=== PATIENT | male | born 1930 | race Caucasian/White ===

== ENCOUNTER 2016-08-28 02:16 | Inpatient (IN) ==
[2016-08-28 02:49] LABS: MANUAL DIFF NEEDED? NO; URINE SOURCE CLEAN CATCH
[2016-08-28 02:54] LABS: BASO% 0.2 % (0.0-0.8); EOS# 0.01 X1000 (0.0-0.7); EOS% 0.1 % (0.0-10.0); HEMATOCRIT 40.1 % (42.0-52.0); HEMOGLOBIN 13.4 g/dL (14.0-18.0); IMM GRAN# 0.08 X1000 (0.0-0.04); IMM GRAN% 0.6 % (0.0-0.5); LYMPH% 7.1 % (20.5-51.1); MCH 32.6 PG (27-31); MCHC 33.4 g/dL (33-37); MCV 97.6 FL (81-99); MONO# 1.64 X1000 (0.11-0.59); MONO% 12.9 % (1.7-9.3); MPV 10.3 FL (7.4-10.4); NEUT% 79.1 % (42.2-75.2); PLT 163 X1000 (130-400); RBC 4.11 XMIL (4.7-6.1)
[2016-08-28 03:05] LABS: UR AMPHETAMINES QUAL NONE DETECTED (NONE DETECT); UR BARBITUATES QUAL NONE DETECTED (NONE DETECT); UR BENZODIAZEPIN QUAL NONE DETECTED (NONE DETECT); UR CANNABINOIDS QUAL NONE DETECTED (NONE DETECT); UR COCAINE QUAL NONE DETECTED (NONE DETECT); UR METHADONE QUAL NONE DETECTED (NONE DETECT); UR OPIATES QUAL NONE DETECTED (NONE DETECT); UR OXYCODONE QUAL NONE DETECTED (NONE DETECT); UR PCP QUAL NONE DETECTED (NONE DETECT)
[2016-08-28 03:17] LABS: ALBUMIN 3.3 g/dL (3.5-5.0); CALCIUM 9.1 mg/dL (8.8-10.2); POTASSIUM 3.5 mmol/L (3.5-5.1); TOTAL BILIRUBIN 0.69 mg/dL (0.20-1.00); TOTAL PROTEIN 6.1 g/dL (6.3-8.3)
[2016-08-28 03:21] LABS: INR 1.07; PROTIME 11.3 Seconds (9.2-11.7); PTT 30.6 Seconds (22.0-36.0)
[2016-08-28] MEDS ORDERED: HEPARIN IV ONE (03:30)
[2016-08-28] MEDS ORDERED: LASIX IV ONE (03:31)
--- NOTE | 2016-08-28 03:33 | PROVIDER DOCUMENTATION ---
This chart was entered by Demetria Russell Scribe, acting as scribe for Arnulfo Michel MD. HPI-General Adult - General Stated Complaint: WEAKNESS Time Seen by Provider: 08/28/16 02:22 Source: patient Allergies/Adverse Reactions: Patient Allergies Allergy/AdvReac Type Severity Reaction Status Date / Time morphine Allergy SHORTNESS Verified 08/11/16 21:33 OF BREATH Home Medications: Home Medication List Medication Instructions Recorded Confirmed Last Taken Type Alfuzosin HCl [Alfuzosin HCl ER] 1 tab PO DAILY 08/11/16 08/28/16 08/27/16 08: 00 History Aspirin 1 tab PO DAILY 08/11/16 08/28/16 08/27/16 08:00 History Budesonide/Formoterol Inhaler 1 - 2 puff INH PRN PRN 08/11/16 08/28/16 08/27/16 18:00 History [Symbicort 160/4.5 Microgm Inhaler] Furosemide 1.5 tab PO DAILY 08/11/16 08/28/16 08/27/16 08:00 History Lovastatin 2 tab PO DAILY 08/11/16 08/28/16 08/27/16 08:00 History Oxybutynin [Ditropan] 1 tab PO BID 08/11/16 08/28/16 08/27/16 21:00 History Prednisone 1 tab PO DAILY 08/11/16 08/28/16 08/27/16 08:00 History Tramadol HCl 1 tab PO Q4H PRN 08/11/16 08/28/16 08/27/16 19:00 History - History of Present Illness -Gen Adult Nature of Presenting Problems: 86 Y/O M presents to ED with weakness. Pt states over the last weak he has gotten worse, c/o of fatigued, states at home 1wk of weakness, stating that tonight he couldn't get off of couch, denies all other symptoms except being fatigued. States he hasn't eat in a day and a half, with occasional N. States that he did drink 1 beer. Location of Pain/Injury: reports: generalized Pain Radiation: reports: no radiation Severity: reports: moderate Onset/Duration: reports: 1 week ago Timing: reports: still present Associated Symptoms: reports: fatigue, nausea. denies: fever/chills, vomiting Review of Systems - Adult - REVIEW OF SYSTEMS - ADULT Constitutional: reports: salo. denies: chills, fever Eyes: reports: no symptoms reported Ears, Nose, Mouth & Throat: reports: no symptoms reported Cardiovascular: reports: no symptoms reported Respiratory: reports: no symptoms reported Gastrointestinal: reports: nausea. denies: abdominal pain, diarrhea, vomiting Genitourinary: reports: no symptoms reported Musculoskeletal: reports: no symptoms reported Integumentary: reports: no symptoms reported Neurological: reports: no symptoms reported Psychiatric: reports: no symptoms reported Endocrine: reports: no symptoms reported Hematologic/Lymphatic: reports: no symptoms reported Allergic/Immunologic: reports: no symptoms reported All Other Systems: Reviewed and Negative Past History - Adult - PAST MEDICAL HISTORY-ADULT Review of Records: reports: Old Records Reviewed, Nursing Assessment Review, Medications Reviewed, Social history reviewed & non-contributory. Major Childhood Illnesses: reports: denies history Cardiovascular: reports: cardiac disease, HTN Respiratory: reports: denies history Gastrointestinal: reports: cancer (bladder) Obstetrical/Gynecological: reports: denies history Genitourinary: reports: denies history Musculoskeletal: reports: denies history Neurological: reports: denies history Endocrine/Immune: reports: denies history Other Conditions: reports: denies history - PRIOR SURGERIES/PROCEDURES Surgical/Procedure History: reports: appendectomy, cholecystectomy - IMMUNIZATION STATUS Childhood Immunizations: See Nurse Assessment Flu Vaccine: See Nurse Assessment - FAMILY HISTORY Family History: reviewed, not pertinent Physical Exam-General - CONSTITUTIONAL General Appearance: alert, no apparent distress - EYES Eyes: PERRL/EOMI, pink conjunctivae, anisocoria - HEAD, EARS, NOSE, MOUTH & THROAT HENMT: normocephalic/atraumatic, moist mucous membranes, normal ENT inspection, TMs normal, pharynx normal - NECK Neck: non-tender, full range of motion, supple, normal inspection - RESPIRATORY Respiratory: lungs clear, normal breath sounds - CARDIOVASCULAR Cardiovascular: irregularly irregular. negative: regular rate, rhythm, no murmur - GASTROINTESTINAL (ABDOMEN) Abdominal Exam: normal bowel sounds, non tender, soft - LYMPHATIC Lymphatic: no adenopathy - MUSCULOSKELETAL Back Exam: normal inspection Extremity: normal range of motion, erythema (pinkish-redness), pedal edema (2+) . negative: inflammation - SKIN Integumentary: normal color, normal turgor, warm/dry - NEUROLOGIC Neurologic: grossly normal - PSYCHIATRIC Psych/Mental Status: normal mood/affect, normal thought content, normal thought process, oriented x 3 Progress - PLAN OF CARE/RESULTS Progress/Plan/Lab Results: Orders Category Date Time Status Cardiac Monitoring DIRECTED Care 08/28/16 02:23 Active Finger Stick Blood Sugar (ED) DIRECTED Care 08/28/16 02:23 Active Graham Cath Insertion ORDERED Care 08/28/16 02:26 Active Oxygen Therapy- ED Nursing DIRECTED Care 08/28/16 02:23 Active Saline Loc NOW Care 08/28/16 02:23 Active CHEST-PORTABLE [RAD] Stat Exams 08/28/16 02:23 Ordered HEAD W/O CONTRAST [CT] Stat Exams 08/28/16 02:23 Ordered ABG [RESP] Routine Lab 08/28/16 02:23 Ordered ALCOHOL BLOOD Stat Lab 08/28/16 02:23 Uncollected CBC WITH ELECTRONIC DIFF [HEME] Stat Lab 08/28/16 02:23 Uncollected CK PROFILE [SP CHEM] Stat Lab 08/28/16 02:23 Uncollected COMPREHENSIVE METABOLIC PANEL [CHEM] Stat Lab 08/28/16 02:23 Uncollected LACTATE, PLASMA [CHEM] Stat Lab 08/28/16 02:23 Uncollected PROTIME WITH INR [COAG] Stat Lab 08/28/16 02:23 Uncollected PTT [COAG] Stat Lab 08/28/16 02:23 Uncollected TROPONIN T Stat Lab 08/28/16 02:23 Uncollected URINALYSIS W/POSS RFLX CULT-1 [URINALYSIS] Stat Lab 08/28/16 02:23 Uncollected URINE DRUG SCREEN Stat Lab 08/28/16 02:23 Uncollected Pulse Oximetry Stat Oth 08/28/16 02:23 Active EKG [EKG] Stat Ther 08/28/16 02:18 Ordered Result Diagrams: 08/28/16 02:30 08/28/16 02:30 - EKG 1 Time of EKG reading by physician:: 02:15 EKG Read and Signed by:: Arnulfo Michel EKG Interpretation (*Must complete 3 of following elements*): Abnormal Rate: 103 Rhythm: Afib with RVR [place]: left (DEVIATION) QRS: RBB, LVH (VOLTAGE CRITERIA) Comments: Abnormal ECG, Inferior&Anterior Infract T wave abnormality - XRAY 1 XRAY Study: Chest Impression: Normal (cardiomegaly) - CONSULTS/PCP/HOSPITALIST Notification #1 *Consult/PCP/Hospitalist*: Dr Call Time Discussed: 03:32 Consult Disposition: Admit Departure - Departure Time of Disposition Decision: 03:32 DIAGNOSIS: Elevated troponin Disposition: ADMITTED INPATIENT 09 Certified Medical Emergency: Emergent Condition: Fair Referrals and Follow-Ups: Benja Beckham [Primary Care Provider] - - Critical Care Note This patient required my direct & personal management of CC.: Yes Total Time (mins): 60 Critical Care Statement: This patient required my direct personal management to treat or rule out processes, the absence of which, could potentiallly result in sudden, clinically significant life or limb threatening deterioration. This chart was documented by the indicated scribe, (Demetria Russell Scribe) and accurately reflects the services I performed and decisions made by me, Arnulfo Michel MD, as attested by the provider's signature.
[2016-08-28 03:34] LABS: UR EPITHELIAL CELLS <10 /HPF (<10); URINE BACTERIA 4+ /HPF; URINE RBC <10 /HPF (<10); URINE WBC TNTC /HPF (<10)
[2016-08-28] MEDS: HEPARIN 25,000 UNITS/D5W 25,000 UNIT/250 ML IV.SOLN IV SCH (03:35)
[2016-08-28] MEDS ORDERED: ROCEPHIN 1 GM/NS 1 GM/50 ML IVPB IV ONE (03:56)
[2016-08-28 04:18] LABS: COLOR YELLOW; URINE CULTURE NEEDED? YES
[2016-08-28 04:19] LABS: BILIRUBIN URINE NEGATIVE (NEGATIVE); BLOOD URINE SMALL (NEGATIVE); GLUCOSE URINE NEGATIVE (NEGATIVE); PROTEIN URINE 30 mg/dL (NEGATIVE); TURBIDITY URINE HAZY (CLEAR); UROBILINOGEN URINE 2 mg/dL (NORMAL)
[2016-08-28 04:20] LABS: LEUKOCYTES URINE MODERATE (NEGATIVE); NITRITE URINE NEGATIVE (NEGATIVE); URINE CASTS NONE SEEN; URINE CRYSTALS NONE SEEN; URINE MICRO REVIEW NEEDED? YES; URINE SMALL ROUND CELLS NONE SEEN
[2016-08-28 04:34] LABS: ALLEN TEST YES; BE 5.2 mmoll (-3.0-3.0); BLOOD TYPE ARTERIAL; DRAW SITE R RADIAL; METHB 0.3 % (0.0-1.5); O2(CT) 20.8 mL/dL (15.0-23.0); PCO2(98.6) 39 mmHg (35-45); PO2(98.6) 70 mmHg (60-100); SAMPLE BLOOD; SAO2 98.1 % (95.0-100.0); THB 15.7 g/dL (11.5-17.4); pH(98.6) 7.48 (7.35-7.45)
[2016-08-28 04:37] LABS: MODALITY ROOM AIR
[2016-08-28] MEDS ORDERED: ZOFRAN IV PRN (05:11)
--- NOTE | 2016-08-28 05:25 | HISTORY AND PHYSICAL ---
CHIEF COMPLAINT: Weakness. PRIMARY CARE PHYSICIAN: Dr. Mannie Beckham. HISTORY OF PRESENTING ILLNESS: An 86-year-old male with a history of hypertension, hyperlipidemia, coronary artery disease, and bladder cancer, who had presented to the emergency department with a nyck-lpk-[id number]-half history of having decline. The patient states that he was getting weak and unable to ambulate, and symptoms were worsening throughout the week. Subsequently, he had come to the emergency department. In the ER, he was evaluated. He had routine laboratories done, which did show he had elevated troponins. Due to his presenting symptoms, it was suspected that he had an OK. Patient will need hospitalization for further management. At the time of my examination, he had denied any headache, vision changes, fevers, chills, chest pain, shortness of breath, but complained of having weakness and not feeling well. PAST MEDICAL HISTORY: Includes hypertension, hyperlipidemia, coronary artery disease, bladder cancer. PAST SURGICAL HISTORY: Coronary artery bypass, cholecystectomy, appendectomy. ALLERGIES: Morphine. CURRENT MEDICATIONS: Listed in the MAR. SOCIAL HISTORY: Former smoker. History of social alcohol use. Denies any illicit drug use. FAMILY HISTORY: Positive for coronary artery disease in father. REVIEW OF SYSTEMS: Twelve point review of systems is listed as in HPI. Other systems negative. PHYSICAL EXAMINATION: GENERAL: Cooperative, friendly male. He is resting comfortably now. VITAL SIGNS: Temperature 99.2 degrees, pulse 94, respiration 18, blood pressure 154/69, saturating 93% on room air. HEENT: Atraumatic, normocephalic. Extraocular movements intact. PERRLA. NECK: No masses. CHEST: Clear to auscultation. CARDIOVASCULAR: Regular rate and rhythm. ABDOMEN: Soft. Positive bowel sounds. EXTREMITIES: +1 edema. NEUROLOGIC: He is awake, alert, oriented x3. GENITOURINARY: No bladder distention. SKIN: Warm. LABORATORIES AND STUDIES: WBC 12.76, hemoglobin 13.4, hematocrit 40.1, platelets 163,000. Troponin is 0.138. Sodium 140, potassium 3.5, chloride 96, CO2 29, BUN is 39, creatinine 1.4, glucose is 91. UA showed +4 bacteria and leukocytes. ASSESSMENT: This is an 86-year-old male with a history of coronary artery disease, hypertension, hyperlipidemia, who had presented to the emergency department with a week-and-a- half history of declining and worsening weakness. He was evaluated in the ER. He was found to have elevated troponins, with suspicion for possible myocardial infarction. Subsequently, he will need hospitalization for further management. 1. Acute myocardial infarction, with elevated troponin. 2. History of coronary artery disease. 3. Hypertension. 4. Hyperlipidemia. 5. Urinary tract infection. 6. Generalized weakness. PLAN: 1. We will admit patient to [facility]. 2. Continue with cardiac workup. Check EKG, serial cardiac enzymes. Have patient continue management on heparin. 3. We will consult Cardiology. 4. We will monitor blood pressure closely. Resume antihypertensive agent. 5. Restart his statin. 6. We will put patient on IV antibiotics. 7. We will consult Physical Therapy. 8. The patient is already on deep venous thrombosis prophylaxis with heparin. 9. We will continue to follow and reassess. cc: Miko Jewell MD MTDD
--- NOTE | 2016-08-28 07:31 | Diag Imaging Result Doc PS360 ---
EXAM: CHEST-PORTABLE HISTORY: AMS TECHNIQUE: Direct AP portable chest dated 08/28/2016 at 0245 hours COMMENT: The inspiration is slightly better than on 08/11/2016. The heart size remains at the upper limits of normal. No definite acute pulmonary disease is present. IMPRESSION: Borderline cardiomegaly. Electronically signed by Roberto Miranda 08/28/2016 7:28 AM
[2016-08-28 09:37] LABS: INR 1.13
--- NOTE | 2016-08-28 09:55 | CONSULTATION ---
DATE OF CONSULTATION: 08/28/2016 INDICATION FOR THE CONSULTATION: Elevated troponin. HISTORY OF PRESENT ILLNESS: Mr. Jang is an 86-year-old, white male who is an extremely poor historian. He has a history of hyperlipidemia and coronary artery disease with previous bypass grafting performed several years ago in [place]. He now currently follows with Dr. Mcclure, last seen by Dr. Mcclure in December of 2015. The patient presented for about 1-2 weeks' worth of progressive weakness. This does not have any lateralizing symptom and seems to be very diffuse. He subsequently this morning reported that he could not get off the couch and subsequently called an ambulance. He reports a history of chest pain occurring on a relatively chronic basis with no recent changes but he is unable to clarify exactly what causes these or how often they are occurring or what it feels like. Again, it does not seem like it has changed significantly recently. He reports his lower extremities have been swelling more recently and he sounds like he has increased his dose of Lasix at home. He denies any overt orthopnea. He reports good oral intake in the preceding 1-2 weeks. Prior to the last 1-2 weeks, it does not sound like he was very active and was mostly couch-bound secondary to weakness as well as right hip pain. He has a history of bladder cancer previously and has reported some dysuria as well but no recent fevers. PAST MEDICAL HISTORY: Per chart review is significant for: 1. Coronary artery disease with history of bypass grafting. This was done in [place] several years ago and I do not have records of this operative report. 2. History of previous myocardial infarction clarified by myocardial perfusion scanning in the fall of 2015 that showed an inferior scar. 3. Hypertension. 4. Hyperlipidemia. 5. Peripheral vascular disease in the form of carotid artery disease. 6. Peptic ulcer disease. 7. COPD. 8. Hyperlipidemia. FAMILY HISTORY: Significant for coronary disease in his father. SOCIAL HISTORY: Previous smoker, quit I believe 16 years ago. No current alcohol. REVIEW OF SYSTEMS: A 10 system review of systems is negative except for those things mentioned in the HPI. PHYSICAL EXAMINATION: Vital Signs: During this hospitalization, he has been afebrile but notably on August 11, he was febrile to 102.8 and was sent home from the ER. His heart rate is 85. His blood pressure is 134/69. His current weight is listed as 149 pounds. However , he was listed at 190 when he came in, which was a verbal. Generally: He is in no acute distress. He is somewhat ill appearing. HEENT: Oropharynx is moist. Poor dentition. Eye examination shows pink conjunctivae. White sclerae. Neck: Examination shows no obvious thyromegaly or thyroid tenderness. Cardiovascular: He sounds to be in a regular rate and rhythm. He has no obvious murmurs. He has no S3. He has no lower extremity edema. Chest: Examination sounds clear to auscultation bilaterally. He has poor inspiratory effort. Abdomen: Soft, nontender, nondistended. He has no obvious organomegaly. Skin Examination: Warm and dry throughout without any rashes. Neurological: He is moving all extremities well. Cranial nerves 2 -12 are intact without any sensation deficits. Psychiatric: He attempts to answer all questions but is not a very good historian. He has normal mood and affect. PERTINENT DATA: His EKG shows sinus rhythm, rate of 103 beats per minute. He has a nonspecific intraventricular conduction delay. His laboratory data shows a white count of 12.7, his hematocrit is 40, his platelet count is 163,000. His ABG shows a pH of 7.48, pCO2 of 39, PO2 of 70. That is on room air. His lactate was 2. His sodium was 140, potassium was 3.5, his BUN was 39, creatinine was 1.4. Two weeks ago, it was 44 and 1.5 respectively. His troponin is 0.138 on the 1st check with a proBNP of 2601. Urinalysis has too numerous to count WBCs and 4+ bacteria. He had a chest x-ray performed that showed evidence for borderline cardiomegaly. ASSESSMENT: 1. Elevated troponin in a patient with a history of coronary artery disease. 2. Urinary tract infection. 3. Diffuse weakness. PLAN: Presently, I would tend to treat the patient medically, considering his poor ability to provide any history as well as difficulty in determining exactly what his symptomatology is. He is not on any medications at home other than oral Lasix. Regarding his history of heart failure, he had an EF in the 40% range by echocardiogram. His nuclear scan showed a preserved EF. I would continue him on aspirin, his oral Lasix. We will keep the heparin going for now and continue to trend his troponins. Echocardiogram is currently pending. We may consider doing myocardial perfusion imaging in the near future. The patient is quite debilitated at baseline and this has only progressed. We will continue to follow for now. cc: Oleg Toro MD MTDHetal
[2016-08-28] MEDS ORDERED: POTASSIUM CHLORIDE 20 MEQ/SWI 20 MEQ/100 ML IVPB IV ONE (10:00)
[2016-08-28 10:04] LABS: PTT HEPARIN PROTOCOL 83.7 Seconds
[2016-08-28] MEDS: PREDNISONE PO SCH (10:20)
[2016-08-28] MEDS: UROXATRAL PO SCH (10:20)
[2016-08-28] MEDS: DITROPAN PO SCH ×2 (10:20→22:20)
[2016-08-28] MEDS: TOPROL XL PO SCH (10:20)
[2016-08-28] MEDS: LASIX PO SCH (10:20)
[2016-08-28] MEDS: ASPIRIN PO SCH (10:21)
[2016-08-28] MEDS ORDERED: VANCOMYCIN IV PER PHARMACY MISC SCH (12:00)
--- NOTE | 2016-08-28 12:27 | PROGRESS NOTE ---
DATE: 08/28/2016 SUBJECTIVE: The patient is awake, alert, and oriented. Answers questions appropriately. He denies having any chest pain. Denies having any nausea, vomiting, or diarrhea. The patient complained of having pain in his both lower extremities and buttocks. OBJECTIVE: Vital Signs: Blood pressure is 134/69, pulse of 85, respirations 18, temperature of 98 degrees, saturation is 100% on 2 L nasal cannula. General Appearance: Elderly white male, in moderate distress due to pain. HEENT: Anicteric sclerae. Clear conjunctivae. Neck: Supple. No JVD. No bruit. Cardiovascular: S1 and S2. Normal rate and rhythm. No murmur, rubs, or gallops. Pulmonary: Clear to auscultation bilaterally. GI: Soft, nontender, nondistended. Normoactive bowel sounds. Musculoskeletal: He has bilateral lower extremity cellulitis and venous stasis. Very warm to touch. His buttocks, he does have a stage II-III sacral decubitus ulcer. Significant Laboratory Data: Sodium 140, potassium 3.5, chloride 96, bicarb 29, BUN 39, creatinine 1.4. Troponin elevated at 0.138. ProBNP is at 2601. ASSESSMENT AND PLAN: This is an 86-year-old admitted to the hospital for weakness and deconditioning. 1. Bilateral lower extremity cellulitis and sacral decubitus ulcer. We will consult wound care. We will send blood culture. Escalate his antibiotic coverage to Zosyn and vancomycin until cultures return. 2. Urinary tract infection. Antibiotic as above. 3. Troponin elevation, probably in the setting of acute renal failure. The patient did not complain of any chest pain. Cardiology consulted. Echocardiogram is pending but the patient is on a heparin drip. We will get cardiology input before stopping the heparin drip. The patient is getting serial troponins currently. 4. Hyperlipidemia. The patient is on Mevacor. 5. Benign prostatic hypertrophy. Continue Uroxatral. 6. Code status. The patient does not want to be intubated or have any chest compression.
[2016-08-28] MEDS ORDERED: VANCOMYCIN 2,000 MG in NS 500 ML IV ONE (14:00)
[2016-08-28] MEDS: ZOSYN 3.375 GM/NS 3.375 GM/50 ML IVPB IV SCH ×3 (14:13→23:53)
--- NOTE | 2016-08-28 15:36 | ECHO REPORT ---
ORDER DATE: 08/28/2016 ECHOCARDIOGRAPHIC MEASUREMENTS: 1. Interventricular septum 1.0, left ventricular posterior wall 1.1, diastolic diameter 5.4, left atrium 3.7, aorta 3.5. 2. Aortic valve leaflets were sclerosed, trileaflet. Pulmonic valve was normal. There is trace pulmonary regurgitation. Tricuspid valve was normal. Mitral valve was normal. 3. Normal left ventricular cavity size. Reduced systolic function. Estimated ejection fraction of 30%-35%. 4. Peak velocity across the aortic valve was 2.2 m/sec. There is no aortic stenosis. There is mild aortic regurgitation. There is mild mitral regurgitation. 5. Mild tricuspid regurgitation. Peak velocity across the tricuspid valve was 3 m/sec. Pulmonary artery systolic pressure of 46 mmHg. 6. There is no pericardial effusion or obvious intracardiac mass or thrombus seen. 7. Technically suboptimal study. Poor acoustic window. cc: MD Miko Dahl MD
[2016-08-28] MEDS: MEVACOR PO SCH (22:20)
[2016-08-29] MEDS: HEPARIN 25,000 UNITS/D5W 25,000 UNIT/250 ML IV.SOLN IV SCH (03:43)
[2016-08-29] MEDS ORDERED: ROCEPHIN 1 GM/NS 1 GM/50 ML IVPB IV SCH (04:00)
[2016-08-29 05:05] LABS: MANUAL DIFF NEEDED? NO
[2016-08-29 05:20] LABS: BASO% 0.1 % (0.0-0.8); EOS# 0.02 X1000 (0.0-0.7); EOS% 0.2 % (0.0-10.0); HEMATOCRIT 36.6 % (42.0-52.0); HEMOGLOBIN 12.2 g/dL (14.0-18.0); IMM GRAN# 0.04 X1000 (0.0-0.04); IMM GRAN% 0.4 % (0.0-0.5); LYMPH# 0.71 X1000 (1.2-3.4); LYMPH% 6.8 % (20.5-51.1); MCH 32.4 PG (27-31); MCHC 33.3 g/dL (33-37); MCV 97.3 FL (81-99); MONO# 1.07 X1000 (0.11-0.59); MONO% 10.3 % (1.7-9.3); MPV 10.5 FL (7.4-10.4); NEUT% 82.2 % (42.2-75.2); PLT 146 X1000 (130-400); RBC 3.76 XMIL (4.7-6.1)
[2016-08-29] MEDS: ZOSYN 3.375 GM/NS 3.375 GM/50 ML IVPB IV SCH ×3 (05:36→18:18)
[2016-08-29 05:58] LABS: CALCIUM 8.2 mg/dL (8.8-10.2); POTASSIUM 2.9 mmol/L (3.5-5.1)
[2016-08-29] MEDS: ASPIRIN PO SCH (08:11)
[2016-08-29] MEDS: LASIX PO SCH (08:11)
[2016-08-29] MEDS: DITROPAN PO SCH ×2 (08:11→21:21)
[2016-08-29] MEDS: TOPROL XL PO SCH (08:11)
[2016-08-29] MEDS: PREDNISONE PO SCH (08:12)
[2016-08-29] MEDS: UROXATRAL PO SCH (08:12)
[2016-08-29] MEDS ORDERED: POTASSIUM CHLORIDE 20 MEQ/SWI 20 MEQ/100 ML IVPB IV ONE (11:01)
[2016-08-29] MEDS ORDERED: KLOR-CON PO ONE (11:02)
[2016-08-29] MEDS ORDERED: NS 500 ML IV ONE (12:01)
--- NOTE | 2016-08-29 12:14 | EKG Report ---
Test Performed on : 08/29/2016 11:54:22 AM Test Reason : cp Blood Pressure : / mmHG Vent. Rate : 070 BPM Atrial Rate : 064 BPM P-R Int : 000 ms QRS Dur : 146 ms QT Int : 452 ms P-R-T Axes : 000 -69 072 degrees QTc Int : 488 ms Atrial fibrillation. with premature ventricular or aberrantly conducted complexes. Left axis deviation Right bundle branch block Voltage criteria for left ventricular hypertrophy Cannot rule out Anteroseptal infarct (cited on or before 28-AUG-2016) Abnormal ECG When compared with ECG of 28-AUG-2016 02:15, Serial changes of Anteroseptal infarct present Confirmed by Timmy aGldamez MD ([id number]) on 08/29/2016 4:18:34 PM
--- NOTE | 2016-08-29 14:40 | PROGRESS NOTE ---
DATE: 08/29/2016 SUBJECTIVE: Today Mr. Jang referred to be doing a little better. According to him, he was in his bedroom on his couch and was there for a very long time. He could not even get out of the bed because of extreme weakness. OBJECTIVE: Vital signs: Blood pressure is 103/53, pulse of 67, respirations 20 , temperature 97.9 degrees. General: Mr. Jang is an 86-year-old male. He was in bed , not seemingly distressed. HEENT: Mucosa is slightly dry. Anicteric. Acyanotic. Neck: Supple. Chest: Air entry is bilaterally reduced. There are a few bibasilar crepitations. Cardiovascular: Regular rate and rhythm. Abdomen: Soft. Mildly tender in the epigastrium. Extremities: Bilateral stasis dermatitis with some erythematous changes consistent with possible superimposed cellulitis. SERVICE SUPERINTENDENT: Patient is alert and oriented. LABORATORY DATA: WBC is 10.39, hemoglobin is 12.2, platelet count of 146. Sodium is 142, potassium is 2.9, chloride is 98, bicarbonate is 27. BUN is 13, creatinine is 1.2. Troponins down to 0.112 to 0.138 yesterday. IMAGING: EKG shows a significant left axis deviation, possible right bundle branch block, occasional PVCs. ASSESSMENT: 1. Generalized weakness possibly due to underlying urine tract infection, as well as possible cardiac event. 2. Gram-negative donis urinary tract infection. 3. Elevated troponins likely due to underlying non-ST segment elevation myocardial infarction. 4. Bilateral lower extremity stasis dermatitis with suspected superimposed bacterial infection. 5. Congestive heart failure. Ejection fraction of 30% to 35%. 6. History of coronary artery disease status post coronary artery bypass graft in the past. GENERAL PLAN: We are going to continue with the current therapy with antibiotics, gentle diuresis, and repeat the patient's EKG for tomorrow morning. He denies any chest pain, however I think the troponin elevation is real and is probably related to a cardiac injury. Patient does have abnormal EKG. Cardiology is on board. cc: Raudel Mcrae MD MTDHetal
[2016-08-29] MEDS: MEVACOR PO SCH (21:19)
[2016-08-29] MEDS: ULTRAM PO PRN (21:20)
[2016-08-30] MEDS: ZOSYN 3.375 GM/NS 3.375 GM/50 ML IVPB IV SCH ×2 (00:58→05:13)
[2016-08-30] MEDS ORDERED: VANCOMYCIN 1,650 MG in NS 250 ML IV SCH (02:00)
[2016-08-30 04:51] LABS: MANUAL DIFF NEEDED? NO
[2016-08-30 05:02] LABS: BASO% 0.3 % (0.0-0.8); EOS# 0.06 X1000 (0.0-0.7); EOS% 0.9 % (0.0-10.0); IMM GRAN# 0.05 X1000 (0.0-0.04); IMM GRAN% 0.7 % (0.0-0.5); LYMPH# 0.98 X1000 (1.2-3.4); LYMPH% 14.1 % (20.5-51.1); MCH 32.2 PG (27-31); MCHC 32.4 g/dL (33-37); MCV 99.4 FL (81-99); MONO# 0.81 X1000 (0.11-0.59); MONO% 11.6 % (1.7-9.3); MPV 10.4 FL (7.4-10.4); NEUT% 72.4 % (42.2-75.2); PLT 143 X1000 (130-400); RBC 3.42 XMIL (4.7-6.1)
[2016-08-30 05:21] LABS: CALCIUM 7.8 mg/dL (8.8-10.2); MAGNESIUM 1.8 mg/dL (1.5-2.7); POTASSIUM 3.3 mmol/L (3.5-5.1)
[2016-08-30] MEDS: TOPROL XL PO SCH (08:49)
[2016-08-30] MEDS: LASIX PO SCH (08:49)
[2016-08-30] MEDS: PREDNISONE PO SCH (08:50)
[2016-08-30] MEDS: ASPIRIN PO SCH (08:50)
[2016-08-30] MEDS: ULTRAM PO PRN (08:51)
[2016-08-30] MEDS: DITROPAN PO SCH ×2 (08:51→21:19)
[2016-08-30] MEDS: UROXATRAL PO SCH (08:52)
[2016-08-30] MEDS ORDERED: LASIX PO SCH ×2 (08:55→09:36)
--- NOTE | 2016-08-30 10:15 | PROGRESS NOTE ---
DATE: 08/30/2016 SUBJECTIVE: Today Mr. Jang referred to be doing a whole lot better. He denies any complaint. He says he is feeling a whole lot stronger. OBJECTIVE: Vital signs: Blood pressure is 132/59, pulse of 61, respirations 16, temperature 98.2 degrees. Patient is saturating 100%. General Appearance: Objectively, Mr. Jang is an 86-year- old male. He was in bed. No distress. HEENT: Mucosa is pink, slightly dry. Anicteric. Acyanotic. Neck: Supple. Chest: Good air entry bilaterally. Few bibasilar crepitations. Cardiovascular: Regular rate and rhythm. Abdomen: Soft, nontender. Extremities: No pedal edema. There is bilateral stasis dermatitis. RADAR SIGNAL PROCESSING ENGINEER: Patient is alert and oriented x4. There is no focal neurological deficit. LABORATORY DATA: WBC is 6.97, hemoglobin is 11.0, platelet count of 143,000. Chemistry is reviewed. Sodium is 145, potassium is 3.3, chloride is 104. BUN is 31, creatinine is 1.7. ASSESSMENT: 1. Generalized weakness at home, likely due to urinary tract infection. 2. Klebsiella pneumoniae urinary tract infection, which is sensitive to cefazolin. We therefore change the antibiotics to oral. 3. Elevated troponin's, likely due to underlying non-ST elevation myocardial infarction. Cardiology is on board. 4. Bilateral lower extremity stasis dermatitis with possible superimposed bacteria infection. This looks a whole lot better. 5. Congestive heart failure. Ejection fraction of 30-35%. Will continue with current medications and recommendations from Cardiology. 6. History of coronary artery disease, status post coronary artery bypass graft in the past. So, in general I think Mr. Jang is doing a whole lot better. We will going to do vitamin D levels to check on his levels and supplement it if necessary. We would order to remove the Graham catheter. Encourage the patient to sit more in the chair. Replace the potassium. I have cut back on his Lasix to only 20 mg daily because he looks extremely dry. I would encourage adequate oral hydration. Anticipate that I may be able to discharge the patient home tomorrow, if cardiology does not plan to do anything else. cc: Raudel Mcrae MD
[2016-08-30] MEDS: KEFLEX PO SCH ×2 (11:18→21:19)
--- NOTE | 2016-08-30 13:30 | PROGRESS NOTE ---
DATE: 08/30/2016 SUBJECTIVE: Mr. Jang reports he feels much better. He has no chest pain. He is tolerating oral intake. PHYSICAL EXAMINATION: He is afebrile. His heart rates in the 60s to 70s. Blood pressure 107/67. General: He is in no acute distress. Cardiovascular: He is in a regular rate and rhythm. He has no obvious murmurs. He has no S3. He has no lower extremity edema. Chest: Clear bilaterally. He has no increased work of breathing. Abdomen: Soft, nontender, nondistended. He has no obvious organomegaly. Skin Exam: Warm and dry throughout without any rashes. PERTINENT DATA: White count is 6.9, hematocrit is 34. His platelet count is 143,000. His sodium is 145, potassium 3.3. BUN 31, creatinine 1.3. ASSESSMENT: Elevated troponin in the setting of a urinary tract infection. PLAN: We will continue him on current medications. We will continue to treat him medically with aspirin. The patient is somewhat frail. He had an echo done in January that demonstrated an EF of 38-40%. His current ejection fraction is in the range of 35%. This is stable for this patient. I would continue him on a beta-eduardo aspirin therapy presently. He is not having any anginal type symptoms. cc: Oleg Toro MD
[2016-08-30] MEDS: MEVACOR PO SCH (21:19)
[2016-08-31 06:19] LABS: CALCIUM 7.8 mg/dL (8.8-10.2); POTASSIUM 3.7 mmol/L (3.5-5.1)
[2016-08-31] MEDS: ULTRAM PO PRN (07:32)
[2016-08-31] MEDS: KEFLEX PO SCH (08:19)
[2016-08-31] MEDS: ASPIRIN PO SCH (08:19)
[2016-08-31] MEDS: DITROPAN PO SCH (08:19)
[2016-08-31] MEDS: PREDNISONE PO SCH (08:20)
[2016-08-31] MEDS: UROXATRAL PO SCH (08:20)
[2016-08-31] MEDS: TOPROL XL PO SCH (08:20)
[2016-08-31] MEDS ORDERED: VITAMIN D PO SCH (09:00)
[2016-08-31 12:26] VITALS: BP 117/60
[2016-08-31] MEDS ORDERED: HEPARIN IV ONE (15:30)
--- NOTE | 2016-09-06 11:10 | DISCHARGE SUMMARY ---
ADMISSION DATE: 08/28/2016 DISCHARGE DATE: 08/31/2016 DISPOSITION: Home with home health. FOLLOWUP: 1. Benja Beckham MD. 2. Oleg Toro MD. CONSULTATIONS: During this admission: Cardiology was consulted. Patient was seen by Dr. Toro. INVASIVE PROCEDURES: Done during this admission, none. IMAGING STUDIES OF SIGNIFICANCE: Echocardiogram was done which showed ejection fraction of 30- 35%. ADMISSION DIAGNOSES: 1. Myocardial infarction. 2. Coronary artery disease. 3. Hypertension. 4. Urinary tract infection. 5. Generalized weakness. DISCHARGE DIAGNOSES: 1. Generalized weakness at home, likely due to urinary tract infection. 2. Klebsiella pneumoniae urinary tract infection. 3. Non ST-elevation myocardial infarction. 4. Bilateral lower extremity stasis dermatitis. 5. Congestive heart failure. Ejection fraction of 30-35%. 6. History of coronary artery disease, status post coronary artery bypass graft. 7. Vitamin D deficiency. DISCHARGE MEDICATIONS: 1. Symbicort inhaler. 2. Aspirin 81 mg daily. 3. Oxybutynin 1 tablet b.i.d. 4. Furosemide 20 mg daily. 5. Cephalexin 500 b.i.d. 6. Metoprolol 25 mg daily. 7. Cholecalciferol 1000 units p.o. daily. 8. Lovastatin. PRESENTING COMPLAINT: Generalized weakness. HISTORY OF PRESENTING COMPLAINT: Mr. Jang is an 86-year-old, male with a history of hypertension, dyslipidemia, coronary artery disease, who presented to the emergency department due to a week and a half history of generalized weakness and decline. The patient upon presentation was evaluated. Found to have dirty urine, was admitted for UTI. HOSPITAL COURSE: The patient did pretty well during the hospital course. He was started on IV antibiotics and urine culture came back to be positive for Klebsiella pneumoniae. Antibiotics were narrowed to cephalexin oral for a total of 1 week therapy. The patient was also found to be severely vitamin D deficient, which we think has been also contributing to the generalized weakness. Workup in the hospital also found that the patient had non-STEMI. He was evaluated by Cardiology and recommended only to treat with medical therapy. The patient was started on beta eduardo, was continued on aspirin and RIVERA inhibitors. The patient also participated multiple times with physical therapy. At the day of discharge, he was completely stable. His vitals were blood pressure 117/60, pulse of 61, respirations 16, temperature is 97.7. Patient was in stable medical condition for discharge. DISPOSITION: 1. Home. 2. Activity as tolerated. 3. Diet: Healthy heart diet. FOLLOWUP: With PCP, Dr. Benja Beckham, and cardiology Dr. Toro. At the time of discharge, there was not any pending labs or imaging studies. TIME SPENT: On discharge was 37 minutes. cc: Raudel Mcrae MD
== END 2016-08-31 16:23 | disposition home health service (06) ==
LOC: ED 02:16 → 3S 04:48 → SUATTDRO 04:48
PROVIDERS: ATTEND Internal Medicine

== ENCOUNTER 2016-10-08 05:36 | Inpatient (IN) ==
--- NOTE | 2016-10-08 06:04 | PROVIDER DOCUMENTATION ---
HPI-Musculoskeletal Pain/Inj - GENERAL Chief Complaint: Edema Stated Complaint: edema Time Seen by Provider: 10/08/16 05:49 - HX OF PRESENT ILLNESS-MUSKULOSKELTAL Nature of Presenting Problem: Pt had bilateral venous doppler about 11 days ago and had only venous insufficiency. he was treated with diuretics and his other leg improved but the left is now still swollen and now painful Review of Systems - Adult - REVIEW OF SYSTEMS - ADULT Constitutional: denies: chills, fever Eyes: denies: discharge, blurred vision Ears, Nose, Mouth & Throat: denies: hearing loss, nose pain Cardiovascular: denies: chest pain, heart murmur Respiratory: denies: chronic cough, hemoptysis Gastrointestinal: denies: hematemesis, difficulty swallowing, vomiting Musculoskeletal: reports: other (swollen , painful, and venous congested left lower extremity) Past History - Adult - PAST MEDICAL HISTORY-ADULT Review of Records: reports: Nursing Assessment Review, Medications Reviewed Major Childhood Illnesses: reports: denies history Cardiovascular: reports: cardiac disease, HTN Respiratory: reports: denies history Gastrointestinal: reports: cancer (bladder) Obstetrical/Gynecological: reports: denies history Genitourinary: reports: denies history Musculoskeletal: reports: denies history Neurological: reports: denies history Endocrine/Immune: reports: denies history Other Conditions: reports: denies history - PRIOR SURGERIES/PROCEDURES Surgical/Procedure History: reports: appendectomy, cholecystectomy - IMMUNIZATION STATUS Childhood Immunizations: See Nurse Assessment Flu Vaccine: See Nurse Assessment - FAMILY HISTORY Family History: reviewed, not pertinent Physical Exam-Injury Related - Physical Exam-Injury Related Initial Vital Signs Reviewed: Yes General Appearance: appears well, alert, moderate distress Eyes: PERRL/EOMI, pink conjunctivae Head, Ears, Nose, Mouth & Throat: normocephalic/atraumatic, moist mucous membranes, normal ENT inspection, TMs normal Neck: non-tender, full range of motion, supple, normal inspection Respiratory: chest non-tender, lungs clear, normal breath sounds, no pleuratic chest pain, no respiratory distress, no accessory muscle use Cardiovascular: normal peripheral pulses, regular rate, rhythm, no edema, no gallop, no JVD, no murmur Chest/Breast: no tenderness Back Exam: normal inspection, no CVA tenderness Extremity: erythema, inflammation, pedal edema (left lower leg has venous stadis and swelling), slow capillary refill, swelling, tenderness Progress - PLAN OF CARE/RESULTS Progress/Plan/Lab Results: Vital Signs - 8 hr 10/08/16 05:41 10/08/16 05:42 10/08/16 07:00 Temperature 99.0 F Pulse Rate 91 H 83 80 Respiratory Rate 24 27 H 20 Blood Pressure 105/80 105/80 104/88 O2 Sat by Pulse Oximetry 95 99 10/08/16 08:20 Temperature Pulse Rate 105 H Respiratory Rate 16 Blood Pressure 142/99 O2 Sat by Pulse Oximetry 92 L Laboratory Results - last 24 hr 10/08/16 10/08/16 10/08/16 05:40 05:40 05:40 WBC 14.60 H RBC 3.87 L Hgb 12.4 L Hct 37.3 L MCV 96.4 MCH 32.0 H MCHC 33.2 RDW Std Deviation 14.1 Plt Count 168 MPV 10.7 H Immature Gran % (Auto) 0.3 Neut % (Auto) 87.6 H Lymph % (Auto) 5.1 L [place] % (Auto) 6.8 Eos % (Auto) 0.1 Baso % (Auto) 0.1 Immature Gran # (Auto) 0.05 H Neut # (Auto) 12.77 H Lymph # (Auto) 0.74 L [place] # (Auto) 1.00 H Eos # (Auto) 0.02 Baso # (Auto) 0.02 D-Dimer Sodium 143 Potassium 3.5 Chloride 99 Carbon Dioxide 26 Anion Gap 18 BUN 36 H Creatinine 1.6 H Estimated GFR/1.73 m2 41 BUN/Creatinine Ratio 23 Glucose 91 Calculated Osmolality 293 Calcium 9.2 Total Bilirubin 0.80 AST 55 H ALT 51 H Alkaline Phosphatase 89 Mxb-A-Sbpgjszbqby Pept 4043 H Total Protein 6.1 L Albumin 3.6 Globulin 2.5 Albumin/Globulin Ratio 1.4 Plasma Lactate 10/08/16 10/08/16 05:40 05:40 WBC RBC Hgb Hct MCV MCH MCHC RDW Std Deviation Plt Count MPV Immature Gran % (Auto) Neut % (Auto) Lymph % (Auto) [place] % (Auto) Eos % (Auto) Baso % (Auto) Immature Gran # (Auto) Neut # (Auto) Lymph # (Auto) [place] # (Auto) Eos # (Auto) Baso # (Auto) D-Dimer 1.29 H Sodium Potassium Chloride Carbon Dioxide Anion Gap BUN Creatinine Estimated GFR/1.73 m2 BUN/Creatinine Ratio Glucose Calculated Osmolality Calcium Total Bilirubin AST ALT Alkaline Phosphatase Wle-D-Vjgwqqyhafb Pept Total Protein Albumin Globulin Albumin/Globulin Ratio Plasma Lactate 2.3 H Orders Category Date Time Status Admit Patient To Inpatient Status Routine AdmDCTranf 10/08/16 08:27 Ordered cxr [CHEST-PORTABLE] [RAD] Stat Exams 10/08/16 07:12 Completed BLOOD CULTURE [BLDCUL] Stat Lab 10/08/16 07:42 Received CBC WITH ELECTRONIC DIFF [HEME] Stat Lab 10/08/16 05:40 Completed CMP [COMPREHENSIVE METABOLIC PANEL] [CHEM] Stat Lab 10/08/16 05:40 Completed Ddimer [D-DIMER] [CHEM] Stat Lab 10/08/16 05:40 Completed LACTATE, PLASMA [CHEM] Stat Lab 10/08/16 05:40 Completed LACTATE, PLASMA [CHEM] Stat Lab 10/08/16 08:48 Received pro-bnp [PRO B-NATRIURETIC PEPTIDE] Stat Lab 10/08/16 05:40 Completed Furosemide [Lasix] Med 10/08/16 07:02 Discontinued 60 mg IV NOW ONE Hydrocodone/APAP 7.5 mg/325 mg [[place]-7.5] Med 10/08/16 08:35 Discontinued 1 each PO NOW ONE Venous U/S Left Leg Stat Ther 10/08/16 06:07 Ordered Transfer/Admit Order [TRANSFER] Routine Transfer 10/08/16 08:28 Ordered Result Diagrams: 10/08/16 05:40 10/08/16 05:40 - REASSESSMENT Reassessment #1 Time Reassessed: 07:43 Status: improving (maybe some relief from elevating leg) Reassessment #2 Time Reassessed: 08:56 Status: worsening (needs some medication for pain) Departure - Departure Date of Disposition Decision: 10/08/16 Time of Disposition Decision: 08:56 DIAGNOSIS: Venous stasis dermatitis of left lower extremity, Cellulitis and abscess of left leg Disposition: ADMITTED INPATIENT 09 Certified Medical Emergency: Emergent Condition: Stable - Critical Care Note This patient required my direct & personal management of CC.: No
[2016-10-08 06:30] LABS: BASO% 0.1 % (0.0-0.8); EOS# 0.02 X1000 (0.0-0.7); EOS% 0.1 % (0.0-10.0); HEMATOCRIT 37.3 % (42.0-52.0); HEMOGLOBIN 12.4 g/dL (14.0-18.0); IMM GRAN# 0.05 X1000 (0.0-0.04); IMM GRAN% 0.3 % (0.0-0.5); LYMPH# 0.74 X1000 (1.2-3.4); LYMPH% 5.1 % (20.5-51.1); MANUAL DIFF NEEDED? NO; MCHC 33.2 g/dL (33-37); MCV 96.4 FL (81-99); MONO% 6.8 % (1.7-9.3); MPV 10.7 FL (7.4-10.4); NEUT% 87.6 % (42.2-75.2); PLT 168 X1000 (130-400); RBC 3.87 XMIL (4.7-6.1)
[2016-10-08 06:43] LABS: ALBUMIN 3.6 g/dL (3.5-5.0); CALCIUM 9.2 mg/dL (8.8-10.2); POTASSIUM 3.5 mmol/L (3.5-5.1); TOTAL BILIRUBIN 0.8 mg/dL (0.20-1.00); TOTAL PROTEIN 6.1 g/dL (6.3-8.3)
[2016-10-08] MEDS ORDERED: LASIX IV ONE (07:02)
--- NOTE | 2016-10-08 07:33 | Diag Imaging Result Doc PS360 ---
EXAM: CHEST-PORTABLE HISTORY: Leukocytosis TECHNIQUE: AP portable in Trendelenburg at 0730 COMMENT: There are sternotomy wires. The heart size is at the upper limits of normal. There is mild interstitial pulmonary edema which is particularly notable over the right lower lobe. IMPRESSION: Mild pulmonary edema. Electronically signed by Roberto Miranda 10/08/2016 7:30 AM
[2016-10-08] MEDS ORDERED: NORCO-7.5 PO ONE (08:35)
[2016-10-08] MEDS ORDERED: ROCEPHIN 1 GM/NS 1 GM/50 ML IVPB IV SCH (09:24)
--- NOTE | 2016-10-08 09:55 | Diag Imaging Result Doc PS360 ---
ANGIOGRAM/PULMONARY ARTERIES - 10/08/2016 INDICATION: elevated d dimer TECHNIQUE: A CT dose reduction protocol was used. COMPARISON: None FINDINGS: There is a right chest port in good position. The left lobe of the thyroid is enlarged and heterogeneous. This measures about 5 x 3 cm. No adenopathy in the chest. There is cardiomegaly. There is heavy calcified triple-vessel coronary artery disease. There are CABG changes. No definite pulmonary embolism. There is moderately advanced COPD and significant chronic bronchitis. No significant infiltrates. There are moderate degenerative changes of the spine. No acute or suspicious bony lesion. IMPRESSION: 1. No definite pulmonary embolism. 2. COPD with significant chronic bronchitis. 3. Cardiomegaly. 4. Thyroid goiter involving the left lobe of the thyroid. Electronically signed by Jesus Segundo 10/08/2016 9:53 AM
[2016-10-08] MEDS ORDERED: NS 1,000 ML IV SCH (11:50)
[2016-10-08] MEDS ORDERED: ROCEPHIN 1 GM/NS 1 GM/50 ML IVPB IV ONE (12:00)
[2016-10-08] MEDS ORDERED: MAXIPIME 1 GM/NS 1 GM/50 ML IVPB IV SCH (12:00)
[2016-10-08] MEDS: NS 1,000 ML IV SCH (12:23)
[2016-10-08] MEDS ORDERED: DUONEB (A & A) INH PRN (12:54)
[2016-10-08 14:11] LABS: CK INDEX 1.4 (0.0-2.5); CK-MB 4.15 ng/mL (0.0-5.0)
--- NOTE | 2016-10-08 14:24 | HISTORY AND PHYSICAL ---
CHIEF COMPLAINT: Left leg pain. HISTORY OF PRESENT ILLNESS: Mr. Jang is an 86-year-old male with a history of coronary disease, status post ID, systolic heart failure with a known EF of 35% , hypertension and others, who presents to the ER with 2 weeks of left lower extremity edema, pain and redness. His initial symptoms started around 2 weeks ago when he reported generalized edema, likely secondary to CHF. He took his Lasix as directed and did diurese which subsequently decreased his swelling except for his left leg. Since that time, he has had increasing redness, warmth to touch and pain in the left lower extremity. He denies any fever or chills, but he does report chest pain with exertion and chronic shortness of breath and orthopnea. He came to the ER today for evaluation. In the ER, he had venous Doppler done which did not show anything acute. He was noted to have leukocytosis, so blood cultures were obtained, and broad spectrum antibiotics were initiated. In the ER, he also had an elevated D-dimer which prompted a CTA of the chest which was subsequently negative for PE but did show COPD changes. He was also found to have some mild interstitial edema, cardiomegaly and thyroid goiter involving the left lobe of the thyroid. He was also given 60 mg of Lasix IV by the ER. He is now going to be admitted for further treatment and evaluation. PAST MEDICAL HISTORY: 1. CAD, status post non-STEMI last month. 2. Systolic heart failure, EF of 35%. 3. History of bladder cancer. 4. Hypertension. 5. Hyperlipidemia. 6. PVD. 7. PUD. 8. COPD. 9. Hyperlipidemia. PAST SURGICAL HISTORY: He has had a CABG, cholecystectomy, appendectomy. SOCIAL HISTORY: The patient quit smoking some time ago. He denies illicit drug or nicotine use. He does drink an occasional beer. FAMILY HISTORY: Noncontributory. REVIEW OF SYSTEMS: A 14-point review of systems is obtained and found to be negative with the exception of the HPI. ALLERGIES: Morphine. MEDICATIONS: Ramipril 2.5 mg daily, Klor-Con 20 mEq p.o. daily, tramadol as needed for pain, prednisone unknown dose daily, Ditropan unknown dose b.i.d., Toprol-XL 25 mg daily, lovastatin 2 tabs daily, Lasix 20 mg p.o. daily, vitamin D3 1000 units p.o. daily, Symbicort 160/45 mcg inhaled as needed, aspirin 1 daily with dose unknown, alfuzosin 1 tab daily with dose unknown. PHYSICAL EXAMINATION: VITAL SIGNS: Blood pressure is 116/71, heart rate 89, respiratory rate 18, O2 saturation is 100% on 2 L, temperature 97.5. GENERAL: This is a frail and elderly 86-year-old male lying in a hospital bed in no acute distress. NEUROLOGICAL: The patient is awake and alert. He is slightly confused. He does not know the name of the hospital or the city but does know his name and date of . He also knows what year it is. He follows commands without focal deficit. HEENT: Head is normocephalic and atraumatic. Pupils are equal, round and reactive to light. Oral mucosa is moist. NECK: Trachea is midline. There is no JVD. CHEST: Diminished at the bases but clear to auscultation. CARDIOVASCULAR: Regular. S1 and S2 noted. No murmurs. GASTROINTESTINAL: Soft, nondistended and nontender. EXTREMITIES: Left lower extremity with deep redness circumferentially extending up just below the knee. Pulses are diminished but palpable but foot is warm. Right lower extremity with same type of redness that extends up to just above the ankle. NEUROLOGICAL: Intact bilaterally. DIAGNOSTIC DATA: Chest x-ray shows mild pulmonary edema. Pulmonary arteriogram shows no PE, COPD with significant chronic bronchitis, cardiomegaly and thyroid goiter involving the left lobe of the thyroid. WBC is 14.6, hemoglobin 12.4, hematocrit 37.3, platelet count 168. D-dimer is 1.29. Sodium is 143, potassium 2.5, chloride 99, CO2 is 26, anion gap is 18, BUN is 36 , creatinine 1.6, glucose 91, bilirubin is 0.8, AST is 55, ALT is 51, alkaline phosphatase 89. ProBNP is 4043. Protein 6.1, lactate 1.2. ASSESSMENT AND PLAN: 1. Bilateral lower extremity cellulitis. We have drawn blood cultures and started cefepime. We will consult Dr. Whitmore and check arterial Doppler ultrasounds. 2. Acute on chronic systolic heart failure. The patient was given 60 mg of Lasix in the ER. We will continue to follow strict I's and O's and daily weights. We will monitor telemetry. The patient does report chest pain with exertion, so we will make sure and trend his enzymes. There is no PE. 3. Acute on chronic renal failure. Looking at the patient's baseline creatinine , it would seem that his baseline is around 1.4, so he is a little bit higher than normal. I would not be surprised to see at least a small bump in his creatinine given the fact that he had a CTA and 60 mg of Lasix. We are going to order comprehensive urine studies and lightly hydrate, monitoring his respiratory status and overall vascular status carefully. Will order urine studies as well. 4. Hypertension and hyperlipidemia. Chronic and stable. Continue home medications with the exception of his ramipril. 5. Chronic obstructive pulmonary disease. We will continue breathing treatments and aggressive pulmonary toilet. He does not seem to be in exacerbation at this time. 6. DVT prophylaxis with Lovenox. Further recommendations to follow. Dictated by PRIMITIVO Lopez for Melva Bennett MD cc: PRIMITIVO Lopez MD The patient was seen and examined by me. I agree with the assessment and plan as dictated. [facility]
[2016-10-08] MEDS ORDERED: VITAMIN D PO SCH (15:30)
[2016-10-08] MEDS ORDERED: DUONEB (A & A) INH SCH (15:30)
[2016-10-08] MEDS: DUONEB (A & A) INH SCH ×2 (16:15→21:30)
[2016-10-08 16:41] LABS: URINE MICRO REVIEW NEEDED? NO; URINE SOURCE VOIDED
[2016-10-08 16:51] LABS: BILIRUBIN URINE NEGATIVE (NEGATIVE); BLOOD URINE TRACE (NEGATIVE); COLOR YELLOW; GLUCOSE URINE NEGATIVE (NEGATIVE); LEUKOCYTES URINE NEGATIVE (NEGATIVE); NITRITE URINE NEGATIVE (NEGATIVE); PH URINE 5.5; PROTEIN URINE NEGATIVE (NEGATIVE); SP GRAVITY URINE 1.029; TURBIDITY URINE CLEAR (CLEAR); UROBILINOGEN URINE NORMAL (NORMAL)
[2016-10-08 16:52] LABS: UR EPITHELIAL CELLS <10 /HPF (<10); URINE BACTERIA NEGATIVE /HPF; URINE RBC <10 /HPF (<10); URINE WBC <10 /HPF (<10)
[2016-10-08 17:00] LABS: UR CREAT RANDOM 39.7 mg/dL (14-26); UR PROT RANDOM 8.1 mg/dL
[2016-10-08] MEDS: KEFZOL 2 GM/D5W 2 GM/50 ML IVPB IV SCH (18:16)
--- NOTE | 2016-10-08 18:53 | Extremity Venous Study ---
PROCEDURE NAME: Venous U/S Left Leg - 10/08/2016 LEFT LOWER EXTREMITY VENOUS IMAGES: REFERRING PHYSICIAN: Dr. Barrera GRAHAM. INTERPRETING PHYSICIAN: Dr. Beckham. TECHNIQUE: [place]. INDICATION: The patient has left leg pain and edema. FINDINGS: The left lower extremity is imaged. The common femoral, superficial femoral, deep femoral, popliteal, posterior tibial, peroneal, and greater saphenous are imaged. The right common femoral vein is imaged for comparison purposes. Doppler is used to evaluate the veins for spontaneity, phasicity, respiratory excursion, and distal augmentation. All veins are compressible. No intraluminal clot is seen. Some reflux on the left common femoral vein. INTERPRETATION: No evidence of deep or superficial venous thrombosis the left lower extremity veins identified. Some reflux on the left common femoral vein. This study has not changed compared the study of 09/28/2016. cc: Junior Beckham MD
[2016-10-08] MEDS: NORCO-7.5 PO PRN (20:21)
[2016-10-08] MEDS: DOXYCYCLINE PO SCH (20:21)
[2016-10-08] MEDS: HEPARIN SUBQ SCH (20:22)
--- NOTE | 2016-10-08 21:01 | CONSULTATION ---
DATE OF CONSULTATION: 10/08/2016 CONCLUSION: Patient has left leg cellulitis. There may be an element of cellulitis on the right leg as well. RECOMMENDATIONS: I have switched the patient to a combination of cefazolin and doxycycline. Also, I have ordered the patient to keep his legs elevated as much as possible and finally, I have ordered that the patient should have the foot of his bed elevated with the manual Gatch at all times. DISCUSSION: The patient was somewhat a vague historian. He told me at 1 time that he was having swelling and redness in his left leg for 2 years and then at other times he told me it was only in the past few days. In any event, he has been admitted to the hospital with left leg cellulitis. He has been on Cefepime, and he does try to elevate his leg on a pillow in the bed. His laboratory studies thus far show a CBC with a white count of 14,600, hemoglobin 12.4, and platelet count 168,000. Creatinine is 1.6. GFR is 41. Blood cultures are pending. CT angiogram showed no pulmonary emboli. It did show COPD with bronchitis and a left thyroid goiter. Chest x-ray showed pulmonary edema. PAST MEDICAL HISTORY/REVIEW OF SYSTEMS: Eyes and ears: Patient has decreased hearing and vision. Neck: No meningismus. Respiratory: The patient does occasionally cough and does get out of breath with very limited exertion. GI: No nausea, vomiting, or diarrhea. Genitourinary: No dysuria or flank pain. Endocrine: Patient does not have diabetes or thyroid disease. Bones, joints, muscles: No joint pain or muscle aches. Patient has bladder cancer, hypertension and coronary artery disease. PREVIOUS HOSPITALIZATIONS AND OPERATIONS: He has had surgery on his bladder for cancer. He has cancer of the bladder surgery. He has also had coronary artery bypass grafting, cholecystectomy and appendectomy. MEDICAL DISEASES: Positive for cancer, hypertension, angina pectoris and coronary artery disease. Patient has hyperlipidemia. INFECTIOUS DISEASE HISTORY: Positive for pneumonia, UTI and leg cellulitis. FAMILY HISTORY: Positive for hypertension and cancer. SOCIAL HISTORY: The patient moved from [facility] to [place]. He is , but he has not been able to keep track of his . The patient lives alone, does not have any pets. ALLERGIES: He is allergic to morphine. HOME MEDICATIONS: He is on ramipril, potassium, tramadol, prednisone, Ditropan, metoprolol, lovastatin, furosemide, cholecalciferol, Symbicort, aspirin, and alfuzosin. PHYSICAL EXAMINATION: Temperature 97.5 degrees, pulse 89, respirations 17, blood pressure 116/71. Patient's weight is listed as 151 pounds.General: This is an ill-appearing, elderly male. He is in no acute distress. Head, eyes, ears, nose, and throat: He had marked decrease in his hearing. He can see near objects. No drainage is noted from the nose or ears. Neck: No meningismus. Thorax: No increased AP diameter of the chest. Lungs: Clear to auscultation. Cardiovascular: Heart rate was irregular. His left leg is larger than the right due to swelling and erythema of the right leg. Abdomen: Soft and nontender. Neurologic: Patient is awake. He can move his extremities. There is no tremor. His sensation is intact to touch. His memory as regarding his medical history was decreased. Thank you for the consult. cc: Gurpreet Whitmore MD
[2016-10-08 22:19] LABS: CK INDEX 0.7 (0.0-2.5); CK-MB 3.14 ng/mL (0.0-5.0)
[2016-10-09] MEDS: DUONEB (A & A) INH SCH ×4 (03:19→22:05)
[2016-10-09] MEDS: NORCO-7.5 PO PRN ×3 (03:47→23:30)
[2016-10-09] MEDS: NS 1,000 ML IV SCH ×2 (03:48→16:17)
[2016-10-09] MEDS: KEFZOL 2 GM/D5W 2 GM/50 ML IVPB IV SCH ×2 (06:00→16:06)
[2016-10-09] MEDS: PRILOSEC PO SCH (06:05)
[2016-10-09 06:13] LABS: MCH 31.7 PG (27-31); MCHC 32.3 g/dL (33-37); MCV 98.4 FL (81-99); MPV 10.4 FL (7.4-10.4); RBC 3.15 XMIL (4.7-6.1)
--- NOTE | 2016-10-09 07:11 | VASCULAR LAB ---
DATE: 10/08/2016 STUDY: Lower extremity arterial study at rest. REFERRING PHYSICIAN: Dr. Bennett. INTERPRETING PHYSICIAN: Dr. Beckham. TECH: [place]. INDICATION: The patient is hypertensive, has had coronary bypass, has quit smoking. He has pain, edema, and redness with chronic venous insufficiency bilaterally. Brachial pressure 142 on the right, 149 on the left. Right high thigh pressure 76. Right low thigh pressure 68. Right calf pressure 194. Right dorsalis pedis 68. Right posterior tibial 142. On the left, high thigh pressure is 80. Left low thigh pressure 65. Left calf pressure 61. Left dorsalis pedis 85. Left posterior tibial pressure 34. Right AB index 0.95, left AB index 0.57. The PVRs are not interpretable due to the patient's movement. INTERPRETATION: In view of the high thigh pressures, I would say that this patient has compromised flow from the groins down. It may be in the iliacs or the superficial femorals bilaterally. If one is concerned about the arterial flow, then consideration should be given to CT angiography. cc: MD Bridger Alcaraz CRNP
[2016-10-09 07:27] LABS: ALBUMIN 2.8 g/dL (3.5-5.0); CALCIUM 8.3 mg/dL (8.8-10.2); DIRECT BILIRUBIN 0.5 mg/dL (0.00-0.20); POTASSIUM 3.2 mmol/L (3.5-5.1); TOTAL BILIRUBIN 0.91 mg/dL (0.20-1.00); TOTAL PROTEIN 4.3 g/dL (6.3-8.3)
[2016-10-09] MEDS ORDERED: KLOR-CON PO ONE (07:47)
--- NOTE | 2016-10-09 08:08 | Diag Imaging Result Doc PS360 ---
EXAM: CHEST-PORTABLE INDICATION: dyspnea TECHNIQUE: One view COMPARISON: 10/08/2016 FINDINGS: Right chest port is stable. The already mild interstitial edema appears to have improved slightly. No new consolidations are appreciated. Cardiac silhouette is stable. IMPRESSION: Slight improvement in the already mild interstitial edema. Electronically signed by Conner Jimenez 10/09/2016 8:06 AM
[2016-10-09] MEDS: UROXATRAL PO SCH (08:58)
[2016-10-09] MEDS: DOXYCYCLINE PO SCH ×2 (08:58→23:32)
[2016-10-09] MEDS: HEPARIN SUBQ SCH ×2 (08:58→23:32)
--- NOTE | 2016-10-09 13:49 | PROGRESS NOTE ---
DATE: 10/09/2016 SUBJECTIVE: This patient states that he is feeling better. He is still complaining of left lower extremity pain, mostly at the level of the cast. He is not complaining of shortness of breath or chest pain. No nausea, no vomiting, no diarrhea, no constipation. OBJECTIVE: Vital Signs: Temperature 97.7 degrees, pulse 69, respiratory rate 16, blood pressure 127/78, O2 saturation 96% on 2L nasal cannula. HEENT: Head normocephalic. No trauma. PERRLA. Neck: Supple. No JVD. No masses. Central trachea. Chest: Decreased breath sounds bilaterally. Prolonged expiratory phase. Cardiovascular: RRR. No murmurs. Abdomen: Soft, nontender, nondistended. No hepatosplenomegaly. Extremities: Left lower extremity with deep redness circumferentially up to the knee. Right lower extremity with the same type of redness, but compared with the left leg, it does not look that bad. Pulses are diminished and the feet are warm. Neurologic: The patient is alert and oriented x3. He moves all 4 extremities. LABORATORY: WBC 8.9, hemoglobin 10, hematocrit 31, platelets 121,000. Sodium 144, potassium 3.2, chloride 102, bicarbonate 26, BUN 31, creatinine 1.4, glucose 87, calcium 8.3, albumin 2.8, folate 8.3. ASSESSMENT AND PLAN: 1. Bilateral lower extremity cellulitis. Blood cultures and urine culture have been negative so far. We will continue with antibiotics. Infectious Disease Department is following this patient. 2. Acute on chronic systolic heart failure. He is not complaining of chest pain or shortness of breath at this moment. He is on furosemide at home, low dose, around 20 mg p.o. daily. I will put this patient back on that medication. 3. Acute on chronic renal failure, resolved. His creatinine is around his baseline. 4. Hypertension and hyperlipidemia, chronic and stable. Continue with home medication except RIVERA inhibitor. 5. Chronic obstructive pulmonary disease. Continue with breathing treatment and aggressive pulmonary toilet. He does not have chronic obstructive pulmonary disease exacerbation. 6. Deep vein thrombosis prophylaxis with Lovenox. cc: Denny Dodge MD
--- NOTE | 2016-10-09 18:37 | PROGRESS NOTE ---
DATE: 10/09/2016 PRESENT ILLNESS: The patient has cellulitis of the legs. MEDICATIONS: The patient currently is receiving Ancef and doxycycline. Also we have elevated the foot of the patient's bed with a manual Gatch. PHYSICAL EXAMINATION: Vital Signs: Temperature 98 degrees, pulse 89, respirations 17, blood pressure 114/62. General: This is a chronically ill-appearing, elderly male. He is in no acute distress. Lungs: Clear to auscultation. Cardiovascular: Regular heart rate. Abdomen: Soft and nontender. Extremities: Both legs are less swollen than they were yesterday, however, they still remain erythematous. LAB AND X-RAY: CBC today showed a white count of 8930, hemoglobin 10 and platelet count 121,000. Urine cultures negative. Blood cultures are pending. AST is 99. Creatinine is 1.4. GFR is 48. Chest x-ray shows improved pulmonary edema. ASSESSMENT AND PLAN: Patient has leg cellulitis. The plan is to continue leg elevation and the 2 antibiotics namely Ancef and doxycycline. COMORBIDITIES: He is elderly. He has extra fluid in his legs, i.e. edema. cc: Gurpreet Whitmore MD
[2016-10-10] MEDS ORDERED: PREDNISONE PO SCH (01:31)
[2016-10-10] MEDS: DUONEB (A & A) INH SCH ×4 (04:04→22:57)
[2016-10-10] MEDS: KEFZOL 2 GM/D5W 2 GM/50 ML IVPB IV SCH ×2 (06:20→16:38)
[2016-10-10] MEDS: NS 1,000 ML IV SCH (06:20)
[2016-10-10] MEDS: PRILOSEC PO SCH (06:21)
[2016-10-10 07:32] LABS: HEMATOCRIT 28.4 % (42.0-52.0); HEMOGLOBIN 9.1 g/dL (14.0-18.0); MCH 32.7 PG (27-31); MCV 102.2 FL (81-99); MPV 10.7 FL (7.4-10.4); RBC 2.78 XMIL (4.7-6.1)
[2016-10-10 07:47] LABS: AGAP 14; ALBUMIN 2.5 g/dL (3.5-5.0); ALKALINE PHOSPHATASE 98 U/L (32-122); BUN 19 mg/dL (8-22); CALCIUM 7.9 mg/dL (8.8-10.2); CHLORIDE 101 mmol/L (98-107); COSMO 284; DIRECT BILIRUBIN < 0.20 mg/dL (0.00-0.20); GOT 34 U/L (10-34); GPT 24 U/L (10-44); MAGNESIUM 1.7 mg/dL (1.5-2.7); POTASSIUM 3.3 mmol/L (3.5-5.1); SODIUM 139 mmol/L (136-145); TCO2 24 mmol/L (25-35); TOTAL BILIRUBIN 0.49 mg/dL (0.20-1.00); TOTAL PROTEIN 4.9 g/dL (6.3-8.3)
[2016-10-10] MEDS: PREDNISONE PO SCH (09:00)
[2016-10-10] MEDS: UROXATRAL PO SCH (09:00)
[2016-10-10] MEDS: LASIX PO SCH (09:00)
[2016-10-10] MEDS: HEPARIN SUBQ SCH ×2 (09:01→22:00)
[2016-10-10] MEDS: DOXYCYCLINE PO SCH ×2 (09:01→22:00)
[2016-10-10] MEDS: FOLIC ACID PO SCH (09:02)
--- NOTE | 2016-10-10 15:21 | PROGRESS NOTE ---
DATE: 10/10/2016 SUBJECTIVE: This patient states that he is feeling better. He is still complaining of lower extremity pain, mostly at the level of the left leg. He is not complaining of shortness of breath or chest pain. I restarted some of his home medications right now. I will stop the fluids. He is tolerating p.o. OBJECTIVE: Vital Signs: Temperature 98.5 degrees, pulse 58, respiratory rate 21, blood pressure 117/71, and oxygen saturation 95% on room air. HEENT: Head normocephalic. No trauma. PERRLA. Neck: Supple. No JVD. No masses. Central trachea. Chest: Decreased breath sounds bilaterally. Prolonged expiratory phase. Cardiovascular: RRR. No murmurs. Abdomen: Soft, nontender, nondistended. No hepatosplenomegaly. Extremities: Left lower extremity with deep redness circumferentially up to the knee. Right lower extremity with the same type of redness, but compared with the left leg, it does not look that bad. Pulses are diminished and the feet are warm. Neurologic: The patient is alert and oriented x3. No focal neurological deficits. He has increased sensation/pain at the level of the left lower extremity. LABORATORY: WBC. 5.6, hemoglobin 9.1, hematocrit 28.4, and platelets 106,000. Sodium 139, potassium 3.3, chloride 101, bicarbonate 24, BUN 19, creatinine 1.7, glucose 169, calcium 7.9, phosphorus 2.6, magnesium 1.7, albumin 2.5. ASSESSMENT AND PLAN: 1. Bilateral lower extremity cellulitis. Blood culture and urine culture have been negative so far. We will continue with antibiotics. The Infectious Disease Department is following this patient. 2. Acute on chronic systolic heart failure. He is not complaining of chest pain or shortness of breath at this moment. He is on furosemide at home, low dose, around 20 mg p.o. daily. I will continue with the same medication and I will restart his home medications now. 3. Acute on chronic renal failure, resolved. The creatinine is around his baseline. 4. Hypertension and hyperlipidemia, chronic and stable. Continue with home medication except RIVERA inhibitor for now. 5. Chronic obstructive pulmonary disease. Continue with breathing treatments and aggressive pulmonary toilet. He is not having an exacerbation at this moment. 6. Deep vein thrombosis prophylaxis with Lovenox. 7. Left leg pain. Probably, this is related to neuropathic pain. I will start this patient on a low dose of gabapentin and I will monitor. cc: Denny Dodge MD
[2016-10-10] MEDS: NORCO-7.5 PO PRN (16:35)
--- NOTE | 2016-10-10 20:29 | PROGRESS NOTE ---
DATE: 10/10/2016 PRESENT ILLNESS: The patient has cellulitis of the legs. MEDICATIONS: He is receiving IV cefazolin and p.o. doxycycline. PHYSICAL EXAMINATION: Vital Signs: Temperature is 98.4 degrees, pulse 74, respirations 14, blood pressure 121/66. General: This is a somewhat ill-appearing, elderly male. He is in no acute distress. Lungs: Clear to auscultation. Cardiovascular: Irregular heart rate. Abdomen: Soft and nontender. Extremities: Both legs are less swollen and erythematous. In fact, the legs now do not have any edema in them. LABORATORY STUDIES AND X-RAYS: Creatinine is 1.7. GFR is 38. Liver function studies are normal. Blood cultures are sterile. Urine is contaminated because it is growing multiple organisms. The patient's CBC shows a white count of 5640, hemoglobin 9.1, and platelet count 106,000. ASSESSMENT AND PLAN: Patient has leg cellulitis. He wants to go to a rehab facility. If he goes there or home, I think he can be switched to oral antibiotics, namely doxycycline 100 mg p.o. every 12 hours, and Keflex 500 mg p.o. every 8 hours for another 2 weeks. It will also be very important for the patient to elevate his legs as much as possible. I am available to see the patient in followup if he does not have his own private physician, and I could see him back in the office in 2 weeks if he is discharged from the hospital to home, but if he goes to rehabilitation, then it would probably be more like I would see him in the office in 3 weeks. COMORBIDITIES: He is elderly. He does have leg edema. cc: Gurpreet Whitmore MD
[2016-10-10] MEDS ORDERED: NEURONTIN PO SCH (21:00)
[2016-10-11] MEDS: DUONEB (A & A) INH SCH ×4 (03:57→20:59)
[2016-10-11] MEDS: KEFZOL 2 GM/D5W 2 GM/50 ML IVPB IV SCH ×2 (05:51→17:47)
[2016-10-11] MEDS: NORCO-7.5 PO PRN ×3 (06:21→21:43)
[2016-10-11] MEDS: PRILOSEC PO SCH (06:21)
[2016-10-11 07:05] LABS: HEMATOCRIT 26.4 % (42.0-52.0); HEMOGLOBIN 8.3 g/dL (14.0-18.0); MCHC 31.4 g/dL (33-37); MCV 101.9 FL (81-99); MPV 10.5 FL (7.4-10.4); RBC 2.59 XMIL (4.7-6.1)
[2016-10-11] MEDS: KLOR-CON PO SCH (08:28)
[2016-10-11] MEDS: FOLIC ACID PO SCH (08:28)
[2016-10-11] MEDS: DOXYCYCLINE PO SCH ×2 (08:28→21:43)
[2016-10-11] MEDS: PREDNISONE PO SCH (08:28)
[2016-10-11] MEDS: TOPROL XL PO SCH (08:28)
[2016-10-11] MEDS: LASIX PO SCH (08:28)
[2016-10-11] MEDS: ASPIRIN PO SCH (08:28)
[2016-10-11] MEDS: HEPARIN SUBQ SCH ×2 (08:28→21:42)
[2016-10-11 09:30] LABS: AGAP 15; ALBUMIN 2.8 g/dL (3.5-5.0); ALKALINE PHOSPHATASE 100 U/L (32-122); BUN 20 mg/dL (8-22); CALCIUM 8.6 mg/dL (8.8-10.2); CHLORIDE 106 mmol/L (98-107); COSMO 289; DIRECT BILIRUBIN < 0.20 mg/dL (0.00-0.20); GOT 30 U/L (10-34); GPT 12 U/L (10-44); POTASSIUM 3.9 mmol/L (3.5-5.1); SODIUM 144 mmol/L (136-145); TCO2 23 mmol/L (25-35); TOTAL BILIRUBIN 0.39 mg/dL (0.20-1.00)
[2016-10-11] MEDS: UROXATRAL PO SCH (11:32)
--- NOTE | 2016-10-11 13:23 | PROGRESS NOTE ---
DATE: 10/11/2016 SUBJECTIVE: This patient states that he is feeling much better today. He is still complaining of left lower extremity pain but compared with yesterday it is much better. Yesterday I started this patient on Neurontin and I will increase the dose today. Also I already talked to the renal social worker to see if we can get placement for this patient in a rehab center. OBJECTIVE: Vital Signs: Temperature 97.5 degrees, pulse 87, respiratory rate 16, blood pressure 141/60, O2 saturation 98 on 2 L of nasal cannula. HEENT: Head normocephalic. No trauma. PERRLA. Neck: Supple. No JVD. No masses. Central trachea. Chest: Decreased breath sounds bilaterally. Prolonged expiratory phase. Cardiovascular: RRR. No murmurs. Abdomen: Soft, nontender, nondistended. No hepatosplenomegaly. Extremities: Left lower extremity with deep redness circumferentially up to the knee. Right lower extremity is about the same but the redness is up to below the knee and not has bad as the left side. Pulses are diminished and the feet are warm. Neurological: The patient is alert and oriented x3. No focal motor deficits. He has increased sensation/pain at the level of the left lower extremity. LABORATORY: WBC 4.4, hemoglobin 8.3, hematocrit 26.4, platelet 110,000. Sodium 144, potassium 3.9, chloride 106, bicarbonate 23, BUN 20, creatinine 1.1, glucose 91, calcium 8.6, magnesium 2. ASSESSMENT AND PLAN: 1. Bilateral lower extremity cellulitis. Blood cultures and urine culture has been negative so far. Continue with antibiotics. Infectious Disease Department is following this patient. 2. Acute on chronic systolic heart failure. He has no complaint of shortness of breath or chest pain at this moment. Continue with the same treatment. 3. Peripheral neuropathy. I will increase the dose of Neurontin. 4. Acute on chronic renal failure. This is getting better. The creatinine is around his baseline. 5. Hypertension and hyperlipidemia, chronic and stable. Continue with medications. 6. COPD. Continue with breathing treatment and aggressive pulmonary toilet. Not in exacerbation at this moment. 7. Deep vein thrombosis prophylaxis with Lovenox. 8. Left leg pain likely secondary to neuropathic pain. I will increase the dose of gabapentin. I will monitor, it is much better. 9. Anemia. His hemoglobin has been dropping slowly. I have ordered an occult blood in the stool. Pending results. This patient has macrocytic anemia and he has been placed on folic acid already. 10. Physical deconditioning. I have ordered physical therapy evaluation for this patient. cc: Denny Dodge MD
[2016-10-11] MEDS: MEVACOR PO SCH (17:48)
[2016-10-11] MEDS: NEURONTIN PO SCH (21:43)
[2016-10-12] MEDS: DUONEB (A & A) INH SCH ×4 (03:52→22:16)
[2016-10-12] MEDS: KEFZOL 2 GM/D5W 2 GM/50 ML IVPB IV SCH ×2 (06:18→17:24)
[2016-10-12] MEDS: PRILOSEC PO SCH (06:18)
[2016-10-12] MEDS: NORCO-7.5 PO PRN ×2 (06:25→20:51)
[2016-10-12 07:11] LABS: MANUAL DIFF NEEDED? NO
[2016-10-12 07:27] LABS: BASO% 0.2 % (0.0-0.8); EOS# 0.08 X1000 (0.0-0.7); EOS% 1.5 % (0.0-10.0); HEMATOCRIT 30.2 % (42.0-52.0); HEMOGLOBIN 9.6 g/dL (14.0-18.0); IMM GRAN# 0.04 X1000 (0.0-0.04); IMM GRAN% 0.8 % (0.0-0.5); LYMPH# 0.63 X1000 (1.2-3.4); LYMPH% 11.9 % (20.5-51.1); MCH 31.4 PG (27-31); MCHC 31.8 g/dL (33-37); MCV 98.7 FL (81-99); MONO# 0.52 X1000 (0.11-0.59); MONO% 9.8 % (1.7-9.3); MPV 10.4 FL (7.4-10.4); NEUT% 75.8 % (42.2-75.2); PLT 164 X1000 (130-400); RBC 3.06 XMIL (4.7-6.1)
[2016-10-12 07:38] LABS: AGAP 13; BUN 22 mg/dL (8-22); CALCIUM 8.2 mg/dL (8.8-10.2); CHLORIDE 104 mmol/L (98-107); COSMO 283; POTASSIUM 3.5 mmol/L (3.5-5.1); SODIUM 140 mmol/L (136-145); TCO2 23 mmol/L (25-35)
[2016-10-12 07:46] LABS: ALBUMIN 2.7 g/dL (3.5-5.0); ALKALINE PHOSPHATASE 114 U/L (32-122); DIRECT BILIRUBIN < 0.20 mg/dL (0.00-0.20); GOT 27 U/L (10-34); GPT 8 U/L (10-44); TOTAL BILIRUBIN 0.35 mg/dL (0.20-1.00); TOTAL PROTEIN 5.3 g/dL (6.3-8.3)
[2016-10-12] MEDS: FOLIC ACID PO SCH (08:26)
[2016-10-12] MEDS: LASIX PO SCH (08:26)
[2016-10-12] MEDS: HEPARIN SUBQ SCH (08:26)
[2016-10-12] MEDS: NEURONTIN PO SCH ×2 (08:26→20:52)
[2016-10-12] MEDS: TOPROL XL PO SCH (08:26)
[2016-10-12] MEDS: PREDNISONE PO SCH (08:26)
[2016-10-12] MEDS: DOXYCYCLINE PO SCH ×2 (08:26→20:52)
[2016-10-12] MEDS: KLOR-CON PO SCH (08:27)
[2016-10-12] MEDS: ASPIRIN PO SCH (08:27)
[2016-10-12] MEDS: UROXATRAL PO SCH (08:27)
--- NOTE | 2016-10-12 16:18 | PROGRESS NOTE ---
DATE: 10/12/2016 PRESENT ILLNESS: The patient has leg cellulitis. It has been improving quite a bit. MEDICATIONS: The patient is on IV Ancef and p.o. doxycycline. PHYSICAL EXAMINATION: Vital Signs: Temperature is 98.2 degrees, pulse 100, respirations 17, blood pressure 105/50. Generally: This is a chronically ill-appearing, elderly male. He is in no acute distress. Lungs: Clear to auscultation. Cardiovascular: Regular heart rate. Abdomen: Soft and nontender. Extremities: The legs are less swollen and erythematous. LAB AND X-RAY: There is no new x-ray. The patient's CBC shows a white count of 5290, hemoglobin 9.6, and platelet count 164,000. Creatinine is 1, GFR is greater than 60. ASSESSMENT AND PLAN: My plan is to continue with his antibiotics and his leg elevation. I agree that it will patient will need to go to a rehab facility. When he does go to a rehab facility, I think his antibiotics can be changed to p.o. antibiotics, such as doxycycline 100 mg p.o. every 12 hours and Keflex 500 mg p.o. every 8 hours for another 2 weeks. COMORBIDITIES: Includes he is elderly and he does have leg edema. cc: Gurpreet Whitmore MD
--- NOTE | 2016-10-12 17:18 | PROGRESS NOTE ---
DATE: 10/12/2016 SUBJECTIVE: This patient states that he is feeling about the same compared with yesterday. He is still complaining of left lower extremity pain, but compared with admission is much better. I increased the dose of Neurontin yesterday and also I talked to the social secretary to see if we can get placement for this patient in our rehab center. I asked for occult blood in the stool that is positive. I have consulted Gastroenterology department for evaluation. OBJECTIVE: Vital Signs: Temperature 98.2, pulse 100, respiratory rate 17, blood pressure 105/50. Oxygen saturation 95% on room air. HEENT: Head normocephalic. No trauma. PERRLA. Neck: Supple. No JVD. No masses. Central trachea. Chest: Decreased breath sounds bilaterally,. Prolonged expiratory phase. Cardiovascular: RRR. No murmurs. Abdomen: Soft, nontender, nondistended. No hepatosplenomegaly. Extremities: Left lower extremity with deep redness circumferentially up to the knee. Right lower extremity is about the same compared with the left lower extremity, but the size of the redness is not that big. There is no pain. Pulses are diminished and the feet are warm. Neurological: The patient is alert and oriented x3. No focal neurological deficits. He has increased sensation/pain at the level of the left lower extremity, probably related with neuropathy. LABORATORY: WBC 5.2, hemoglobin 9.6, hematocrit 30.2, platelet 164. Sodium 140, potassium 3.5, chloride 104, bicarbonate 23, BUN 22, creatinine 1, glucose 95, calcium 8.2, albumin 2.7. ASSESSMENT AND PLAN: 1. Bilateral lower extremity cellulitis. Blood culture and urine culture has been negative so far. Continue with antibiotics. Infectious Disease department is following this patient. 2. Acute on chronic systolic heart failure. This is better, resolved. He is not complaining of shortness of breath or chest pain at this moment. Continue with the same management. 3. Peripheral neuropathy. I will increase again the dose of Neurontin. 4. Positive Hemoccult/gastrointestinal bleed. Gastroenterology department has been consulted. 5. Acute on chronic renal failure resolved. Creatinine is around this baseline. 6. Hypertension and hyperlipidemia this is chronic and stable. Continue with medications. 7. Chronic obstructive pulmonary disease. Continue with breathing treatment and aggressive pulmonary toilet. Not in exacerbation at this time. 8. Deep vein thrombosis prophylaxis. He used to be with Lovenox, but I will stop it because this patient has a positive blood in the stool. 9. Left leg pain likely secondary to neuropathic pain. I will increase the dose of gabapentin. I will monitor. He feels better. 10. Anemia. Hemoglobin and hematocrit has been dropping slowly, but today went up a little bit. Will monitor. 11. Physical deconditioning. Physical therapy is on board. cc: Denny Dodge MD
[2016-10-12] MEDS: MEVACOR PO SCH (17:24)
--- NOTE | 2016-10-12 22:40 | CONSULTATION ---
DATE OF CONSULTATION: 10/12/2016 REFERRING PHYSICIAN: Denny Dodge MD. INDICATION FOR CONSULTATION: 1. Heme-positive stools. 2. Declining hemoglobin. 3. Iron deficiency anemia. HISTORY OF PRESENT ILLNESS: The patient is a very pleasant, 86-year-old white male who was admitted on 10/08/2016 with leg pain. He was subsequently found to have bilateral lower extremity cellulitis. He also has multiple medical concerns including acute on chronic systolic heart failure, acute on chronic renal failure, hypertension, hyperlipidemia, and COPD. Because of his declining hemoglobin throughout this hospitalization, his stool was checked for blood and was found to be heme positive. From a GI perspective, the patient states that he was previously followed by his primary care doctor and by GI . He has had multiple recurrent food impactions and esophageal dilations. He has also had regular colonoscopies until 6 years ago when he became sick from other medical concerns. He reports a history of hemorrhoids but states that he has never had colon polyps, colon cancer, or gastric ulcers. He does note some mild gastritis on previous upper endoscopy. He has had a lower GI bleed from hemorrhoidal bleeding but denies other findings. His last endoscopy was greater than 6 years ago. He states that if he has blood in his stool, he would like to be evaluated before he goes to rehabilitation as he has no transportation since he relocated to [place] to live with his children. PAST MEDICAL HISTORY: 1. Coronary artery disease with a history of a non-STEMI in August 2016. 2. Systolic heart failure with an ejection fraction of 35%. 3. Bladder cancer. 4. Hypertension. 5. Hyperlipidemia. 6. Peripheral vascular disease. 7. Peptic ulcer disease. 8. COPD. 9. Hyperlipidemia. PAST SURGICAL HISTORY: 1. CABG. 2. Cholecystectomy. 3. Appendectomy. SOCIAL HISTORY: The patient is a former smoker. He denies drug use. He consumes an occasional beer. FAMILY HISTORY: Negative for colon cancer. REVIEW OF SYSTEMS: Remarkable for occasional intermittent epigastric pain that is associated with food impactions. He reports his last food impaction was less than a month ago. MEDICATION ALLERGIES: Morphine. HOME MEDICATIONS: 1. Ramipril. 2. Klor-Con. 3. Tramadol. 4. Prednisone. 5. Ditropan. 6. Toprol-XL. 7. Lovastatin. 8. Lasix. 9. Vitamin D 1000. 10. Symbicort. 11. Aspirin. 12. Alfuzosin. PHYSICAL EXAMINATION: General: He is an elderly white male in no acute distress. Vital Signs: Blood pressure is 96/61, pulse of 80, respirations 17, temperature of 98.2 degrees. HEENT: Negative for jaundice. His oropharyngeal mucosal membranes are unremarkable. Pulmonary Examination: Lungs are clear to auscultation anteriorly. There are decreased breath sounds in the bases bilaterally. Cardiovascular Examination: He has regular rate and rhythm with no murmurs, gallops, rubs. Abdominal Examination: Reveals normoactive bowel sounds. The abdomen is soft with mild epigastric tenderness but no rebound or guarding. Extremities: Bilaterally are positive for cellulitis and stasis dermatitis. OBJECTIVE DATA: Reveals hemoglobin of 9.6, hematocrit of 30.2 and white count of 5.29. He has 164,000 platelets. Sodium is 140, potassium 3.5, chloride 104, CO2 of 23, BUN 22, creatinine 1.0 with a glucose of 95. Calcium is 8.2, magnesium 2.0, total bilirubin 0.35, direct bilirubin less than 0.20, AST 27, ALT 8, alkaline phosphatase 114, total protein 5.3 and albumin 2.7. IMPRESSION: 1. Heme-positive stools. 2. Progressive anemia. 3. History of food impaction. 4. History of hemorrhoidal disease. RECOMMENDATION: 1. I will plan to perform an EGD and colonoscopy on Saturday morning at 7:30 to assess for the cause of his symptoms. 2. Patient has no question about consent. 3. Please avoid all anticoagulation over the weekend. Consider alternative means for DVT prophylaxis. 4. Monitor serial hemoglobins and hematocrit over the next couple of days and transfuse as indicated. 5. Additional recommendations to follow based on his clinical course and his endoscopic findings. cc: MD Benja Spencer MD Omar J. Sosa-Chirinos, MD
[2016-10-13] MEDS: DUONEB (A & A) INH SCH ×4 (03:52→22:30)
[2016-10-13] MEDS: KEFZOL 2 GM/D5W 2 GM/50 ML IVPB IV SCH ×2 (05:11→16:39)
[2016-10-13] MEDS: NORCO-7.5 PO PRN ×2 (05:13→16:39)
[2016-10-13] MEDS: PRILOSEC PO SCH (06:02)
[2016-10-13] MEDS: KLOR-CON PO SCH (08:53)
[2016-10-13] MEDS: UROXATRAL PO SCH (08:53)
[2016-10-13] MEDS: DOXYCYCLINE PO SCH ×2 (08:53→19:59)
[2016-10-13] MEDS: NEURONTIN PO SCH ×2 (08:53→19:59)
[2016-10-13] MEDS: TOPROL XL PO SCH (08:54)
[2016-10-13] MEDS: ASPIRIN PO SCH (08:54)
[2016-10-13] MEDS: PREDNISONE PO SCH (08:54)
[2016-10-13] MEDS: FOLIC ACID PO SCH (08:54)
[2016-10-13] MEDS: LASIX PO SCH (08:54)
--- NOTE | 2016-10-13 13:25 | PROGRESS NOTE ---
DATE: 10/13/2016 SUBJECTIVE: This patient states that he is feeling better. He is still complaining of left lower extremity pain, but compared with admission, he feels better. I do believe that this is related with neuropathic pain. I have started this patient on Neurontin. He has a positive Hemoccult in his stools. Gastroenterology evaluated this patient, and he will he will go for an upper endoscopy and colonoscopy next Saturday. OBJECTIVE: Vital Signs: Temperature 97.9 degrees, pulse 86, respiratory rate 20, blood pressure 112/62, oxygen saturation 98 on room air. HEENT: Head normocephalic. No trauma. PERRLA. Neck: Supple. No JVD. No masses. Central trachea. Chest: Decreased breath sounds bilaterally. Prolonged expiatory phase. Scattered rales. Cardiovascular: RRR. No murmurs. Abdomen: Soft, nontender, nondistended. No hepatosplenomegaly. Extremities: Left lower extremity with deep redness circumferentially up to the knee, and even above the knee. Right lower extremity is about the same, but compared with the left lower extremity, the size of the redness is not that big. There is no pain on the right side. Pulses are diminished, but the feet are warm. Neurological: The patient is alert and oriented x3. No focal neurological deficits. He has increased sensation/pain at the level of the left lower extremity, probably with neuropathy. LABORATORY STUDIES: No lab work today. ASSESSMENT AND PLAN: 1. Bilateral lower extremity cellulitis. Blood culture and urine culture has been negative so far. Continue with antibiotics. Infectious Disease Department is following this patient. 2. Acute on chronic systolic heart failure. Resolved. Continue with the same management. 3. Peripheral neuropathy. Continue with Neurontin. 4. Gastrointestinal bleed. Gastroenterology Department evaluated this patient. They will do an upper endoscopy and colonoscopy next Saturday. 5. Hypertension. Stable. Continue to monitor. 6. Hyperlipidemia. Continue with the same management. 7. History of chronic obstructive pulmonary disease. Continue with breathing treatment and aggressive pulmonary toilet. Not in exacerbation at this moment. 8. Deep vein thrombosis prophylaxis. I stopped his Lovenox because this patient has a positive blood in the stool, and he will get an upper endoscopy and colonoscopy done next Saturday. 9. Left leg pain, likely secondary to neuropathic pain. Continue with gabapentin, since he is getting better. 10. Anemia. Will monitor. 11. Physical deconditioning. Physical Therapy is on board. Overall, this patient is doing better. Dr. Whitmore from Infectious Disease Department already recommended some medications if this patient is going to be discharged. We can call him as needed. He has a positive Hemoccult, and Gastroenterology Department evaluated this patient. He will have an upper endoscopy and colonoscopy done next Saturday. Also, this patient is weak, and he cannot walk by himself. survey worker is on board. We are trying to get also a rehab center for this patient. cc: Denny Dodge MD
[2016-10-13] MEDS: MEVACOR PO SCH (16:39)
--- NOTE | 2016-10-13 17:35 | PROGRESS NOTE ---
DATE: 10/13/2016 SUBJECTIVE: The patient states that he feels better. He continues to have mild abdominal pain. He is heme-positive with a progressive anemia. He awaits upper endoscopy and colonoscopy on Saturday morning at 7 a.m. otherwise, he denies complaints. His abdomen remained soft, nontender, nondistended. OBJECTIVE DATA: Remarkable for hemoglobin of 9.6 with hematocrit of 30.2 and white count of 5.29. Has 164,000 platelets. Sodium is 140, potassium 3.5, chloride 104, CO2 of 23, BUN 22, creatinine 1.0 with a glucose 95. Calcium is 8.2, magnesium 2.0, total bilirubin 0.35, AST 27, ALT 8, alkaline phosphatase 114, total protein 3.5 and albumin 2.7. RECOMMENDATION: 1. Regarding his anemia, will plan to perform EGD and colonoscopy on Saturday. 2. His hemoglobin has been stable and therefore I would continue to monitor. 3. Continue Prilosec 40 mg 1 p.o. daily. 4. Continue Prilosec 40 mg per day. 5. Additional recommendations to follow based on the results of his endoscopic findings. cc: Denny Dodge MD
[2016-10-13] MEDS ORDERED: DULCOLAX PO ONE (20:00)
[2016-10-14] MEDS: DUONEB (A & A) INH SCH ×4 (04:05→22:47)
[2016-10-14] MEDS: KEFZOL 2 GM/D5W 2 GM/50 ML IVPB IV SCH ×3 (04:14→18:55)
[2016-10-14] MEDS: PRILOSEC PO SCH (06:18)
[2016-10-14] MEDS: NORCO-7.5 PO PRN ×2 (07:25→16:00)
[2016-10-14 08:11] LABS: MANUAL DIFF NEEDED? NO
[2016-10-14 08:30] LABS: BASO% 0.4 % (0.0-0.8); EOS# 0.09 X1000 (0.0-0.7); EOS% 1.2 % (0.0-10.0); HEMATOCRIT 31.1 % (42.0-52.0); IMM GRAN# 0.08 X1000 (0.0-0.04); LYMPH# 0.89 X1000 (1.2-3.4); LYMPH% 11.5 % (20.5-51.1); MCH 32.1 PG (27-31); MCHC 32.2 g/dL (33-37); MCV 99.7 FL (81-99); MONO# 0.75 X1000 (0.11-0.59); MONO% 9.7 % (1.7-9.3); MPV 10.4 FL (7.4-10.4); NEUT% 76.2 % (42.2-75.2); PLT 203 X1000 (130-400); RBC 3.12 XMIL (4.7-6.1)
[2016-10-14 08:40] LABS: CALCIUM 8.9 mg/dL (8.8-10.2); POTASSIUM 4.4 mmol/L (3.5-5.1)
[2016-10-14] MEDS: TOPROL XL PO SCH (08:46)
[2016-10-14] MEDS: PREDNISONE PO SCH (08:46)
[2016-10-14] MEDS: FOLIC ACID PO SCH (08:46)
[2016-10-14] MEDS: LASIX PO SCH (08:47)
[2016-10-14] MEDS: DULCOLAX PO ONE ×2 (08:47→15:44)
[2016-10-14] MEDS: ASPIRIN PO SCH (08:47)
[2016-10-14] MEDS: DOXYCYCLINE PO SCH ×2 (08:47→20:32)
[2016-10-14] MEDS: NEURONTIN PO SCH ×2 (08:47→20:31)
[2016-10-14] MEDS: KLOR-CON PO SCH (08:47)
[2016-10-14] MEDS: UROXATRAL PO SCH (08:47)
[2016-10-14] MEDS: ULTRAM PO PRN (13:45)
--- NOTE | 2016-10-14 13:53 | PROGRESS NOTE ---
DATE: 10/14/2016 SUBJECTIVE: Mr. Jang was admitted on 10/08/2016, left leg pain is what he presented with. He is an 86-year-old with a history of coronary artery disease status post myocardial infarction, systolic heart failure with known ejection fraction of 35%, hypertension. He presented to the emergency room with a 2-week history of left lower extremity edema, pain, and redness. His initial symptoms started about 2 weeks ago when he reported generalized edema likely secondary to congestive heart failure. He took his Lasix as directed and had some diuresis. Subsequently decreased swelling except for his left leg. Since that time he has had increasing redness and warmth to touch, and pain to he left lower extremity and presented to the emergency room. PAST MEDICAL HISTORY: 1. Coronary artery disease status post non-STEMI last month. 2. Systolic heart failure. Ejection fraction 35%. 3. History of bladder cancer. 4. Hypertension. 5. Hyperlipidemia. 6. Peripheral vascular disease. 7. Peptic ulcer disease. 8. COPD. 9. Hyperlipidemia. PAST SURGICAL HISTORY: He has had CABG, cholecystectomy, and appendectomy. So, he was admitted with bilateral lower extremity cellulitis and left leg edema, acute on chronic systolic heart failure, acute on chronic renal failure. Today he feels much better. He says his leg is much better. His understanding is that he is going to undergo an EGD and colonoscopy. He thinks he is having this today. OBJECTIVE: Vital signs: Temp 98.8 degrees, pulse 100, respirations 18, blood pressure 133/73. HEENT: Pupils are equal, round. Lungs: Clear in all lung bolden. Cardiovascular: Regular rhythm and rate without murmur or S3. Abdomen: Soft. Skin: Warm and dry. LAB: Reviewed. White count 7,770, hematocrit 31, platelet count 203,000. Sodium 144, potassium 4.4, chloride 108, bicarb 25, BUN 23, creatinine 1.2. ASSESSMENT AND PLAN: 1. Plan is to do an EGD and colonoscopy on Saturday. 2. Hemoglobin and hematocrit are stable. Note, we are going to continue with his proton pump inhibitors. 3. Peripheral neuropathy, aware. 4. Suspect gastrointestinal bleed. 5. Hypertension. 6. Left leg with some neuropathic pain. Swelling has improved. Will look at orders. Continue present medication. cc: Laz Tomas MD
[2016-10-14] MEDS ORDERED: DULCOLAX PO ONE (14:00)
[2016-10-14] MEDS ORDERED: MIRALAX PO ONE (15:00)
[2016-10-14] MEDS: MEVACOR PO SCH ×2 (15:47→18:55)
[2016-10-15] MEDS: NORCO-7.5 PO PRN ×2 (00:29→16:05)
[2016-10-15] MEDS: DUONEB (A & A) INH SCH ×3 (03:27→23:35)
[2016-10-15] MEDS: KEFZOL 2 GM/D5W 2 GM/50 ML IVPB IV SCH (04:29)
[2016-10-15] MEDS: ULTRAM PO PRN (04:32)
[2016-10-15] MEDS: PRILOSEC PO SCH (06:04)
[2016-10-15] MEDS ORDERED: DIPRIVAN 1% ONE ×2 (07:01→08:49)
[2016-10-15] MEDS ORDERED: MYLICON DROPS ONE (07:12)
[2016-10-15] MEDS ORDERED: XYLOCAINE-MPF 2% ONE (07:55)
[2016-10-15] MEDS ORDERED: ULTRAM PO PRN (11:07)
[2016-10-15] MEDS ORDERED: DUONEB (A & A) INH PRN (11:07)
[2016-10-15] MEDS ORDERED: DOXYCYCLINE PO SCH (11:15)
[2016-10-15] MEDS ORDERED: VITAMIN D PO SCH (12:30)
[2016-10-15] MEDS: KLOR-CON PO SCH (12:33)
[2016-10-15] MEDS: UROXATRAL PO SCH (12:33)
[2016-10-15] MEDS: FOLIC ACID PO SCH (12:33)
[2016-10-15] MEDS: ASPIRIN PO SCH (12:34)
[2016-10-15] MEDS: PREDNISONE PO SCH (12:34)
[2016-10-15] MEDS: TOPROL XL PO SCH (12:34)
[2016-10-15] MEDS: LASIX PO SCH (12:34)
[2016-10-15] MEDS: NEURONTIN PO SCH ×2 (12:34→21:40)
[2016-10-15] MEDS: KEFLEX PO SCH (16:06)
[2016-10-15] MEDS ORDERED: KEFZOL 2 GM/D5W 2 GM/50 ML IVPB IV SCH (16:29)
[2016-10-15] MEDS ORDERED: MEVACOR PO SCH (17:00)
--- NOTE | 2016-10-15 19:31 | PROGRESS NOTE ---
DATE: 10/15/2016 PRESENT ILLNESS: The patient has leg cellulitis which has improved quite a bit. MEDICATIONS: Patient currently is on IV Ancef and p.o. doxycycline. PHYSICAL EXAMINATION: Vital Signs: Temperature is 98 degrees, pulse 90, respirations 16, blood pressure 140/70. Generally: This is a chronically ill-appearing, elderly male. He is in no acute distress. Cardiovascular: His heart rate today seemed to be irregular. Lungs: Clear to auscultation. Abdomen: Soft and nontender. Extremities: Both legs continue to be less swollen and erythematous. LAB AND X-RAY: There is no new x-ray. The CBC for today shows a white count of 7770, hemoglobin 10 and platelet count 203,000. Creatinine is 1.2. The GFR is 58. ASSESSMENT AND PLAN: The patient has cellulitis. It is much improved. I am going to discontinue doxycycline and IV Ancef and put the patient just on p.o. Keflex. I would suggest continuing Keflex for another week. Initially I put for another 2 weeks but his legs have improved quite a bit and I think another week would be all he will need. Also I think given how much his legs have improved we can stop the doxycycline as well. COMORBIDITIES: He is elderly and he has leg edema. From my point of view, he could be discharged from the hospital most likely to a rehab facility so that he can get strength enough so he can walk and take care of himself. cc: Gurpreet Whitmore MD
[2016-10-16] MEDS: KEFLEX PO SCH ×2 (00:11→08:34)
[2016-10-16] MEDS: NORCO-7.5 PO PRN (00:19)
--- NOTE | 2016-10-16 03:00 | PROGRESS NOTE ---
DATE: 10/15/2016 SUBJECTIVE: He is sitting up eating supper, very hungry. States he feels a lot better. He is asking about when he can go home. He remains afebrile. PHYSICAL EXAMINATION: Vital Signs: Temperature 97.4 degrees, pulse 90, respirations 18, blood pressure 131/59. CVP less than 6 cm. Lungs: Clear in all lung bolden. Cardiovascular Examination: Regular rhythm and rate without murmur or S3. Abdomen: Soft. Positive bowel sounds. Extremities: No edema. Is and Os: Urine output 700 mL. LAB: Reviewed from yesterday. Electrolytes look good. Creatinine is 1.29. Hematocrit is stable at 31. EGD done and colonoscopy done per Dr. Hough and unremarkable so hopefully we can get him set to go to rehab on Saturday. ASSESSMENT AND PLAN: 1. EGD and colonoscopy done, unremarkable. 2. Hemoglobin and hematocrit, stable. 3. Peripheral neuropathy, aware. 4. Suspect gastrointestinal bleed but gastrointestinal workup unremarkable. 5. History of hypertension. 6. Left leg with neuropathic pain and his cellulitis seems to have resolved. 7. We will set our sights on getting him to rehab for general weakness and deconditioning. His volume and fluid status look good right now. cc: Laz Tomas MD
[2016-10-16] MEDS: DUONEB (A & A) INH SCH ×2 (03:31→09:48)
[2016-10-16] MEDS ORDERED: PRILOSEC PO SCH (07:00)
[2016-10-16 08:28] VITALS: BP 111/66
[2016-10-16] MEDS: NEURONTIN PO SCH (08:34)
[2016-10-16] MEDS: ASPIRIN PO SCH (08:35)
[2016-10-16] MEDS: LASIX PO SCH (08:35)
[2016-10-16] MEDS: TOPROL XL PO SCH (08:35)
[2016-10-16] MEDS: FOLIC ACID PO SCH (08:35)
[2016-10-16] MEDS: KLOR-CON PO SCH (08:35)
[2016-10-16] MEDS: PREDNISONE PO SCH (08:35)
[2016-10-16] MEDS: UROXATRAL PO SCH (08:35)
--- NOTE | 2016-10-16 10:03 | DISCHARGE SUMMARY ---
ADMISSION DATE: 10/08/2016 DISCHARGE DATE: 10/16/2016 HISTORY OF PRESENT ILLNESS: He presented with left leg pain. Mr. Jang is an 86-year-old with a history of coronary artery disease, status post myocardial infarction, systolic heart failure, known ejection fraction of 35%, hypertension. He presented to the ER with a 2 week history of left lower extremity edema, pain, and redness. His initial symptoms started, as I stated, 2 weeks ago. Generalized edema, likely secondary to his congestive heart failure. He took some Lasix and had some diuresis, some decreased swelling. Since that time, he had increased redness, warmth to touch, pain of the left lower extremity. He denied fever or chills. He did report some chest pain on exertion, chronic shortness of breath, and orthopnea. He came to the emergency room with evaluation with venous Doppler and it did not show any deep venous thrombosis. He did have a leukocytosis. Blood cultures were obtained. Broad-spectrum antibiotics initiated for cellulitis. He had an elevated D-dimer so he has had a CTA of the chest which was negative for PE. It did show COPD changes. REVIEW OF PAST MEDICAL HISTORY: 1. Coronary artery disease, status post non-STEMI last month. 2. Systolic heart failure. Ejection fraction of 35%. 3. History of bladder cancer. 4. Hypertension. 5. Hyperlipidemia. 6. Peripheral vascular disease. 7. Peptic ulcer disease. 8. COPD. 9. Hyperlipidemia. SURGICAL HISTORY: He has had a CABG, cholecystectomy, and appendectomy. HOSPITAL COURSE: The patient was admitted with cellulitis. He had an extremity arterial study done on 10/08/2016. In view of thigh pressures, the patient was suspected to have compromised flow from the groin down. It may be in the iliacs or the superficial femorals bilaterally. He showed steady improvement with decreased swelling, decreased redness. Dr. Whitmore was following. Dr. Hough was consulted. She was consulted because of heme positive stool, declining hemoglobin, and iron deficiency anemia. He has a history of food impaction. He had a history of hemorrhoidal disease in the past. EGD and colonoscopy were done on Saturday and unremarkable. The patient felt much better. [place] like he could go to rehab on 10/16/2016. Legs had healed dramatically, decreased swelling. DISCHARGE MEDICATIONS: He will be on DuoNeb, Uroxatral 10 mg a day, aspirin 81 mg a day. I think Dr. Whitmore is going to keep him on Keflex p.o. He has Neurontin 200 mg b.i.d., Lasix 20 mg a day, folic acid 1 mg a day, vitamin D 50,000 units daily, Ultram 50 mg q.6 hours p.r.n., prednisone 5 mg a day, Klor-Con 20 mEq daily, Toprol-XL 25 mg a day, Prilosec 40 mg daily. cc: Laz Tomas MD
--- NOTE | 2016-10-16 12:35 | OPERATIVE NOTE ---
PROCEDURE DATE: 10/15/2016 REFERRING PHYSICIAN: Denny Dodge MD. PRIMARY CARE PROVIDER: Benja Beckham MD. INDICATIONS FOR PROCEDURE: 1. Progressive anemia. 2. Heme-positive stools. 3. History of hemorrhoids. PROCEDURE PERFORMED: Esophagogastroduodenoscopy with polypectomy. CONSENT: Informed consent was obtained from the patient prior to the procedure. The risks, benefits, and alternatives were discussed. MEDICATIONS: The patient received monitored anesthesia care. PERFORMING PHYSICIAN: Rosalva Hough MD. ASSISTANTS: 1. [facility] 2. Angie Milian RN. 3. Lin Barillas CRNA. 4. Ole Allred MD (Anesthesia). COMPLICATIONS: There were no complications. ESTIMATED BLOOD LOSS: 1-2 mL. SPECIMENS REMOVED: 1. In jar #2, there were ascending colon polyps x3. 2. In jar #3, there was a large flat polyp from the transverse colon. 3. In jar #4, there were sessile colon polyps from 55 cm. CECAL INTUBATION TIME: Seven minutes. WITHDRAWAL TIME: Thirty-three minutes. PREPARATION QUALITY: Poor. FINDINGS: After the EGD was performed, the patient was repositioned. The pediatric colonoscope was inserted to the terminal ileum. The terminal ileum, ileocecal valve, and appendiceal orifice appeared normal. In the cecum, there were 3 ascending colon polyps that ranged in size from 5-12 mm. They were removed by snare cautery. Upon withdrawal, the ascending colon appeared normal except for diverticulosis. In the transverse colon, there was a 10-12 mm flat polyp that was removed by snare cautery. Upon further withdrawal, there was a 6-8 mm polyp at 55 cm that was removed by snare cautery. Throughout the colon, there was extensive diverticulosis. There were multiple nonbleeding AVMs, particularly in the sigmoid colon. In the upper rectum, there were grade 1-2 internal hemorrhoids. On retroflexed view, there were medium external hemorrhoids. After the exam was complete, the lumen was decompressed and the scope was removed without incident. IMPRESSIONS: 1. Multiple sessile colon polyps and 1 flat polyp. 2. Diverticulosis. 3. Nonbleeding arteriovenous malformations. 4. Internal hemorrhoids, grade 1-2. 5. Medium external hemorrhoids. RECOMMENDATIONS: 1. Await biopsy results. 2. Because of the poor bowel prep, will repeat his colonoscopy in 9-12 months with a 2-day bowel prep. 3. I will schedule an outpatient capsule endoscopy, as no source of bleeding has been found. 4. We will have the patient return to clinic in 4 weeks to assess interval progress. cc: MD Benja Spencer MD Omar J. Sosa-Chirinos, MD
[2016-10-16] MEDS ORDERED: HEPARIN ONE (12:50)
--- NOTE | 2016-10-16 12:52 | OPERATIVE NOTE ---
PROCEDURE DATE: 10/15/2016 REFERRING PHYSICIAN: Denny Blanco MD. PRIMARY CARE PROVIDER: Benja Beckham MD. INDICATION FOR PROCEDURE: 1. Progressive anemia. 2. Heme-positive stools. 3. History of food impaction in the past although he denies this dysphagia at the present time. PROCEDURE PERFORMED: Esophagogastroduodenoscopy with biopsy. CONSENT: Informed consent was obtained from the patient prior to the procedure. The risks, benefits, and alternatives were discussed. MEDICATION: The patient received monitored anesthesia care. PERFORMING PHYSICIAN: Rosalva Hough MD. ASSISTANTS: 1. [facility] 2. Angie , RN. 3. Milly Barillas CRNA. 4. Ole Allred MD (anesthesia). COMPLICATIONS: There were no complications. ESTIMATED BLOOD LOSS: Less than 1 mL. SPECIMENS REMOVED: Distal esophageal biopsy. FINDINGS: After sedation was achieved, the upper endoscope was inserted to the 2nd portion of the duodenum. The hypopharynx appeared normal. The tubular esophagus was normal to 39 cm. From 39- 42 cm, there were 2 tongues of salmon-colored mucosa in the distal esophagus that were biopsied. There was a Schatzki's ring that was nonobstructive at the GE junction which was measured at 42 cm. There was a hiatal hernia that spanned from 42-46 cm. In the gastric lumen, there was mild gastritis in the antrum, fundus, and body. The retroflexed view was otherwise unremarkable. The pylorus was patent with no evidence of obstruction. There was mild duodenitis in the bulb. There was a small duodenal diverticulum in the 2nd portion of the duodenum. The third portion of the duodenum appeared normal. After the exam was complete, lumen was decompressed. The scope was then retracted into the distal esophagus where biopsies were taken. After hemostasis was achieved, the scope was withdrawn without complication. IMPRESSION: 1. 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 2. Nonobstructive Schatzki's ring. 3. Hiatal hernia. 4. Mild gastritis. 5. Mild duodenitis. 6. Duodenal diverticulum. RECOMMENDATION: 1. Await biopsy results. 2. Continue omeprazole 40 mg daily. 3. We will proceed with a colonoscopy as previously scheduled. 4. Additional recommendations to follow. cc: MD Denny Spencer MD Alan Walker, MD
== END 2016-10-16 13:51 ==
LOC: ED 05:36 → 3N 08:54 → SUATTDRO 08:54
PROVIDERS: ATTEND Emergency Medicine

== ENCOUNTER 2016-11-05 19:00 | Inpatient (IN) ==
--- NOTE | 2016-11-05 19:46 | Diag Imaging Result Doc PS360 ---
EXAM: CHEST-PORTABLE HISTORY: SOB TECHNIQUE: AP portable erect chest at 1930 COMMENT: There is pulmonary edema which was not present on 10/09/2016. IMPRESSION: Pulmonary edema and/or pneumonia. Electronically signed by Roberto Miranda 11/05/2016 7:44 PM
[2016-11-05] MEDS ORDERED: QUELICIN ONE (19:55)
[2016-11-05 20:01] LABS: INR 1.22; PTT 29.2 Seconds (22.0-36.0)
[2016-11-05 20:03] LABS: BASO% 0.1 % (0.0-0.8); EOS# 0.07 X1000 (0.0-0.7); EOS% 0.5 % (0.0-10.0); HEMATOCRIT 30.6 % (42.0-52.0); HEMOGLOBIN 9.6 g/dL (14.0-18.0); IMM GRAN# 0.08 X1000 (0.0-0.04); IMM GRAN% 0.6 % (0.0-0.5); LYMPH# 0.87 X1000 (1.2-3.4); LYMPH% 6.2 % (20.5-51.1); MANUAL DIFF NEEDED? NO; MCH 29.6 PG (27-31); MCHC 31.4 g/dL (33-37); MCV 94.4 FL (81-99); MONO% 7.1 % (1.7-9.3); NEUT% 85.5 % (42.2-75.2); PLT 370 X1000 (130-400); RBC 3.24 XMIL (4.7-6.1)
[2016-11-05 20:10] LABS: ALBUMIN 3.2 g/dL (3.5-5.0); CALCIUM 8.5 mg/dL (8.8-10.2); MAGNESIUM 1.9 mg/dL (1.5-2.7); POTASSIUM 4.4 mmol/L (3.5-5.1); TOTAL BILIRUBIN 0.45 mg/dL (0.20-1.00); TOTAL PROTEIN 5.7 g/dL (6.3-8.3)
[2016-11-05] MEDS ORDERED: LASIX IV ONE (20:36)
--- NOTE | 2016-11-05 21:02 | PROVIDER DOCUMENTATION ---
This chart was entered by Demetria Russell Scribe, acting as scribe for Raj August MD. HPI-Respiratory General - General Stated Complaint: sob Time Seen by Provider: 11/05/16 19:01 Source: patient Allergies/Adverse Reactions: Patient Allergies Allergy/AdvReac Type Severity Reaction Status Date / Time morphine Allergy SHORTNESS Verified 09/28/16 17:29 OF BREATH Home Medications: Home Medication List Medication Instructions Recorded Confirmed Last Taken Type Aspirin 1 tab PO DAILY 08/11/16 10/08/16 09/28/16 History Budesonide/Formoterol Inhaler 1 - 2 puff INH PRN PRN 08/11/16 10/08/16 09/28/16 History [Symbicort 160/4.5 Microgm Inhaler] Lovastatin 2 tab PO DAILY 08/11/16 10/08/16 09/28/16 History Oxybutynin [Ditropan] 1 tab PO BID 08/11/16 10/08/16 09/28/16 History Cholecalciferol (Vit D3) [Vitamin 1,000 unit PO DAILY #60 tablet 08/31/1609/28/16 Rx D3] Furosemide [Lasix] 20 mg PO DAILY #60 tablet 08/31/16 10/08/16 09/28/16 Rx Potassium Chloride [Klor-Con M20] 20 meq PO DAILY 10/08/16 10/08/16 Unknown History Albuterol 2.5MG/Ipratrop 0.5MG 3 ml INH Q2H PRN PRN #0 neb 10/16/16 Unknown Rx [Duoneb (A & A)] Albuterol 2.5MG/Ipratrop 0.5MG 3 ml INH RTQ6H neb 10/16/16 Unknown Rx [Duoneb (A & A)] Alfuzosin E.r. [Uroxatral] 10 mg PO DAILY tablet 10/16/16 Unknown Rx CephALEXIN [Keflex] 500 mg PO Q8H #21 capsule 10/16/16 Unknown Rx Ergocalciferol (Vitamin D2) 50,000 unit PO Q7D capsule 10/16/16 Unknown Rx [Vitamin D] Folic Acid 1 mg PO DAILY tablet 10/16/16 Unknown Rx Gabapentin [Neurontin] 200 mg PO BID capsule 10/16/16 Unknown Rx Metoprolol Succinate E.r. [Toprol 25 mg PO DAILY tablet 10/16/16 Unknown Rx Xl] Omeprazole [Prilosec] 40 mg PO DAILY@0700 capsule 10/16/16 Unknown Rx Prednisone 5 mg PO DAILY tablet 10/16/16 Unknown Rx Tramadol [Ultram] 50 mg PO Q6H PRN PRN #0 tablet 10/16/16 Unknown Rx - History of Present Illness-Resp Nature of Presenting Problem: 86 Y/O M presents to ED with SOB. Pt states that he had SOB that began today. Denies fever and headache. Pt states that he sees Dr. Mcclure. Pt states he has a hx of chest pain and this time states pain lasted for less than 5 minutes. Pt states he had a racing heart during that occurrence. Pt was a poor historian to recent details Quality of Pain: reports: none Severity in ED: reports: moderate Onset/Duration: reports: this evening Timing: reports: still present, improving Cough Quality/Degree: reports: mild Episode Frequency: frequent episodes Modifying Factors: improves with: nothing Associated Symptoms: reports: chest pain/soreness, heart racing, shortness of breath. denies: dizziness, earache, facial pain, short of breath, sore throat, sweaty, wheezing Similar Symptoms Previously?: Yes Recently seen or treated by another doctor?: Yes Review of Systems - Adult - REVIEW OF SYSTEMS - ADULT Constitutional: denies: chills, fever Eyes: reports: no symptoms reported Ears, Nose, Mouth & Throat: reports: no symptoms reported Cardiovascular: reports: chest pain Respiratory: reports: shortness of breath. denies: cough Gastrointestinal: denies: abdominal pain, diarrhea, nausea, vomiting Genitourinary: reports: no symptoms reported Musculoskeletal: denies: bone pain, back pain Integumentary: reports: no symptoms reported Neurological: reports: no symptoms reported Psychiatric: reports: no symptoms reported Endocrine: reports: no symptoms reported Hematologic/Lymphatic: reports: no symptoms reported Allergic/Immunologic: reports: no symptoms reported All Other Systems: Reviewed and Negative Past History - Adult - PAST MEDICAL HISTORY-ADULT Review of Records: reports: Old Records Reviewed, Nursing Assessment Review, Medications Reviewed, Social history reviewed & non-contributory. Major Childhood Illnesses: reports: denies history Cardiovascular: reports: cardiac disease, HTN Respiratory: reports: denies history Gastrointestinal: reports: cancer (bladder) Obstetrical/Gynecological: reports: denies history Genitourinary: reports: denies history Musculoskeletal: reports: denies history Neurological: reports: denies history Endocrine/Immune: reports: denies history Other Conditions: reports: denies history - PRIOR SURGERIES/PROCEDURES Surgical/Procedure History: reports: appendectomy, cholecystectomy - IMMUNIZATION STATUS Childhood Immunizations: See Nurse Assessment Flu Vaccine: See Nurse Assessment - FAMILY HISTORY Family History: reviewed, not pertinent Physical Exam-General - CONSTITUTIONAL General Appearance: alert, no apparent distress - EYES Eyes: pink conjunctivae - HEAD, EARS, NOSE, MOUTH & THROAT HENMT: moist mucous membranes, normal ENT inspection, TMs normal, pharynx normal - NECK Neck: full range of motion, supple, normal inspection - RESPIRATORY Respiratory: lungs clear, normal breath sounds - CARDIOVASCULAR Cardiovascular: regular rate, rhythm - GASTROINTESTINAL (ABDOMEN) Abdominal Exam: non tender, soft - LYMPHATIC Lymphatic: no adenopathy - MUSCULOSKELETAL Back Exam: no CVA tenderness, no vertebral tenderness Extremity: non-tender, other (venous stasis dermatitis Bilateral) - SKIN Integumentary: normal turgor, warm/dry - PSYCHIATRIC Psych/Mental Status: normal mood/affect, normal thought content, normal thought process, oriented x 3 Progress - PLAN OF CARE/RESULTS Progress/Plan/Lab Results: Vital Signs - 8 hr 11/05/16 19:00 11/05/16 19:21 11/05/16 20:29 Temperature 97.9 F Pulse Rate 91 H 84 Respiratory Rate 22 16 Blood Pressure 104/64 90/60 O2 Sat by Pulse Oximetry 95 92 L Laboratory Results - last 24 hr 11/05/16 11/05/16 11/05/16 19:35 19:35 19:35 WBC 14.12 H RBC 3.24 L Hgb 9.6 L Hct 30.6 L MCV 94.4 MCH 29.6 MCHC 31.4 L RDW Std Deviation 14.9 H Plt Count 370 MPV 10.0 Immature Gran % (Auto) 0.6 H Neut % (Auto) 85.5 H Lymph % (Auto) 6.2 L [place] % (Auto) 7.1 Eos % (Auto) 0.5 Baso % (Auto) 0.1 Immature Gran # (Auto) 0.08 H Neut # (Auto) 12.08 H Lymph # (Auto) 0.87 L [place] # (Auto) 1.00 H Eos # (Auto) 0.07 Baso # (Auto) 0.02 PT INR PTT (Actin FS) D-Dimer 1.73 H Sodium 142 Potassium 4.4 Chloride 102 Carbon Dioxide 22 L Anion Gap 18 BUN 43 H Creatinine 1.8 H Estimated GFR/1.73 m2 36 BUN/Creatinine Ratio 24 Glucose 92 Calculated Osmolality 294 Calcium 8.5 L Magnesium 1.9 Total Bilirubin 0.45 AST 24 ALT 36 Alkaline Phosphatase 105 Creatine Kinase 122 Troponin T Guz-D-Kmyrsrqbyzx Pept Total Protein 5.7 L Albumin 3.2 L Globulin 2.5 Albumin/Globulin Ratio 1.3 11/05/16 11/05/16 11/05/16 19:35 19:35 19:35 WBC RBC Hgb Hct MCV MCH MCHC RDW Std Deviation Plt Count MPV Immature Gran % (Auto) Neut % (Auto) Lymph % (Auto) [place] % (Auto) Eos % (Auto) Baso % (Auto) Immature Gran # (Auto) Neut # (Auto) Lymph # (Auto) [place] # (Auto) Eos # (Auto) Baso # (Auto) PT 13.0 H INR 1.22 PTT (Actin FS) 29.2 D-Dimer Sodium Potassium Chloride Carbon Dioxide Anion Gap BUN Creatinine Estimated GFR/1.73 m2 BUN/Creatinine Ratio Glucose Calculated Osmolality Calcium Magnesium Total Bilirubin AST ALT Alkaline Phosphatase Creatine Kinase Troponin T 0.161 H Jso-D-Dodrjwkilsn Pept 28674 H Total Protein Albumin Globulin Albumin/Globulin Ratio Orders Category Date Time Status Cardiac Monitoring DIRECTED Care 11/05/16 19:15 Active Saline Loc NOW Care 11/05/16 19:15 Active CHEST-PORTABLE [RAD] Stat Exams 11/05/16 19:15 Completed CBC WITH ELECTRONIC DIFF [HEME] Stat Lab 11/05/16 19:35 Completed CK PROFILE [SP CHEM] Stat Lab 11/05/16 19:35 Completed COMPREHENSIVE METABOLIC PANEL [CHEM] Stat Lab 11/05/16 19:35 Completed D-DIMER [CHEM] Stat Lab 11/05/16 19:35 Completed MAGNESIUM [CHEM] Stat Lab 11/05/16 19:35 Completed PRO B-NATRIURETIC PEPTIDE Stat Lab 11/05/16 19:35 Completed PROTIME WITH INR [COAG] Stat Lab 11/05/16 19:35 Completed PTT [COAG] Stat Lab 11/05/16 19:35 Completed TROPONIN T Stat Lab 11/05/16 19:35 Completed Furosemide [Lasix] Med 11/05/16 20:36 Discontinued 40 mg IV NOW ONE Succinylcholine [Quelicin] Med 11/05/16 19:55 Discontinued 200 mg .ROUTE .STK-MED ONE EKG [EKG] Stat Ther 11/05/16 19:15 Ordered Result Diagrams: 11/05/16 19:35 11/05/16 19:35 - EKG 1 Time of EKG reading by physician:: 19:07 EKG Read and Signed by:: Raj August EKG Interpretation (*Must complete 3 of following elements*): Abnormal Rate: 95 Rhythm: AFib [place]: left (deviation) QRS: LVH (with QRS widening) Comments: Abnormal ECG, Twave abnormality - CONSULTS/PCP/HOSPITALIST Notification #1 *Consult/PCP/Hospitalist*: Time Discussed: 20:55 Reason/Comments: Admit Consult Disposition: Admit (Admit Accepted) Departure - Departure Date of Disposition Decision: 11/05/16 Time of Disposition Decision: 20:50 DIAGNOSIS: Congestive heart failure (CHF) Qualifiers: Congestive heart failure type: unspecified congestive heart failure type Congestive heart failure chronicity: unspecified congestive heart failure chronicity Qualified Code(s): I50.9 - Heart failure, unspecified Disposition: ADMITTED INPATIENT 09 Certified Medical Emergency: Emergent Condition: Fair Referrals and Follow-Ups: Benja Beckham [Primary Care Provider] - - Critical Care Note This patient required my direct & personal management of CC.: No This chart was documented by the indicated scribe, (Demetria Russell Scribe) and accurately reflects the services I performed and decisions made by me, Raj August MD, as attested by the provider's signature.
[2016-11-05] MEDS ORDERED: ZITHROMAX PO ONE (22:07)
[2016-11-05] MEDS ORDERED: TYLENOL PO PRN (22:07)
--- NOTE | 2016-11-05 23:17 | HISTORY AND PHYSICAL ---
PATIENT OF: Dr. Benja Beckham in [place]. REASON FOR ADMISSION: Slowly progressively worsening shortness of breath. HISTORY OF PRESENT ILLNESS: Mr. Junior Jang is an 86-year-old man with chronic systolic heart failure, ejection fraction of 35%, hypertensive heart disease, coronary artery disease, peripheral vascular disease, hyperlipidemia, BPH and prior history of bladder cancer, COPD , peptic ulcer disease. He comes in today at the behest of his daughter who has noted that he has been getting progressively short of breath. The patient is not a very good historian. He only states that his shortness of breath began yesterday, but denies any fever or chills. He has a cough which is nonproductive. He admits to having chest congestion. He admits to having progressively worsening dyspnea on exertion and decreased exercise tolerance over the last 1-2 weeks. No PND, orthopnea. No chest pain. No leg swelling. No easy satiety, abdominal distention or swelling. No GI complaints or genitourinary complaints. No upper respiratory complaints. REVIEW OF SYSTEMS: All 12 system review was done. Positive findings noted above in HPI. Patient also complains of left heel pain which has been chronic, and not getting any worse. ALLERGIES: Morphine. HOME MEDICATIONS: This was not reconciled. However, the list I have on hand shows that he was on albuterol q.6, Uroxatral 10 mg daily, aspirin 81 mg daily, Symbicort 1-2 puffs b.i.d., vitamin D2, 50,000 units q.weekly, folic acid 1 mg daily, Lasix 20 mg daily, Neurontin 200 mg b.i.d., lovastatin 40 mg daily, Toprol 25 mg daily, Prilosec 40 mg daily, Ditropan 5 mg b.i.d., potassium chloride 20 mEq daily, prednisone 5 mg daily, Ultram 50 mg q.6 p.r.n. PAST SURGICAL HISTORY: He has had a partial resection of a cancerous tumor from bladder, CABG, cholecystectomy, appendectomy. SOCIAL HISTORY: Drinks about 1-2 beers more than twice a week. No smoking or illicit drug use. Lives alone, but he is checked on by his daughter. FAMILY HISTORY: Notable for heart disease. No diabetes. IMAGING: Chest film reviewed by me showed increased vascular markings bilaterally cannot rule out underlying pneumonia in the right lung. LABORATORY WORK: White count 14,000, hemoglobin and hematocrit 9 and 30, platelets 360,000, 85% neutrophils. BUN 14, creatinine 1.8. Troponin 0.161. CK 122. ProBNP 14,000, albumin 3.2, D- dimer 1.73, PT PTT normal. EKG pending from review at this time. Creatinine increased from a baseline of 1.2-1.8. PHYSICAL EXAMINATION: GENERAL: Chronically ill, elderly man who is not in acute distress. He is alert and oriented x3 with normal mood and affect. VITAL SIGNS: Blood pressure is 90/60, heart rate 84, respirations 16, temperature is 97.9. He is on for 4 L, 95-98%. HEENT: Head is normocephalic, atraumatic. Eyes, LICO, EOMI. He is anicteric, not pale. ENT and oropharyngeal exam grossly normal. No central cyanosis is noted. NECK: Supple. No JVD. No hepatojugular reflux. No bruit. No thyromegaly noted. CHEST: A few bibasilar crepitations in both lung bolden, right greater than left. No wheezes appreciated. CARDIOVASCULAR: First and second heart sounds are heard, but distant. Intermittent skipped beats. No murmurs appreciated. No gallops appreciated. There is a port in the right pectoral area. ABDOMEN: Full, soft at times, megaly, bowel sounds are hypoactive. RECTAL: Deferred at this time. EXTREMITIES: Patient has significantly diminished pulses in both upper and lower extremity, worse of the lower extremity, because the pulses are barely palpable. The feet are slightly cool to touch. Trace edema in the lower extremities. He has skin changes which are high hyperpigmentary changes. They are consistent with chronic venous insufficiency. There is a 1 cm soft tissue swelling on the medial aspect of the proximal medial aspect of his left tibial area. It is not tender. It is not erythematous. The patient also complains of exquisite tenderness on his left heel to the point he did not want me to touch it. He says this is chronic. NEUROLOGICAL: No focal deficits. SKIN: Patient has numerous chronic bruises on the dorsal surface of his upper extremities. MUSCULOSKELETAL: Patient has mild to moderate diffuse muscular atrophy of his extremities ASSESSMENT: Mild acute respiratory failure secondary to early onset congestive heart failure versus pneumonia. PLAN: 1. At this time, the patient has received a 1 time dose of Lasix and we will continue with a lower dose of IV Lasix due to the patient's borderline hypertension. Repeat labs in the morning, but more importantly, a PA and lateral to really determine if this is truly pneumonia versus congestive heart failure. It is possible he could have both coexisting at the same time. As such, we will treat patient for community-acquired pneumonia with Zithromax and Rocephin. Continue nebulizer treatments. 2. Chronic obstructive pulmonary disease exacerbation. Continue with long- acting and short- acting bronchodilators. We will maintain his maintenance dose of steroids at this point in time, but this may be increased to therapeutic doses if patient's respiratory condition has not improved, but one needs to be aware that depending on degree of water retention, this could worsen patient's congestive heart failure. 3. Acute on chronic congestive heart failure. Continue with diuresis. Avoid salt retaining medications i.e. nonsteroidal antiinflammatory drugs, steroids. 4. Coronary artery disease. Continue with statins, aspirin and beta blockers. Change the patient from lovastatin to Pravachol due to renal dysfunction. 5. Acute versus chronic kidney disease. We will try and avoid nephrotoxic drugs. His creatinine went up from 1.2 to 1.8 and since the patient is being diuresed, we need to monitor this and determine if he would need diuresis any further so as not to worsen his renal function. 6. Peripheral arterial disease. Continue aspirin, statin and beta blockers. 7. Hyperlipidemia. Switch from lovastatin to Pravachol. 8. Additional things, DVT prophylaxis started. Follow CBC also to see if patient's white count declines with antibiotic treatment. Evaluate patient for home O2 if he is not on home O2 at this point in time. We will also do serial cardiac enzymes and monitor his troponin levels. Uric acid was ordered due to the pain in the patient's heel to make sure he does not have a gouty flare-up and if this is elevated, recommend an x-ray of the left heel. cc: MD Benja Monae MD [facility]
[2016-11-06] MEDS: ULTRAM PO PRN ×3 (00:44→20:22)
[2016-11-06] MEDS: HEPARIN SUBQ SCH ×3 (00:44→20:22)
[2016-11-06] MEDS: ROCEPHIN 1 GM/NS 1 GM/50 ML IVPB IV SCH ×2 (00:44→20:22)
[2016-11-06 02:00] LABS: CK INDEX 11.8 (0.0-2.5); CK-MB 25.48 ng/mL (0.0-5.0)
[2016-11-06] MEDS: DUONEB (A & A) INH SCH ×4 (03:21→19:39)
[2016-11-06 05:25] LABS: MANUAL DIFF NEEDED? NO
[2016-11-06 05:39] LABS: BASO% 0.2 % (0.0-0.8); EOS# 0.15 X1000 (0.0-0.7); EOS% 1.2 % (0.0-10.0); HEMATOCRIT 28.6 % (42.0-52.0); IMM GRAN# 0.04 X1000 (0.0-0.04); IMM GRAN% 0.3 % (0.0-0.5); LYMPH# 0.99 X1000 (1.2-3.4); LYMPH% 7.9 % (20.5-51.1); MCH 29.7 PG (27-31); MCHC 31.5 g/dL (33-37); MCV 94.4 FL (81-99); MONO# 1.25 X1000 (0.11-0.59); MPV 10.3 FL (7.4-10.4); NEUT% 80.4 % (42.2-75.2); PLT 301 X1000 (130-400); RBC 3.03 XMIL (4.7-6.1)
[2016-11-06 06:09] LABS: CALCIUM 8.6 mg/dL (8.8-10.2); POTASSIUM 3.4 mmol/L (3.5-5.1)
[2016-11-06] MEDS: PRILOSEC PO SCH (06:25)
--- NOTE | 2016-11-06 07:28 | EKG Report ---
Test Performed on : 11/06/2016 06:40:31 AM Test Reason : chf Blood Pressure : / mmHG Vent. Rate : 105 BPM Atrial Rate : 111 BPM P-R Int : 000 ms QRS Dur : 146 ms QT Int : 428 ms P-R-T Axes : 000 -62 123 degrees QTc Int : 565 ms Atrial fibrillation. with rapid ventricular response. Left axis deviation Right bundle branch block Moderate voltage criteria for LVH, may be normal variant T wave abnormality, consider lateral ischemia Abnormal ECG When compared with ECG of 06-NOV-2016 03:09, (Unconfirmed) ST depression in V2-V3 Confirmed by Jarvis Toro DO ([id number]) on 11/10/2016 11:20:26 AM
--- NOTE | 2016-11-06 07:29 | EKG Report ---
Test Performed on : 11/06/2016 03:09:36 AM Test Reason : elevated CK and trops Blood Pressure : / mmHG Vent. Rate : 095 BPM Atrial Rate : 117 BPM P-R Int : 000 ms QRS Dur : 128 ms QT Int : 424 ms P-R-T Axes : 000 -67 170 degrees QTc Int : 532 ms Atrial fibrillation. Left axis deviation Right bundle branch block Moderate voltage criteria for LVH, may be normal variant Inferior infarct (cited on or before 28-AUG-2016) Anterior infarct (cited on or before 28-AUG-2016) Abnormal ECG When compared with ECG of 06-NOV-2016 03:08, (Unconfirmed) T wave inversion less evident in V2 Nonspecific ST depression is no longer present in far lateral leads V4-V5-V6 Confirmed by Jarvis Toro DO ([id number]) on 11/10/2016 11:19:15 AM
--- NOTE | 2016-11-06 07:50 | EKG Report ---
Test Performed on : 11/05/2016 7:07:10 PM Test Reason : NO EKG ORDER Blood Pressure : / mmHG Vent. Rate : 095 BPM Atrial Rate : 097 BPM P-R Int : 000 ms QRS Dur : 128 ms QT Int : 414 ms P-R-T Axes : 000 -61 159 degrees QTc Int : 520 ms Undetermined rhythm Left axis deviation Left ventricular hypertrophy with QRS widening Inferior infarct , age undetermined Cannot rule out Anterior infarct (cited on or before 28-AUG-2016) T wave abnormality, consider lateral ischemia Abnormal ECG When compared with ECG of 29-AUG-2016 11:54, Current undetermined rhythm precludes rhythm comparison, needs review Right bundle branch block is no longer present Questionable change in initial forces of Anterior leads Unconfirmed Result
[2016-11-06] MEDS: UROXATRAL PO SCH (08:42)
[2016-11-06] MEDS: KLOR-CON PO SCH (08:43)
[2016-11-06] MEDS: VITAMIN D PO SCH (08:43)
[2016-11-06] MEDS: ASPIRIN PO SCH (08:44)
[2016-11-06] MEDS: FOLIC ACID PO SCH (08:44)
[2016-11-06] MEDS: PREDNISONE PO SCH (08:44)
[2016-11-06] MEDS ORDERED: TOPROL XL PO SCH (09:00)
[2016-11-06] MEDS ORDERED: LASIX IV SCH (09:00)
[2016-11-06] MEDS: BROVANA NEB INH SCH ×2 (09:56→19:39)
[2016-11-06] MEDS: LANOXIN IV SCH ×3 (10:29→23:50)
[2016-11-06] MEDS ORDERED: LASIX IV ONE (10:53)
[2016-11-06 11:40] LABS: MAGNESIUM 1.8 mg/dL (1.5-2.7)
[2016-11-06] MEDS ORDERED: VENOFER IV SCH (12:00)
--- NOTE | 2016-11-06 12:46 | CONSULTATION ---
DATE OF CONSULTATION: 11/06/2016 CHIEF COMPLAINT: Shortness of breath. HISTORY OF PRESENT ILLNESS: Mr. Jang is an 86-year-old male who is known to me, who presented to the emergency room on 11/05/2016 complaining of increasing dyspnea to minimal effort associated with swelling of his legs. The patient had not been feeling well for the preceding few days. He had experienced some discomfort across the anterior chest intermittently, nonexertional. He also had been complaining of some cough. Because of his increasing symptoms, he presented to the emergency room. Upon presentation, they did a chest x-ray at about 7:15 p.m. that shows pulmonary edema versus pneumonia. A 12-lead electrocardiogram done at the time of presentation shows what appears to be atrial fibrillation with a left anterior fascicular block, possible septal infarct, posterior infarct, nonspecific ST-T and PVCs. They did serial cardiac enzymes including CKs and troponins. The CKs started out at 122 at 7:35 p.m. and then went up by 0005 hours up to 216 units, and then it came down at 10:50 a.m. to 181 units. His CKMB fraction was positive at midnight at 25.48 nanograms. His troponin level initially was 0.161, and then it became more positive at 0.315 and 0.334. The patient is not in distress. ProBNP was 14,844. His hemoglobin initially was 9.6 and subsequently 9.0 g%. Creatinine was 1.8 and subsequently 1.7. I am seeing the patient on the morning of 11/06/2016, and he appears to be in no distress. He is conversant. PAST MEDICAL HISTORY: Positive for severe coronary artery disease. He has had previous coronary bypass procedure. He has hypertension. He has ischemic cardiomyopathy, hyperlipidemia, chronic kidney disease, peripheral vascular occlusive disease and peptic ulcer. I have seen the patient at my office, the last time back in 01/2016. At that time, I had reviewed his records from [place]. He had a heart cath done in 01/2015 that showed patent LAD with an occluded mammary graft to that vessel. He had a distal 70% left circumflex stenosis. There was a patent vein graft to the marginal system. There was a 95% ostial right coronary artery with an occluded graft to the distal right coronary artery. They did not recommend any interventions. His opal polisher back then found that his ejection fraction was in the range of 40% to 45%. I saw the patient at my office in 12/2015, and we recommended a stress test which was done on 01/24/2016 and showed fixed apical inferior and basal inferior defect consistent with previous infarct. There was no inducible ischemia. A 2D echocardiogram was done on 01/31/2016 and showed ejection fraction in the order of 38% to 40% with impairment of the septum and the apex. There was moderate degree of aortic regurgitation. Moderate degree of mitral regurgitation. Carotid ultrasound shows no critical disease in the left carotid artery and evidence of a prior carotid endarterectomy on the left side. The patient since then has been admitted to [facility] in 07/2016 and then again on 10/08/2016. Of note, when he was admitted recently, his troponins were noted to be positive on 08/28/2016 of 0.138, and the on 10/08/2016 was 0.075, and the highest number was 0.074 or 0.060. At any rate, the patient has not had any documented acute coronary event. He has grown Klebsiella in the urine back on 08/28/2016. At this time, his C-reactive protein is elevated at 68.58. His sedimentation rate has been requested. It is pending at the time of this dictation. He has low iron saturation about 13%. HOME MEDICATIONS: He has been taking ramipril 1 capsule daily, Lasix 2 tablets twice a day, tramadol 50 mg every 6 hours, prednisone 5 mg daily, potassium chloride 20 mEq daily, oxybutynin 1 tablet twice a day, omeprazole 40 mg daily, metoprolol 25 mg daily, lovastatin 2 mg daily, gabapentin 200 twice a day, folic acid 1 mg daily, alfuzosin 10 mg daily, albuterol inhaler, budesonide inhaler, Symbicort, cholecalciferol and vitamin D3. ALLERGIES: He is allergic to morphine. PAST SURGICAL HISTORY: Positive for bladder tumor resection, cholecystectomy, appendectomy. SOCIAL HISTORY: He lives by himself. Daughter is nearby. He is retired. He is a . FAMILY HISTORY: Noncontributory. REVIEW OF SYSTEMS: Multiple systems were checked. There is no further comment other than the patient has limited capacity to ambulate. He has poor balance, and he has a tendency to fall. PHYSICAL EXAMINATION: Blood pressure is 98/60, pulse fluctuates from 96 to 114, respirations 18, temperature is 97.8. The patient is awake, follows commands. He is hard of hearing. He looks somewhat pale. HEENT is unremarkable. Chest: Diminished breath sounds in both lung bolden with occasional scattered crepitans. Heart sounds are irregularly irregular with a systolic murmur over the base of the heart. There is a well-healed sternotomy scar. No gallop is noted. Abdomen is scaphoid, nontender. No hepatomegaly. No bruits. He has some ecchymosis where they gave him the Lovenox shots. Extremities showed decreased pulses. No edema. He has some dystrophic changes in the nails of both feet. His skin is cool. He has also some dystrophic skin changes from vascular disease. Neurologic: He is awake, follows commands, moves all 4 extremities. He is pleasant. Mood is normal. IMPRESSION: 1. The patient is presenting with increasing dyspnea, swelling of the legs, elevated ProBNP and abnormal chest x-ray consistent with congestive heart failure, systolic, chronic, with acute exacerbation, probably acute diastolic dysfunction. Coincidental, acute coronary syndrome cannot be excluded. 2. Severe coronary heart disease, positive cardiac enzymes, previous bypass surgery. 3. History of hypertension. 4. History of hyperlipidemia. 5. Peripheral vascular disease. 6. Poor functional status. 7. Paroxysmal atrial fibrillation. 8. Possibly iron deficiency anemia. RECOMMENDATIONS: At this point in time, I would suggest to optimize his magnesium, potassium, cover him for the possibility of concomitant pneumonia or urinary tract infection. Cultures have been requested. Having positive inflammatory markers including elevated sedimentation rate at 47 and C-reactive protein at 68 suggests that he may have some ongoing infection or a smoldering infection. We will arrange for followup EKGs. We will put him on low dose metoprolol and digoxin to control his heart rate. Because of the anemia, we may want to avoid giving him full dose anticoagulation. Further advice will be forthcoming. Thank you for the opportunity to participate in his evaluation. cc: Vicente Mcclure MD
[2016-11-06] MEDS: LOPRESSOR PO SCH ×3 (12:57→23:50)
[2016-11-06] MEDS: VENOFER 200 MG in NS 150 ML IV SCH (13:46)
--- NOTE | 2016-11-06 16:04 | PROGRESS NOTE ---
DATE: 11/06/2016 SUBJECTIVE: This patient states that he is feeling better, he is still having mild shortness of breath. He denies chest pain, nausea, vomiting. OBJECTIVE: Vital Signs: Temperature 97.5 degrees, pulse 86, respiratory rate 18, blood pressure 88/53, oxygen saturation 93% on 4 L of nasal cannula. HEENT: Head normocephalic. No trauma. PERRLA. Neck: Supple. Mild JVD. No masses. Central trachea. Chest: Decreased breath sounds globally with some rales and rhonchi at the bases. Cardiovascular: Irregularly irregular rate and rhythm. I think he probably has a systolic murmur. Rate controlled. Abdomen: Soft, nontender, nondistended. No hepatosplenomegaly. Extremities: No edema. No clubbing. No cyanosis. He has chronic venous stasis changes at the level of the lower extremities. Neurological: The patient is alert and oriented x3. No focal deficits. LABORATORY: WBC 12.5, hemoglobin 9, hematocrit 28.6, platelets 301,000. Sodium 144, potassium 3.4, chloride 104, bicarbonate 21, BUN 45, creatinine 1.7, glucose 62, calcium 8.6. Troponins 0.31, 0.33, 0.31. ASSESSMENT AND PLAN: 1. Congestive heart failure exacerbation, systolic. He had a previous echocardiogram that showed an ejection fraction around 38%, I will continue with diuresis. Cardiology Department is following this patient. He feels a little bit better. 2. Possible acute coronary syndrome, this patient's troponins are elevated. He is not complaining of chest pain. We will monitor. He is on anticoagulation but not full dose because of his anemia. 3. Severe coronary artery disease status post bypass surgery, with positive cardiac enzymes as above. 4. History of hypertension. At this moment this patient is having hypotension. We will continue to monitor. 5. Hyperlipidemia. Continue with home medication. 6. Peripheral vascular disease. Aware. 7. Paroxysmal atrial fibrillation. Continue with the same management for now. 8. Right lower lobe pneumonia versus atelectasis. This patient has been placed on ceftriaxone and azithromycin. I will continue with the same treatment. 9. Hypokalemia. Potassium has been replaced. Probably tomorrow we will need to replace the potassium again because he is getting Lasix. 10. Physical deconditioning. Once he gets a little bit better we will consult Physical Therapy for evaluation. I am assuming this is going to be in 1 or 2 days. 11. Iron-deficiency anemia, will continue to monitor. This patient is getting Venofer x3. 12. Chronic obstructive pulmonary disease not in exacerbation. Continue to monitor. 13. History of peptic ulcer disease. I will put this patient on proton pump inhibitors. 14. History of bladder cancer. Aware. CRITICAL CARE TIME: 35 minutes. cc: Denny Dodge MD
[2016-11-06] MEDS: ZITHROMAX PO SCH (20:21)
[2016-11-06] MEDS: PRAVACHOL PO SCH (20:22)
[2016-11-06] MEDS: LASIX IV SCH (20:22)
[2016-11-07] MEDS: DUONEB (A & A) INH SCH ×5 (03:22→21:00)
[2016-11-07 05:16] LABS: HEMATOCRIT 29.8 % (42.0-52.0); HEMOGLOBIN 9.4 g/dL (14.0-18.0); MCH 30.3 PG (27-31); MCHC 31.5 g/dL (33-37); MCV 96.1 FL (81-99); MPV 10.2 FL (7.4-10.4); RBC 3.1 XMIL (4.7-6.1)
[2016-11-07 05:36] LABS: CALCIUM 8.7 mg/dL (8.8-10.2); POTASSIUM 3.4 mmol/L (3.5-5.1)
[2016-11-07] MEDS: LOPRESSOR PO SCH ×4 (05:54→23:29)
[2016-11-07] MEDS: PRILOSEC PO SCH ×2 (05:54→06:10)
--- NOTE | 2016-11-07 07:03 | EKG Report ---
Test Performed on : 11/07/2016 06:15:58 AM Test Reason : elevated troponins Blood Pressure : / mmHG Vent. Rate : 069 BPM Atrial Rate : 098 BPM P-R Int : 000 ms QRS Dur : 146 ms QT Int : 512 ms P-R-T Axes : 000 -63 132 degrees QTc Int : 548 ms Atrial fibrillation. Left axis deviation Right bundle branch block Moderate voltage criteria for LVH, may be normal variant Anteroseptal infarct , age undetermined Abnormal ECG When compared with ECG of 06-NOV-2016 06:40, (Unconfirmed) Vent. rate has decreased BY 36 BPM Nonspecific T wave abnormality now evident in Inferior leads T wave amplitude has decreased in far precordial leads V5-V6-V7 ST more depressed in V2-V3 Confirmed by Jarvis Toro DO ([id number]) on 11/10/2016 7:54:01 PM
--- NOTE | 2016-11-07 07:28 | Diag Imaging Result Doc PS360 ---
CHEST-PORTABLE - 11/07/2016 INDICATION: dyspnea TECHNIQUE: COMPARISON: 11/05/2016 FINDINGS: Stable right chest port. Stable sternotomy wires. Stable cardiomegaly and significant pulmonary vascular congestion. There is perhaps slight improvement in the extensive bilateral mixed infiltrates most compatible with pulmonary edema. There are probable trace pleural effusions. IMPRESSION: Minimal improvement in the pulmonary edema. Electronically signed by Jesus Segundo 11/07/2016 7:25 AM
[2016-11-07] MEDS: FOLIC ACID PO SCH (08:28)
[2016-11-07] MEDS: PREDNISONE PO SCH (08:28)
[2016-11-07] MEDS: KLOR-CON PO SCH (08:28)
[2016-11-07] MEDS: ASPIRIN PO SCH (08:28)
[2016-11-07] MEDS: HEPARIN SUBQ SCH ×2 (08:28→20:41)
[2016-11-07] MEDS: ULTRAM PO PRN ×3 (08:28→20:41)
[2016-11-07] MEDS: LANOXIN IV SCH (08:29)
[2016-11-07] MEDS: UROXATRAL PO SCH (08:29)
[2016-11-07] MEDS: LASIX IV SCH ×2 (08:29→20:41)
[2016-11-07] MEDS ORDERED: KLOR-CON PO ONE (08:50)
[2016-11-07] MEDS: BROVANA NEB INH SCH ×2 (09:59→21:00)
[2016-11-07] MEDS: VENOFER 200 MG in NS 150 ML IV SCH (12:22)
--- NOTE | 2016-11-07 12:51 | PROGRESS NOTE ---
DATE: 11/07/2016 CHIEF COMPLAINT: Shortness of breath. SUBJECTIVE: Mr. Jang is breathing slightly better. He is not having any chest pain. He denies having any extremity pain or palpitations. Telemetry shows atrial fibrillation with PVCs. EKG today shows the same, atrial fibrillation with controlled ventricular response with PVCs. Right bundle branch block noted. His cardiac enzymes have come down, CK to 126. His troponin level has also come down to 0.284. OBJECTIVE: VITAL SIGNS: His blood pressure right now is 113/67, temperature 97.5, pulse 77, respirations 22. GENERAL: He is awake, alert, and follows commands. HEENT: Unremarkable. CHEST: Some end expiratory wheezing and occasional scattered rhonchi. HEART: Sounds are irregularly irregular. Systolic murmur noted of 1 to 2 over 6 over the left sternal border. ABDOMEN: Soft, nontender. No hepatomegaly. EXTREMITIES: Showed no edema. Pulses diminished. NEUROLOGIC: Follows commands. Moves 4 extremities. LABORATORY: Sodium 143, potassium 3.4, BUN 37, creatinine 1.4. His hemoglobin is 9.4, white count 10,120. IMPRESSIONS: 1. Patient who presented with increasing dyspnea consistent with exacerbation of congestive heart failure, which is systolic with early acute diastolic component. 2. Possible small [id number] myocardial infarction on top of history of severe coronary heart disease. 3. History of hypertension. 4. History of hyperlipidemia. 5. Chronic atrial fibrillation. RECOMMENDATIONS: At this point in time, I would probably continue all present therapies, including Lasix and potassium replacement. I do not believe this patient is going to benefit by invasive cardiac evaluation at this time. I would probably continue present therapy and will follow him along. cc: Vicente Mcclure MD
[2016-11-07] MEDS: SANTYL OINT TOP SCH (14:31)
--- NOTE | 2016-11-07 16:06 | PROGRESS NOTE ---
DATE: 11/07/2016 SUBJECTIVE: This patient states that he is breathing fine. No chest pain, but he is confused. He is oriented in person and time, but not in place. OBJECTIVE: Vital Signs: Temperature 98.1 degrees, pulse 74, respiratory rate 17, blood pressure 110/57, oxygen saturation 92 on 4 L of nasal cannula. HEENT: Head normocephalic. No trauma. PERRLA. Neck: Supple. Mild JVD. No masses. Central trachea. Chest: Decreased breath sounds globally with some rales and rhonchi at the bases. Cardiovascular: Irregularly irregular rate and rhythm. Systolic murmur. Rate controlled. Abdomen: Soft, nontender, nondistended. No hepatosplenomegaly. Extremities: No edema. No clubbing. No cyanosis. Neurological examination: The patient is alert. He is oriented x2. He is not oriented in place. He looks confused. No focal motor deficits. LABORATORY: WBC 10.1, hemoglobin 9.4, hematocrit 29.8, platelet 291. Sodium 143, potassium 3.4, chloride 103, bicarbonate 24, BUN 37, creatinine 1.4, glucose 74, calcium 8.7. ASSESSMENT AND PLAN: 1. Congestive heart failure exacerbation, systolic and diastolic. Continue with diuresis. Cardiology Department following this patient. He is not complaining of shortness of breath at this moment. 2. Possible acute coronary syndrome. This patient's troponins are elevated. He is not complaining of chest pain at this moment. We will continue to monitor. He is on anticoagulation, but not full dose because of his anemia. 3. Severe coronary artery disease status post bypass surgery with positive cardiac enzymes as above. 4. History of hypertension. We will monitor. Stable. 5. Hyperlipidemia. Continue with home medication. 6. Peripheral vascular disease. Aware. 7. Paroxysmal atrial fibrillation. Continue with the same management for now. 8. Right lower lobe pneumonia versus atelectasis. This patient has been placed on ceftriaxone and azithromycin. I will continue with the same management. 9. Hypokalemia. I will replace the potassium today. 10. Physical deconditioning. I will ask for physical therapy evaluation. 11. Iron deficiency anemia. Continue to monitor. This patient is getting Venofer times three. 12. Chronic obstructive pulmonary disease not in exacerbation. Continue to monitor. 13. History of peptic ulcer disease. Continue with proton pump inhibitors. 14. History of bladder cancer. Aware. CRITICAL CARE TIME: 35 minutes. cc: Denny Dodge MD
[2016-11-07] MEDS: CALMOSEPTINE OINTMENT TOP PRN (16:25)
[2016-11-07] MEDS ORDERED: ATIVAN IV ONE (17:04)
[2016-11-07 20:14] LABS: ALLEN TEST YES; BE 2.6 mmoll (-3.0-3.0); BLOOD TYPE ARTERIAL; DRAW SITE R RADIAL; O2(CT) 11.7 mL/dL (15.0-23.0); PCO2(98.6) 30 mmHg (35-45); PO2(98.6) 53 mmHg (60-100); SAMPLE BLOOD; SAO2 94.7 % (95.0-100.0); THB 9.1 g/dL (11.5-17.4); pH(98.6) 7.53 (7.35-7.45)
[2016-11-07 20:15] LABS: MODALITY CANNULA
[2016-11-07] MEDS: PRAVACHOL PO SCH (20:41)
[2016-11-07] MEDS: ZITHROMAX PO SCH (20:41)
[2016-11-07] MEDS: ROCEPHIN 1 GM/NS 1 GM/50 ML IVPB IV SCH (20:42)
[2016-11-07] MEDS: HALDOL IM PRN (20:42)
[2016-11-07] MEDS ORDERED: ULTRAM PO ONE (23:40)
[2016-11-08] MEDS: NEURONTIN PO SCH ×3 (02:03→20:36)
[2016-11-08] MEDS: DUONEB (A & A) INH SCH ×5 (03:25→21:21)
[2016-11-08 05:04] LABS: MANUAL DIFF NEEDED? NO
[2016-11-08 05:08] LABS: BASO% 0.2 % (0.0-0.8); EOS# 0.17 X1000 (0.0-0.7); EOS% 1.7 % (0.0-10.0); HEMATOCRIT 32.1 % (42.0-52.0); HEMOGLOBIN 9.9 g/dL (14.0-18.0); IMM GRAN# 0.08 X1000 (0.0-0.04); IMM GRAN% 0.8 % (0.0-0.5); LYMPH# 0.83 X1000 (1.2-3.4); LYMPH% 8.1 % (20.5-51.1); MCH 29.2 PG (27-31); MCHC 30.8 g/dL (33-37); MCV 94.7 FL (81-99); MONO# 1.01 X1000 (0.11-0.59); MONO% 9.9 % (1.7-9.3); NEUT% 79.3 % (42.2-75.2); PLT 297 X1000 (130-400); RBC 3.39 XMIL (4.7-6.1)
[2016-11-08 05:25] LABS: CALCIUM 8.5 mg/dL (8.8-10.2); POTASSIUM 3.4 mmol/L (3.5-5.1)
[2016-11-08] MEDS: LOPRESSOR PO SCH ×4 (06:08→23:15)
[2016-11-08] MEDS: PRILOSEC PO SCH ×2 (06:08→07:09)
--- NOTE | 2016-11-08 06:09 | EKG Report ---
Test Performed on : 11/08/2016 05:36:15 AM Test Reason : elevated troponins Blood Pressure : / mmHG Vent. Rate : 073 BPM Atrial Rate : 089 BPM P-R Int : 000 ms QRS Dur : 140 ms QT Int : 464 ms P-R-T Axes : 000 -64 270 degrees QTc Int : 511 ms Sinus rhythm. with marked sinus arrhythmia. - multiple PACs noted (cannot r/o Aif with transition to NSR - see lateral leads) Left axis deviation Right bundle branch block Minimal voltage criteria for LVH, may be normal variant Inferior infarct , age undetermined Anterior infarct (cited on or before 07-NOV-2016) Abnormal ECG When compared with ECG of 07-NOV-2016 06:15, (Unconfirmed) Clinical Correlation advised Confirmed by Jarvis Toro DO ([id number]) on 11/11/2016 9:57:14 AM
[2016-11-08] MEDS: BROVANA NEB INH SCH ×2 (08:09→19:09)
[2016-11-08] MEDS: LASIX IV SCH ×2 (08:23→20:36)
[2016-11-08] MEDS: PREDNISONE PO SCH (08:23)
[2016-11-08] MEDS: ASPIRIN PO SCH (08:23)
[2016-11-08] MEDS: UROXATRAL PO SCH (08:23)
[2016-11-08] MEDS: KLOR-CON PO SCH (08:23)
[2016-11-08] MEDS: FOLIC ACID PO SCH (08:23)
[2016-11-08] MEDS: HEPARIN SUBQ SCH ×2 (08:23→20:36)
[2016-11-08] MEDS: SANTYL OINT TOP SCH (08:24)
[2016-11-08] MEDS: LANOXIN IV SCH (08:24)
[2016-11-08] MEDS ORDERED: KLOR-CON PO ONE (08:25)
[2016-11-08] MEDS: ULTRAM PO PRN (11:23)
[2016-11-08] MEDS: VENOFER 200 MG in NS 150 ML IV SCH (12:24)
--- NOTE | 2016-11-08 13:39 | PROGRESS NOTE ---
DATE: 11/08/2016 CHIEF COMPLAINT: he is not having chest pain. He is sleepy. A chest x-ray done yesterday showed persistent pulmonary edema. Do not have any x-ray for today. He is responsive and he seems to be in good spirits. He is getting the iron infusions. OBJECTIVE: VITAL SIGNS: Temperature 97.7, pulse 77, respirations 17, blood pressure 108/57. GENERAL: He is arousable. HEENT: Unremarkable. CHEST: Diminished breath sounds with occasional rhonchi. HEART: Sounds are irregularly irregular. No definite gallop or murmur noted. ABDOMEN: Soft, scaphoid. EXTREMITIES: Show no edema. NEUROLOGIC: Follows commands. Has no definite focal deficit. LABORATORY: Today, his sodium is 147, potassium 3.4, BUN 28, creatinine 1.3. His hemoglobin is 9.9, hematocrit 32.1, white count 10,210. IMPRESSIONS: 1. Patient who presented with increasing dyspnea, x-ray consistent with pulmonary edema; however, he has high level of inflammatory markers, sedimentation rate and C-reactive protein, suggesting that some of the infiltration of the lung could be pneumonic. He has risk factors for aspiration pneumonia. 2. Elevation of troponin, consistent with lgd-OH-aumnehmql myocardial infarction. He does have coronary heart disease. He is post-bypass. 3. History of hypertension. 4. Chronic atrial fibrillation. 5. Hyperlipidemia. 6. Persistent hypokalemia. RECOMMENDATIONS: At this point in time, we will continue to replace potassium. I would suggest to increase his oral intake. The fact that he is hyponatremic indicates that he is not getting enough free water. Otherwise, I will continue to observe. His EKG today shows atrial fibrillation with nonspecific ST abnormality that has not changed significantly when compared to the admission EKG. We will continue to observe. Of note, his echocardiogram from 08/28/2016 showed decreased ejection fraction in the range of 30% to 35%, consistent with systolic heart failure from coronary heart disease/ischemic cardiomyopathy. We will consider followup echo. cc: Vicente Mcclure MD
--- NOTE | 2016-11-08 16:44 | PROGRESS NOTE ---
DATE: 11/08/2016 SUBJECTIVE: This patient is not complaining of shortness of breath today. He is not complaining of chest pain, but he is confused. He is just oriented to person, but not to time or place. Probably this patient has a past medical history of dementia but I do not have any family members around to corroborate this information. OBJECTIVE: Vital Signs: Temperature 97.7 degrees, pulse 77, respiratory rate 17, blood pressure 108/57, oxygen saturation 98 on 4 L of nasal cannula. HEENT: Head normocephalic. No trauma. PERRLA. Neck: Supple. No JVD. No masses. Central trachea. Chest: Decreased breath sounds at the bases with some rales and rhonchi. Cardiovascular: Irregularly irregular rate and rhythm. Systolic murmur. Abdomen: Soft, nontender, nondistended. No hepatosplenomegaly. Extremities: No edema. No clubbing. No cyanosis. Neurological: The patient is alert. He is oriented x1, just to person. He is confused. No focal motor deficits. LABORATORY: WBC 10.2, hemoglobin 9.1, hematocrit 32.1, platelets 297,000. Sodium 147, potassium 3.4, chloride 105, bicarbonate 24, BUN 28, creatinine 1.3. Glucose is 94. Calcium 8.5, magnesium 1.7. Troponin 0.495. ASSESSMENT AND PLAN: 1. Congestive heart failure exacerbation, systolic and diastolic. Continue with diuresis. Cardiology Department is following this patient. He is not complaining of shortness of breath or chest pain at this moment. 2. Acute coronary syndrome. This patient's troponins are elevated. He has no complaint of chest pain at this moment. We will monitor. He is on anticoagulation but not full dose because of his anemia. 3. Severe coronary artery disease status post CABG with positive enzymes. 4. History of hypertension. We will monitor. Stable. 5. Hyperlipidemia. Continue with home medication. 6. Peripheral vascular disease. Aware. 7. Paroxysmal atrial fibrillation. Continue with the same management for now. 8. Right lower lobe pneumonia versus atelectasis. Continue with ceftriaxone and azithromycin. 9. Possible dementia. 10. Hypokalemia. I will replace the potassium today. 11. Physical deconditioning. Continue with physical therapy. 12. Iron deficiency anemia. This patient is getting Venofer for 3 days. 13. COPD not in exacerbation. 14. History of peptic ulcer disease. Continue with PPIs. 15. History of bladder cancer. Aware. 16. Hypernatremia. We will increase his free water intake. CRITICAL CARE TIME: 30 minutes. cc: Denny Dodge MD
[2016-11-08] MEDS: PRAVACHOL PO SCH (20:36)
[2016-11-08] MEDS: ZITHROMAX PO SCH (20:36)
[2016-11-08] MEDS: ROCEPHIN 1 GM/NS 1 GM/50 ML IVPB IV SCH (20:36)
[2016-11-09] MEDS: DUONEB (A & A) INH SCH ×5 (03:16→21:46)
[2016-11-09 05:21] LABS: MANUAL DIFF NEEDED? NO
[2016-11-09 05:35] LABS: BASO% 0.3 % (0.0-0.8); EOS# 0.24 X1000 (0.0-0.7); HEMATOCRIT 34.4 % (42.0-52.0); HEMOGLOBIN 10.6 g/dL (14.0-18.0); IMM GRAN# 0.12 X1000 (0.0-0.04); LYMPH# 0.69 X1000 (1.2-3.4); LYMPH% 5.8 % (20.5-51.1); MCH 29.5 PG (27-31); MCHC 30.8 g/dL (33-37); MCV 95.8 FL (81-99); MONO# 1.36 X1000 (0.11-0.59); MONO% 11.4 % (1.7-9.3); MPV 10.2 FL (7.4-10.4); NEUT% 79.5 % (42.2-75.2); PLT 291 X1000 (130-400); RBC 3.59 XMIL (4.7-6.1)
[2016-11-09] MEDS: PRILOSEC PO SCH (05:59)
[2016-11-09] MEDS: LOPRESSOR PO SCH ×4 (05:59→22:18)
[2016-11-09 06:06] LABS: CALCIUM 8.8 mg/dL (8.8-10.2); POTASSIUM 3.7 mmol/L (3.5-5.1)
--- NOTE | 2016-11-09 07:00 | EKG Report ---
Test Performed on : 11/09/2016 06:22:55 AM Test Reason : elevated troponins Blood Pressure : / mmHG Vent. Rate : 078 BPM Atrial Rate : 098 BPM P-R Int : 000 ms QRS Dur : 140 ms QT Int : 468 ms P-R-T Axes : 000 -66 164 degrees QTc Int : 533 ms Atrial fibrillation. with a competing junctional pacemaker. Left axis deviation Right bundle branch block Moderate voltage criteria for LVH, may be normal variant Cannot rule out Septal infarct (cited on or before 07-NOV-2016) T wave abnormality, consider lateral ischemia Abnormal ECG When compared with ECG of 08-NOV-2016 05:36, (Unconfirmed) Serial changes of Septal infarct present Confirmed by Jarvis Toro DO ([id number]) on 11/11/2016 10:28:31 AM
[2016-11-09] MEDS: BROVANA NEB INH SCH ×2 (08:02→19:06)
[2016-11-09] MEDS: FOLIC ACID PO SCH (09:07)
[2016-11-09] MEDS: HEPARIN SUBQ SCH ×2 (09:07→20:04)
[2016-11-09] MEDS: ULTRAM PO PRN ×3 (09:07→22:18)
[2016-11-09] MEDS: NEURONTIN PO SCH ×2 (09:07→20:05)
[2016-11-09] MEDS: ASPIRIN PO SCH (09:07)
[2016-11-09] MEDS: PREDNISONE PO SCH (09:07)
[2016-11-09] MEDS: KLOR-CON PO SCH (09:07)
[2016-11-09] MEDS: UROXATRAL PO SCH (09:08)
[2016-11-09] MEDS: LANOXIN IV SCH (09:08)
[2016-11-09] MEDS: LASIX IV SCH ×2 (09:08→20:04)
[2016-11-09] MEDS: SANTYL OINT TOP SCH (10:22)
--- NOTE | 2016-11-09 13:27 | EKG Report ---
Test Performed on : 11/09/2016 12:19:12 PM Test Reason : change in rythmn Blood Pressure : / mmHG Vent. Rate : 070 BPM Atrial Rate : 076 BPM P-R Int : 000 ms QRS Dur : 148 ms QT Int : 466 ms P-R-T Axes : 000 -60 109 degrees QTc Int : 503 ms Normal sinus rhythm. with marked sinus arrhythmia. premature ventricular complexes. Left axis deviation Right bundle branch block Voltage criteria for left ventricular hypertrophy Abnormal ECG When compared with ECG of 09-NOV-2016 12:15, (Unconfirmed) Nonspecific ST depression high-lateral leads (1 and AVL) Confirmed by Jarvis Toro DO ([id number]) on 11/11/2016 10:35:28 AM
--- NOTE | 2016-11-09 14:19 | PROGRESS NOTE ---
DATE: 11/09/2016 SUBJECTIVE: This patient is not complaining of shortness of breath or chest pain. Today he is alert and he is oriented x3, he is answering all my questions and following commands. OBJECTIVE: Vital Signs: Temperature 97.8 degrees, pulse 82, respiratory rate 21, blood pressure 117/69, oxygen saturation 97 on 2 L of nasal cannula. HEENT: Head normocephalic. No trauma. PERRLA. Neck: Supple. No JVD. No masses. Central trachea. Chest: Decreased breath sounds at the bases with some rhonchi. Cardiovascular: Irregularly irregular rate and rhythm. Systolic murmur. Abdomen: Soft, nondistended. No hepatosplenomegaly. Extremities: No edema. No clubbing. No cyanosis. Neurological: The patient is alert and oriented x3. No focal neurological deficits, increased sensation at the level of the legs mostly the anterior part. LABORATORY: WBC 11.9, hemoglobin 10.6, hematocrit 34.4, platelets 291,000. Sodium 148, potassium 3.7, chloride 102, bicarbonate 30, BUN 24, creatinine 1.2, glucose 80, calcium 8.8. ASSESSMENT AND PLAN: 1. Congestive heart failure exacerbation, systolic and diastolic. Continue with diuresis. Cardiology department following this patient. He is not complaining of shortness of breath or chest pain at this moment. 2. Acute coronary syndrome. This patient's troponin has been elevated. He is not complaining of chest pain. Will continue to monitor closely. He is on anticoagulation but not a full dose because of his anemia. 3. Severe coronary artery disease status post coronary artery bypass graft and positive enzymes. Aware. 4. History of hypertension, will monitor, stable. 5. Hyperlipidemia, continue with home medications. 6. Peripheral vascular disease. Aware. 7. Hypernatremia. This patient has been instructed about this problem, he needs to increase his free water intake. 8. Paroxysmal atrial fibrillation. Continue with the same management for now. 9. Right lower lobe pneumonia. Continue with ceftriaxone and azithromycin. 10. Dementia. This patient has been confused on and off. Will monitor. 11. Hypokalemia stable. 12. Physical deconditioning. Continue physical therapy. 13. Iron deficiency anemia. This patient already had Venofer IV for 3 days. 14. Chronic obstructive pulmonary disease not in exacerbation. Aware. 15. History of peptic ulcer disease. Continue with PPIs. 16. History of bladder cancer. Aware. CRITICAL CARE TIME: 35 minutes. cc: Denny Dodge MD
[2016-11-09] MEDS: ROCEPHIN 1 GM/NS 1 GM/50 ML IVPB IV SCH (20:04)
[2016-11-09] MEDS: ZITHROMAX PO SCH (20:05)
[2016-11-09] MEDS: PRAVACHOL PO SCH (20:05)
[2016-11-10] MEDS: DUONEB (A & A) INH SCH ×4 (03:05→21:37)
[2016-11-10] MEDS: LOPRESSOR PO SCH ×4 (04:50→22:57)
[2016-11-10] MEDS: PRILOSEC PO SCH ×2 (04:50→06:02)
[2016-11-10 06:32] LABS: CALCIUM 8.7 mg/dL (8.8-10.2)
[2016-11-10] MEDS: BROVANA NEB INH SCH ×2 (07:48→19:10)
[2016-11-10] MEDS ORDERED: KLOR-CON PO ONE (08:03)
[2016-11-10] MEDS: UROXATRAL PO SCH (08:25)
[2016-11-10] MEDS: NEURONTIN PO SCH ×2 (08:25→20:42)
[2016-11-10] MEDS: KLOR-CON PO SCH (08:25)
[2016-11-10] MEDS: LASIX IV SCH ×2 (08:26→20:41)
[2016-11-10] MEDS: LANOXIN IV SCH (08:26)
[2016-11-10] MEDS: ASPIRIN PO SCH (08:26)
[2016-11-10] MEDS: ULTRAM PO PRN ×3 (08:26→20:42)
[2016-11-10] MEDS: FOLIC ACID PO SCH (08:26)
[2016-11-10] MEDS: PREDNISONE PO SCH (08:26)
[2016-11-10] MEDS: HEPARIN SUBQ SCH ×2 (08:26→20:43)
[2016-11-10] MEDS: SANTYL OINT TOP SCH (11:03)
--- NOTE | 2016-11-10 12:31 | PROGRESS NOTE ---
DATE: 11/10/2016 CHIEF COMPLAINT: Shortness of breath and cough. SUBJECTIVE: Mr. Jang is feeling generally better. He is in good spirits. He denies having any pain. OBJECTIVE: Vital signs: Blood pressure is 118/80, pulse 76, temperature 97.9, and respirations 20. General: He is awake, alert, oriented, and follows commands. HEENT: Unremarkable. Chest: Diminished breath sounds at the bases. Cardiac: Heart sounds are regular and rhythmic. He does have some extrasystole. No gallop or significant murmur is noted. Abdomen: The abdomen is nontender. Extremities: The extremities show decreased pulses. No edema. Neurological: He follows commands and moves all extremities. LABORATORY DATA: Sodium is 142, potassium 3, BUN 28, and creatinine 1.3. IMPRESSION: 1. Patient who presented with increasing dyspnea and cardiac enzymes consistent with non-ST elevation myocardial infarction. 2. Bilateral pulmonary infiltrates with elevated inflammatory markers suggesting bilateral pneumonia. 3. History of hypertension. 4. History of atrial fibrillation. 5. CHF chronic systolic + diastolic./ischemic cardiomyopathy. Of note, his EKG from yesterday at 12:19 p.m. shows sinus rhythm with PACs and a right bundle branch block. He is not in atrial fibrillation on that particular EKG. He has inferior myocardial infarction type of pattern. RECOMMENDATIONS: At this point in time, we will continue to try to optimize his electrolytes. He has been placed on spironolactone. I would like to get a CT of the chest without contrast to evaluate the extent of his pulmonary infiltrates. Further advise will be forthcoming. cc: Vicente Mcclure MD [facility]
--- NOTE | 2016-11-10 12:58 | Diag Imaging Result Doc PS360 ---
EXAM: CT THORAX W/O CONTRAST HISTORY: PNEUMONIA BILATERAL TECHNIQUE: CT of the chest without contrast with dose reduction (clarity.) COMMENT: There are apparent multiple thyroid nodules particularly in the left thyroid lobe. There is extensive atherosclerotic calcification in the thoracic aorta. The ascending aorta is slightly dilated at just above 4 cm in diameter. There is extensive coronary calcification. There is a cyst in the upper pole of the right kidney measuring at least 2.5 cm in diameter. There are no abnormal fluid collections in the chest. There are nodes measuring over 1.5 cm in the right tracheobronchial and hilar region. There is COPD. There are patchy alveolar opacities present in both upper lobes, particularly posteriorly in the right apex and there are also ill-defined but fairly dense opacities in the superior segments of the lower lobes there is increased interstitial markings suggesting fibrosis. There may be some traction bronchiectasis particularly in the right upper lobe. This is worsened considerably since 10/08/2016. IMPRESSION: Patchy atypical pneumonia with possible rapidly progressive fibrosis. Right hilar and mediastinal adenopathy. Ectasia of the ascending aorta. Coronary atherosclerosis. Thyroid nodules. Electronically signed by Roberto Miranda 11/10/2016 12:56 PM
--- NOTE | 2016-11-10 14:21 | PROGRESS NOTE ---
DATE: 11/10/2016 SUBJECTIVE: This patient is not complaining of shortness of breath or chest pain. He is complaining about left lower extremity burning sensation that has been chronic, he is alert and oriented x2. He is not oriented in place. OBJECTIVE: Vital Signs: Temperature 97.9 degrees, pulse 65, respiratory rate 16, blood pressure 91/55, oxygen saturation 95 on 2 L of nasal cannula. HEENT: Head normocephalic. No trauma. PERRLA. Neck: Supple. No trauma. No JVD. Central trachea. Chest: Decreased breath sounds at the bases with mild rhonchi bilaterally. Cardiovascular: Regular rate and rhythm. Systolic murmur. Abdomen: Soft, nontender, nondistended. No hepatosplenomegaly. Extremities: No edema. No clubbing. No cyanosis. Neurological: The patient is alert, oriented x2. He is not oriented in place, he moves all 4 extremities. He had increased sensation at the level of the legs mostly the anterior part. LABORATORY: Sodium 142, potassium 3, chloride 99, bicarbonate 28, BUN 28, creatinine 1.3, glucose 81, calcium 8.7. ASSESSMENT AND PLAN: 1. Acute coronary syndrome, known ST elevation myocardial infarction. Cardiology Department is following this patient closely. He is on anticoagulation but not a full dose because of his anemia. Continue to monitor. 2. Congestive heart failure exacerbation, systolic and diastolic. Continue with diuresis. He is on furosemide. 3. Severe coronary artery disease status post coronary artery bypass graft and positive enzymes, aware. 4. History of hypertension. Will monitor, stable. 5. Hyperlipidemia. Continue with home medication. 6. Peripheral vascular disease. Aware. 7. Hypernatremia resolved. 8. Hypokalemia. Will replace the potassium today. 9. Paroxysmal atrial fibrillation. Continue with the same management for now. 10. Right lower lobe pneumonia. Continue with ceftriaxone and azithromycin. 11. Dementia. This patient has been confused on and off. Will monitor. 12. Physical deconditioning. Continue physical therapy. 13. Iron deficiency anemia status post iron treatment. 14. Chronic obstructive pulmonary disease not in exacerbation. Aware. 15. History of peptic the peptic ulcer disease. Continue PPIs. 16. History of bladder cancer. Aware. CRITICAL CARE TIME: 35 minutes. cc: Denny Dodge MD
[2016-11-10] MEDS ORDERED: BROVANA NEB ONE (18:51)
[2016-11-10] MEDS: ZITHROMAX PO SCH (20:42)
[2016-11-10] MEDS: PRAVACHOL PO SCH (20:43)
[2016-11-10] MEDS: ROCEPHIN 1 GM/NS 1 GM/50 ML IVPB IV SCH (20:43)
[2016-11-11] MEDS: DUONEB (A & A) INH SCH ×3 (03:20→21:36)
[2016-11-11 05:47] LABS: MANUAL DIFF NEEDED? NO
[2016-11-11 05:56] LABS: BASO% 0.3 % (0.0-0.8); EOS% 2.7 % (0.0-10.0); HEMATOCRIT 37.3 % (42.0-52.0); HEMOGLOBIN 11.6 g/dL (14.0-18.0); IMM GRAN# 0.23 X1000 (0.0-0.04); IMM GRAN% 2.1 % (0.0-0.5); LYMPH# 1.14 X1000 (1.2-3.4); LYMPH% 10.3 % (20.5-51.1); MCH 29.7 PG (27-31); MCHC 31.1 g/dL (33-37); MCV 95.6 FL (81-99); MONO# 1.15 X1000 (0.11-0.59); MONO% 10.3 % (1.7-9.3); MPV 10.3 FL (7.4-10.4); NEUT% 74.3 % (42.2-75.2); PLT 297 X1000 (130-400)
[2016-11-11] MEDS: PRILOSEC PO SCH (06:02)
[2016-11-11] MEDS: LOPRESSOR PO SCH ×4 (06:02→22:31)
[2016-11-11 06:16] LABS: CALCIUM 9.1 mg/dL (8.8-10.2); POTASSIUM 3.6 mmol/L (3.5-5.1)
[2016-11-11] MEDS: ULTRAM PO PRN (08:46)
[2016-11-11] MEDS: ASPIRIN PO SCH (08:46)
[2016-11-11] MEDS: UROXATRAL PO SCH (08:46)
[2016-11-11] MEDS: KLOR-CON PO SCH (08:46)
[2016-11-11] MEDS: FOLIC ACID PO SCH (08:46)
[2016-11-11] MEDS: NEURONTIN PO SCH ×2 (08:47→20:57)
[2016-11-11] MEDS: LANOXIN IV SCH (08:47)
[2016-11-11] MEDS: PREDNISONE PO SCH (08:47)
[2016-11-11] MEDS: HEPARIN SUBQ SCH ×2 (08:47→20:57)
[2016-11-11] MEDS: SANTYL OINT TOP SCH (08:48)
[2016-11-11] MEDS: LASIX IV SCH ×2 (08:48→20:57)
--- NOTE | 2016-11-11 13:14 | PROGRESS NOTE ---
DATE: 11/11/2016 CHIEF COMPLAINT: Shortness of breath. SUBJECTIVE: Mr. Jang has no new complaints. He is just lying in bed. At times he appears to be a little confused, but otherwise he has not changed in any significant degree. He is not having any pain anywhere. His oral intake has been poor. OBJECTIVE: Blood pressure is 91/58, temperature 98 degrees, pulse 57, respirations 20. He is arousable. He does not appear to be pale. HEENT is unremarkable. Chest with diminished breath sounds with scattered occasional rhonchi. Heart sounds are slightly irregular. I do not hear any gallop. Abdomen is nontender. Extremities showed no edema. Pulses are diminished. DIAGNOSTIC DATA: Blood work shows that his hemoglobin has risen to 11.6, white count is 11,120. Sodium is 144, potassium 3.6, BUN is 31, creatinine 1.5. A CT scan of the chest was obtained yesterday which has been reported by Dr. Miranda indicating patchy atypical pneumonia with possible rapidly progressing fibrosis, right hilar and mediastinal adenopathy. IMPRESSION: 1. The patient presented with congestive heart failure, chronic, which is systolic and diastolic, secondary to ischemic cardiomyopathy. 2. Increasing dyspnea with elevated cardiac enzymes, suspicious for non-ST myocardial infarction. 3. Abnormal CT scan of the chest with pulmonary infiltrates suspicious for pneumonitis, atypical pneumonia, fibrosis of the lungs. 4. History of hypertension. 5. History of atrial fibrillation. RECOMMENDATIONS: At this point in time, I would suggest to continue present program with diuretics and digoxin. I would probably continue pravastatin and as far as his abnormal CT of the chest, consideration may be given at discussing with Pulmonary or Infectious Disease to decide if specific intervention is required. The patient is presently taking ceftriaxone and azithromycin. We will follow him along. cc: Vicente Mcclure MD
--- NOTE | 2016-11-11 13:20 | PROGRESS NOTE ---
DATE: 11/11/2016 SUBJECTIVE: This patient is still complaining of lower extremity burning sensation/pain. He is alert and oriented x2. No acute events overnight. OBJECTIVE: Vital Signs: Temperature 98.2 degrees, pulse 74, respiratory rate 16, blood pressure 100/67, oxygen saturation 100% on 2 L of nasal cannula. HEENT: Normocephalic. No trauma. PERRLA. Neck: Supple. No JVD. No masses. Central trachea. Chest: Decreased breath sounds at the bases with mild rhonchi bilaterally. Cardiovascular: Irregular rate and rhythm. Systolic murmur. Abdomen: Soft, nontender, nondistended. No hepatosplenomegaly. Extremities: No edema. No clubbing. No cyanosis. Chronic vascular changes. Neurological: The patient is alert, oriented x2. He has increased sensation at the level of the legs, mostly the anterior part. LABORATORY: WBC 11.12, hemoglobin 11.6, hematocrit 37.3, platelet 297,000. Sodium 144, potassium 3.6, chloride 99, bicarbonate 30, BUN 31, creatinine 1.5, glucose of 87, calcium 9.1. ASSESSMENT AND PLAN: 1. Acute coronary syndrome, [id number] elevation myocardial infarction. Cardiology Department is following this patient closely. He is on anticoagulation but not a full dose because of his anemia. Continue to monitor. 2. Congestive heart failure exacerbation, systolic and diastolic. Continue with the same management as per Cardiology. 3. Pneumonia, likely atypical. I have consulted Infectious Disease Department to evaluate this patient. 4. Severe coronary artery disease status post coronary artery bypass graft and positive enzymes, aware. 5. History of hypertension. We will monitor. Stable. 6. Hyperlipidemia. Continue with home medication. 7. Peripheral vascular disease, aware. 8. Hypernatremia, resolved. 9. Hypokalemia, resolved. 10. Paroxysmal atrial fibrillation. Continue with the same management for now. 11. Right lower lobe pneumonia. Continue with ceftriaxone and azithromycin. Like I mentioned before, this patient probably has atypical pneumonia. 12. Dementia. This patient has been confused on and off. Will monitor. 13. Physical deconditioning. Continue physical therapy. 14. Iron deficiency anemia, status post iron treatment. Aware. 15. Chronic obstructive pulmonary disease, not in exacerbation. Aware. 16. History of peptic ulcer disease. Continue with PPIs. 17. History of bladder cancer, aware. His daughter is at the bedside. We need to talk to the social work faculty member about placement in the near future. Daughter, which apparently is the only family member in town, cannot take care of him at her house or this patient's house, for sure this patient cannot take care of himself. cc: Denny Dodge MD
--- NOTE | 2016-11-11 15:08 | PROGRESS NOTE ---
DATE: 11/11/2016 PRESENT ILLNESS: The patient has cellulitis involving his left heel. He also is admitted at this time with pneumonia in both lungs. MEDICATIONS: The patient is on a combination of Rocephin and azithromycin. PHYSICAL EXAMINATION: Vital Signs: Temperature is 98 degrees, pulse 57, respirations 20, blood pressure 91/58. Patient weighs 140 pounds. General: This is an ill-appearing, elderly male. He is in no acute distress. Thorax: Patient has an increased AP diameter of the chest. He has a right Port-A-Cath in place. The site is not erythematous. Lungs: Clear to auscultation. Cardiovascular: Heart tones were irregular. Abdomen: Soft and nontender. Extremities: The patient's left heel has an ulcerated area and it is erythematous. LABORATORY AND X-RAY: CBC today shows a white count of 11,120, hemoglobin 11.6, and platelet count 297,000. Creatinine is 1.5. The GFR is 44. CK is 126. ASSESSMENT AND PLAN: 1. The patient has pneumonia. The plan is to switch from Rocephin to cefepime and increase the dose of azithromycin. The patient also has cellulitis of the left heel. A culture has been ordered from the heel. The patient's antibiotics that he already is on hopefully will cover the organism isolated from culture of the heel. 2. Comorbidities: He is elderly. He no longer has edema in his legs. cc: Gurpreet Whitmore MD
[2016-11-11] MEDS: MAXIPIME 2 GM/NS 2 GM/100 ML IVPB IV SCH (16:41)
[2016-11-11] MEDS ORDERED: BROVANA NEB ONE (18:54)
[2016-11-11] MEDS: BROVANA NEB INH SCH (19:10)
[2016-11-11] MEDS: PRAVACHOL PO SCH (20:57)
[2016-11-11] MEDS: HALDOL IM PRN (23:31)
[2016-11-12] MEDS: DUONEB (A & A) INH SCH ×5 (03:39→21:58)
[2016-11-12] MEDS: MAXIPIME 2 GM/NS 2 GM/100 ML IVPB IV SCH ×2 (03:43→14:49)
[2016-11-12] MEDS: LOPRESSOR PO SCH ×4 (04:34→22:08)
[2016-11-12 05:48] LABS: CALCIUM 9.2 mg/dL (8.8-10.2); POTASSIUM 3.6 mmol/L (3.5-5.1)
[2016-11-12] MEDS: PRILOSEC PO SCH (06:33)
--- NOTE | 2016-11-12 07:00 | PROGRESS NOTE ---
DATE: 11/12/2016 PRESENT ILLNESS: The patient has a bilateral pneumonia and cellulitis involving his left heel. MEDICATION: I agreed with treating with azithromycin. Yesterday I substituted cefepime for Rocephin. This will be day 1 of both of those antibiotics together. PHYSICAL EXAMINATION: Vital Signs: Temperature is his 97.6, pulse 69, respirations 18, blood pressure 143/94. General: This is an ill-appearing, elderly male. He is in no acute distress. HEENT: Thorax- the patient has an increased AP diameter of the chest. In the right upper part of the chest a Port-A-Cath is in place. The site is not erythematous or swollen. Lungs: Clear to auscultation. Cardiovascular: Heart rate is irregular. Abdomen: Soft and nontender. Neurologic: The patient is arousable. He seems somewhat confused. He can move his extremities. LAB AND X-RAY: [place] [id number], hemoglobin 11.6, and platelet count 297,000. Today the patient's creatinine is 1.4. The GFR is 48. Blood cultures thus far are sterile. A culture taken from the patient's left heel wound by me yesterday is pending. ASSESSMENT AND PLAN: The patient has pneumonia and cellulitis. I plan to continue with cefepime and azithromycin pending culture results. I have ordered a Legionella urinary antigen and a pneumococcal urinary antigen. COMORBIDITIES: He is elderly and has COPD. cc: Gurpreet Whitmore MD MTDD
[2016-11-12] MEDS: BROVANA NEB INH SCH ×3 (07:13→21:34)
--- NOTE | 2016-11-12 09:01 | PROGRESS NOTE ---
DATE: 11/12/2016 CHIEF COMPLAINT: Shortness of breath. SUBJECTIVE: Mr. Jang is somewhat lethargic today. He is not in respiratory distress. He voices no complaints. He has some subtle asterixis. OBJECTIVE: Blood pressure is 102/65, temperature 97.5, pulse 81, respirations 25. He is elderly, appears to be ill chronically. HEENT is unremarkable. Chest: Diminished breath sounds at bases. Heart sounds are regular and rhythmic. I do not hear gallop or murmur. There are some extrasystoles. His abdomen is nontender. Extremities show decreased pulses, no edema. Neurologic: He is lethargic. He opens his eyes and answers with just a few words. DIAGNOSTIC DATA: Blood work today shows sodium 146, potassium 3.6, BUN is 34, creatinine 1.4. IMPRESSION: 1. The patient presented with congestive heart failure, both systolic and diastolic, probably related to a [id number] myocardial infarction. The patient does have coronary heart disease. 2. Radiographic evidence of pneumonitis versus pulmonary fibrosis. 3. History of hypertension. 4. History of paroxysmal atrial fibrillation. RECOMMENDATIONS: We will continue with general supportive care. The patient's overall prognosis appears to be guarded given his very poor functional status. Thank you again for the opportunity to participate in his evaluation. Best regards. cc: Vicente Mcclure MD
[2016-11-12] MEDS: FOLIC ACID PO SCH (10:56)
[2016-11-12] MEDS: ASPIRIN PO SCH (10:56)
[2016-11-12] MEDS: PREDNISONE PO SCH (10:56)
[2016-11-12] MEDS: UROXATRAL PO SCH (10:57)
[2016-11-12] MEDS: HEPARIN SUBQ SCH ×2 (10:57→21:34)
[2016-11-12] MEDS: KLOR-CON PO SCH (10:57)
[2016-11-12] MEDS: NEURONTIN PO SCH ×2 (10:58→17:31)
[2016-11-12] MEDS: LANOXIN IV SCH (10:58)
[2016-11-12] MEDS: SANTYL OINT TOP SCH (10:58)
[2016-11-12] MEDS: LASIX IV SCH ×2 (10:58→21:34)
[2016-11-12] MEDS: ZITHROMAX PO SCH (14:50)
--- NOTE | 2016-11-12 14:51 | PROGRESS NOTE ---
DATE: 11/12/2016 SUBJECTIVE: This patient is resting comfortably in the bed. He is still complaining of lower extremity pain/burning sensation. He is alert and oriented x2. No acute events overnight. OBJECTIVE: Vital Signs: Temperature 97.8 degrees, pulse 66, respiratory rate 15, blood pressure 134/67, oxygen saturation 100% on 4 L of nasal cannula. HEENT: Head normocephalic. No trauma. PERRLA. Neck: Supple. No JVD. No masses. Central trachea. Chest: Decreased breath sounds at the bases, with mild rhonchi bilaterally. Cardiovascular: Irregularly irregular rate and rhythm. Systolic murmur. Abdomen: Soft, nontender, nondistended. No hepatosplenomegaly. Extremities: No edema. No clubbing. No cyanosis. Chronic vascular changes versus infectious process. Neurological: The patient is alert and oriented x3. Increased sensation at the level of the lower extremities, mostly the anterior part of his shins. LABORATORY: Sodium 146, potassium 3.6, chloride 100, bicarbonate 30, BUN 34, creatinine 1.4, glucose 86, calcium 9.2. ASSESSMENT AND PLAN: 1. Acute coronary syndrome, non-ST elevation myocardial infarction. Cardiology Department following this patient closely. We will continue to follow their recommendations. 2. Congestive heart failure exacerbation, systolic and diastolic. Continue with the same management, diuresis. 3. Pneumonia, likely atypical. Infectious Disease Department evaluated this patient. We will continue with the same antibiotics. 4. Possible cellulitis. Continue with antibiotics. 5. Severe coronary artery disease, status post coronary artery bypass graft and positive enzymes. Aware. 6. History of hypertension. We will monitor. Stable. 7. Hyperlipidemia. Continue with home medication. 8. Peripheral vascular disease. Aware. 9. Hypernatremia. His sodium today is slightly elevated. We will increase the water intake for this patient. 10. Hypokalemia, resolved. 11. Paroxysmal atrial fibrillation. Continue with the same management for now. 12. Dementia. This patient has been confused, on and off. I had a conversation with the daughter a few days ago, and she is aware of this. 13. Physical deconditioning. Continue physical therapy. 14. Iron-deficiency anemia, status post iron treatment. Aware. 15. Chronic obstructive pulmonary disease, not in exacerbation. Aware. 16. History of peptic ulcer disease. Continue with proton pump inhibitors. 17. History of bladder cancer. Aware. I talked to the transition social worker today about this patient. Once this patient is better, we will need to find placement for him. He lives by himself, but, at this point, he cannot take care of himself. He has family members here in town, but also they cannot take care of him. CRITICAL CARE TIME: 35 minutes. cc: Denny Dodge MD
[2016-11-12] MEDS: PRAVACHOL PO SCH (21:34)
[2016-11-12] MEDS: HALDOL IM PRN (21:35)
[2016-11-12] MEDS: ULTRAM PO PRN (21:35)
[2016-11-13] MEDS: HALDOL IM PRN ×5 (03:36→22:02)
[2016-11-13] MEDS: MAXIPIME 2 GM/NS 2 GM/100 ML IVPB IV SCH ×2 (03:36→14:35)
[2016-11-13] MEDS: DUONEB (A & A) INH SCH ×4 (03:50→22:03)
[2016-11-13 05:50] LABS: CALCIUM 9.5 mg/dL (8.8-10.2); POTASSIUM 3.8 mmol/L (3.5-5.1)
[2016-11-13] MEDS: LOPRESSOR PO SCH ×4 (05:51→22:02)
[2016-11-13] MEDS: PRILOSEC PO SCH ×2 (05:51→06:33)
[2016-11-13] MEDS: ULTRAM PO PRN ×4 (07:47→22:19)
[2016-11-13] MEDS: KLOR-CON PO SCH (08:35)
[2016-11-13] MEDS: UROXATRAL PO SCH (08:36)
[2016-11-13] MEDS: PREDNISONE PO SCH (08:36)
[2016-11-13] MEDS: ZITHROMAX PO SCH (08:36)
[2016-11-13] MEDS: LASIX IV SCH (08:36)
[2016-11-13] MEDS: FOLIC ACID PO SCH (08:36)
[2016-11-13] MEDS: NEURONTIN PO SCH ×4 (08:36→22:02)
[2016-11-13] MEDS: ASPIRIN PO SCH (08:36)
[2016-11-13] MEDS: LANOXIN IV SCH (08:37)
[2016-11-13] MEDS: VITAMIN D PO SCH (08:42)
[2016-11-13] MEDS: SANTYL OINT TOP SCH (08:43)
[2016-11-13] MEDS: HEPARIN SUBQ SCH ×2 (08:43→22:02)
--- NOTE | 2016-11-13 08:59 | PROGRESS NOTE ---
DATE: 11/13/2016 PRESENT ILLNESS: The patient has a bilateral pneumonia. Also, he has cellulitis involving the left heel. MEDICATIONS: I agree with treating the patient with azithromycin. I substituted yesterday cefepime for Rocephin. This is day 2 of both antibiotics. PHYSICAL EXAMINATION: Vital Signs: Temperature is 97 degrees, pulse 74, respirations 28, blood pressure 119/66. General: This is a chronically ill-appearing, confused, elderly male. He is in no acute distress. Thorax: Patient has an increased AP diameter of the chest. The patient has a right upper chest Port-A-Cath in place. Lungs: Clear to auscultation. Cardiovascular: Irregular heart rate. Abdomen: Soft and nontender. LAB AND X-RAY: Culture taken from the patient's left heel where the wound is growing methicillin- resistant Staphylococcus aureus. ASSESSMENT AND PLAN: The patient has pneumonia and cellulitis. I plan to continue both the cefepime and azithromycin. I have ordered vancomycin to be started. The patient has cellulitis. He is being treated with a combination of cefepime and azithromycin. Legionella urinary antigen and pneumococcal urinary antigen values are both not returned yet. I have started the patient on daptomycin for the leg infection. I am going to continue going with cefepime and azithromycin. COMORBIDITIES: The patient is elderly and has COPD. cc: Gurpreet Whitmore MD
--- NOTE | 2016-11-13 09:27 | Diag Imaging Result Doc PS360 ---
FOOT COMPLETE LEFT - 11/13/2016 INDICATION: osteomyelitis TECHNIQUE: Three views COMPARISON: None FINDINGS: Positioning is improper. No obvious fractures or large bony erosions. IMPRESSION: No acute disease. Electronically signed by Jesus Segundo 11/13/2016 9:24 AM
[2016-11-13] MEDS: BROVANA NEB INH SCH ×2 (09:31→22:03)
[2016-11-13] MEDS: CUBICIN 350 MG in NS 100 ML IV SCH (10:25)
[2016-11-13] MEDS: CALMOSEPTINE OINTMENT TOP PRN (10:26)
--- NOTE | 2016-11-13 10:41 | PROGRESS NOTE ---
DATE: 11/13/2016 ADDENDUM: A culture from the patient's left heel is growing methicillin-resistant Staphylococcus aureus. Blood cultures are negative. Because of the worry of osteomyelitis, I have ordered an x- ray and bone scan of the patient's foot. cc: Gurpreet Whitmore MD
--- NOTE | 2016-11-13 13:45 | PROGRESS NOTE ---
DATE: 11/13/2016 SUBJECTIVE: This patient is resting comfortably in bed. He is oriented just to person. He is still complaining of lower extremity pain but compared with yesterday he seems to be better. No acute events overnight. He looks more confused today. OBJECTIVE: Vital Signs: Temperature 97 degrees, pulse 77, respiratory rate 22, blood pressure 119/66, oxygen saturation 98 on 2 L of nasal cannula. HEENT: Head normocephalic. No trauma. PERRLA. Neck: Supple. No JVD. No masses. Central trachea. Chest: Decreased breath sounds at the bases with mild rhonchi bilaterally. Cardiovascular: Irregularly irregular rate and rhythm. Systolic murmur. Abdomen: Soft, nontender, nondistended. No hepatosplenomegaly. Extremities: No edema. No clubbing. No cyanosis. He has a lesion on 1 of his toes and also he has cellulitis involving the left heel. Neurological: This patient is alert and oriented x1. He is confused. He moves all 4 extremities. LABORATORY: Sodium 148, potassium 3.8, chloride 100, bicarbonate 28, BUN 41, creatinine 1.5, glucose 95, calcium 9.5. ASSESSMENT AND PLAN: 1. Acute coronary syndrome, [id number] myocardial. Cardiology department is following this patient closely. We will continue to follow their recommendations. No acute intervention at this moment, just medical treatment. 2. Congestive heart failure, systolic and diastolic. I have stopped the furosemide IV and I placed this patient on p.o. medication. 3. Pneumonia, likely atypical. Infectious disease department is on board. We will continue to monitor. 4. Left heel cellulitis with positive culture for methicillin-resistant Staphylococcus aureus. Continue with antibiotics as per infectious disease department. 5. Severe coronary artery disease status post coronary artery bypass graft and positive enzymes. Aware. 6. History of hypertension. Stable. 7. Hyperlipidemia. Continue with home medication. 8. Peripheral vascular disease. Aware. 9. Hypernatremia. We will continue with free water intake every 2-3 hours. 10. Hypokalemia. Resolved. 11. Paroxysmal atrial fibrillation. Continue with the same management for now. 12. Dementia. This patient has been confused on and off. I had a conversation with the daughter a few days ago and she is aware of this. 13. Physical deconditioning. Continue physical therapy. 14. Iron deficiency anemia status post iron treatment. Aware. 15. Chronic obstructive pulmonary disease. Not in exacerbation. Aware. 16. History of peptic ulcer disease. Continue with PPIs. 17. History of bladder cancer. Aware. 18. Do Not Resuscitate level 1. I have been talking to the clinical social work therapist. If this patient gets better he will need to go to a group home facility. He lives by himself and at this point he cannot take care of himself. He has family members here in town but they also cannot take care of him. He has a poor prognosis given all of his comorbidities. cc: Denny Dodge MD
--- NOTE | 2016-11-13 15:37 | Diag Imaging Result Doc PS360 ---
EXAM: 3 PHASE BONE SCAN HISTORY: osteomyelitis TECHNIQUE: 27.7 mCi MDP administered COMPARISON: None. FINDINGS: Three phase bone scan with coned down images over the ankles and feet. There is fairly symmetrical activity within the ankles and feet on the immediate blood flow images. Mild generalized increased activity in the mid right foot and toes on the five, 10, and 15 minute delayed images. Activity is actually more pronounced about the left ankle on the three-hour delayed images. IMPRESSION: No evidence of osteomyelitis. Electronically signed by Dexter Harris 11/13/2016 3:35 PM
[2016-11-13] MEDS: PRAVACHOL PO SCH (22:02)
[2016-11-14] MEDS: MAXIPIME 2 GM/NS 2 GM/100 ML IVPB IV SCH ×2 (03:22→14:28)
[2016-11-14] MEDS: DUONEB (A & A) INH SCH ×4 (03:41→22:01)
[2016-11-14] MEDS: PRILOSEC PO SCH ×2 (05:32→06:06)
[2016-11-14] MEDS: LOPRESSOR PO SCH ×4 (05:32→22:01)
[2016-11-14 06:07] LABS: CALCIUM 8.6 mg/dL (8.8-10.2); POTASSIUM 3.8 mmol/L (3.5-5.1)
[2016-11-14] MEDS: ULTRAM PO PRN ×2 (06:41→16:45)
--- NOTE | 2016-11-14 07:05 | PROGRESS NOTE ---
DATE: 11/14/2016 PRESENT ILLNESS: The patient has bilateral pneumonia. He also has cellulitis involving his left heel. MEDICATIONS: The patient is on cefepime and azithromycin. This is day 3 for both antibiotics. Also, yesterday I started daptomycin because of the methicillin-resistant Staphylococcus aureus infection in the patient's left heel. PHYSICAL EXAMINATION: Vital Signs: Temperature is 97.5 degrees, pulse 77, respirations 16, blood pressure 116/92. General: This patient appears to be in a delirium. He does not respond to verbal stimuli. He is not coughing. He is in no acute distress. Generally, the patient also looks chronically ill. Lungs: Clear to auscultation. Cardiovascular: Heart rate is irregular. Thorax: Increased AP diameter of the chest. The patient has a right upper chest Port-A-Cath. The site is not erythematous or swollen. Abdomen: Soft and nontender. LAB AND X-RAY: The patient's x-ray of the left foot and also the bone scan of the left foot did not show any evidence of osteomyelitis. The culture from the heel is growing methicillin- resistant Staphylococcus aureus as mentioned above. The patient's creatinine is 1.5. The GFR is 44. ASSESSMENT AND PLAN: Patient has pneumonia and cellulitis. I plan to continue cefepime, azithromycin, and daptomycin. I have ordered a CBC for today, and I am awaiting the results of the Legionella urinary antigen and a pneumococcal urinary antigen. I look further now and both urinary antigens are back. The Legionella urinary antigen is negative and the pneumococcal urinary antigen is also negative. COMORBIDITIES: Include he is very elderly. He has COPD also and he appears now to be malnourished. cc: Gurpreet Whitmore MD
[2016-11-14 07:08] LABS: BASO% 0.3 % (0.0-0.8); EOS# 0.21 X1000 (0.0-0.7); EOS% 1.5 % (0.0-10.0); HEMATOCRIT 37.4 % (42.0-52.0); HEMOGLOBIN 11.8 g/dL (14.0-18.0); IMM GRAN# 0.21 X1000 (0.0-0.04); IMM GRAN% 1.5 % (0.0-0.5); LYMPH# 0.76 X1000 (1.2-3.4); LYMPH% 5.5 % (20.5-51.1); MANUAL DIFF NEEDED? NO; MCH 30.1 PG (27-31); MCHC 31.6 g/dL (33-37); MCV 95.4 FL (81-99); MONO# 1.36 X1000 (0.11-0.59); MONO% 9.9 % (1.7-9.3); MPV 10.8 FL (7.4-10.4); NEUT% 81.3 % (42.2-75.2); PLT 258 X1000 (130-400); RBC 3.92 XMIL (4.7-6.1)
[2016-11-14] MEDS: ZITHROMAX PO SCH (08:56)
[2016-11-14] MEDS: FOLIC ACID PO SCH (08:56)
[2016-11-14] MEDS: PREDNISONE PO SCH (08:56)
[2016-11-14] MEDS: KLOR-CON PO SCH (08:56)
[2016-11-14] MEDS: NEURONTIN PO SCH ×3 (08:56→16:45)
[2016-11-14] MEDS: ASPIRIN PO SCH (08:57)
[2016-11-14] MEDS: LASIX PO SCH (08:57)
[2016-11-14] MEDS: HEPARIN SUBQ SCH ×2 (08:57→22:01)
[2016-11-14] MEDS: UROXATRAL PO SCH (08:57)
[2016-11-14] MEDS: SANTYL OINT TOP SCH (08:57)
[2016-11-14] MEDS: LANOXIN IV SCH (08:57)
[2016-11-14] MEDS: CUBICIN 350 MG in NS 100 ML IV SCH (09:29)
[2016-11-14] MEDS: BROVANA NEB INH SCH ×2 (09:47→20:06)
--- NOTE | 2016-11-14 11:18 | PROGRESS NOTE ---
DATE: 11/14/2016 SUBJECTIVE: Patient is resting comfortable in bed as per nursing staff. He is not oriented and a little bit more confused today. Upon my examination today, he is awake but he does not or he cannot talk to me. No acute events overnight as per nursing staff. OBJECTIVE: Vital Signs: Temperature 97.6 degrees, heart rate 70, respiratory rate 18, blood pressure 109/65, O2 saturation 98% on room air. General Examination: This is a chronically ill- looking and frail, 86-year-old, male, lying in bed, in no acute distress. HEENT: Head is normocephalic and atraumatic. Anicteric sclerae and pale conjunctivae. Mucous membranes moist. Neck: Supple. No JVD noted. No carotid bruits. No lymphadenopathy. No thyromegaly. Cardiovascular Examination: Irregularly irregular heart rhythm. Systolic murmur noted in the aortic area. Respiratory Examination: Decreased breath sound at the bases and mild rhonchi bilaterally. Abdomen: Soft, nontender to palpation. Nondistended. Bowel sounds present. No organomegaly. Extremities: No clubbing, cyanosis, or edema. The patient had a lesion in both heels which are covered by dressings. Neurological Examination: Patient is awake but does not follow commands. He does not talk. He is confused. Moves 4 extremities. Laboratory Data: White cell count 13.71, hemoglobin 11.8, hematocrit 37.4, platelets 258,000. BMP is remarkable for creatinine 1.5 with BUN 49 and sodium 146. ASSESSMENT AND PLAN: 1. Acute coronary syndrome with non-ST elevation myocardial infarction. Cardiology is following this patient. They recommend medical treatment only. We will follow recommendations. 2. Congestive heart failure, systolic and diastolic. The patient currently is on furosemide orally. We will continue with the same management. Physical examination did not disclose any signs of volume overload. 3. Atypical pneumonia. Dr. Whitmore is following this patient. Currently, this patient is on daptomycin, azithromycin, and cefepime. 4. Left heel cellulitis secondary to methicillin-resistant Staphylococcus aureus infection. The patient has been started on daptomycin. We will see for how long this patient needs to be on antibiotics. 5. Severe coronary artery disease, status post coronary artery bypass graft. Aware. 6. Hypertension. That condition is stable. We will continue home medications. 7. Hyperlipidemia, aware. We will continue home medications. 8. Peripheral vascular disease, stable. Patient is not complaining of any pain right now. 9. Hypernatremia. The sodium is a little bit better. We will continue with the same management. 10. Paroxysmal atrial fibrillation. We will continue with the same management. 11. Advanced dementia. Confusion in this patient is on and off as per previous records. At this point, this patient is more confused. Family has been informed about this finding. 12. Physical deconditioning. The patient is being evaluated by physical therapy. 13. Iron deficiency anemia, aware. 14. Chronic obstructive pulmonary disease. Patient is not in any exacerbation. We will provide nebulizers as needed for shortness of breath. 15. History of peptic ulcer disease, aware. We will continue with Protonix. 16. Code status. [id number] level 1. We have talked with the social service agency director. The plan apparently is to send this patient to a more permanent facility like a group home. Patient will need daptomycin for methicillin-resistant Staphylococcus aureus infection. We will check with Dr. Whitmore for the length of treatment for this infection and also the length of treatment for pneumonia as well. I think when we figure out this, I guess this patient can be discharged. Patient is not spiking any fever. Apparently, the family is not able to take care of this patient anymore. cc: Aristeo Barriga MD
[2016-11-14] MEDS ORDERED: HALDOL ONE (18:33)
[2016-11-14] MEDS: HALDOL IV PRN ×2 (18:35→22:00)
[2016-11-14] MEDS: PRAVACHOL PO SCH (22:01)
[2016-11-15] MEDS: TYLENOL PR PRN
[2016-11-15] MEDS: MAXIPIME 2 GM/NS 2 GM/100 ML IVPB IV SCH ×2 (03:37→15:52)
[2016-11-15] MEDS: DUONEB (A & A) INH SCH ×4 (03:54→21:30)
[2016-11-15] MEDS: PRILOSEC PO SCH (06:08)
[2016-11-15] MEDS: LOPRESSOR PO SCH ×3 (06:08→17:45)
[2016-11-15] MEDS: BROVANA NEB INH SCH ×2 (09:45→20:25)
[2016-11-15] MEDS: ZITHROMAX PO SCH (09:59)
[2016-11-15] MEDS: NEURONTIN PO SCH ×3 (09:59→17:46)
[2016-11-15] MEDS: PREDNISONE PO SCH (10:00)
[2016-11-15] MEDS: LASIX PO SCH (10:00)
[2016-11-15] MEDS: KLOR-CON PO SCH (10:00)
[2016-11-15] MEDS: ASPIRIN PO SCH (10:00)
[2016-11-15] MEDS: FOLIC ACID PO SCH (10:00)
[2016-11-15] MEDS: LANOXIN IV SCH (10:02)
[2016-11-15] MEDS: HEPARIN SUBQ SCH (10:03)
[2016-11-15] MEDS: SANTYL OINT TOP SCH (10:07)
[2016-11-15] MEDS: UROXATRAL PO SCH (10:07)
[2016-11-15] MEDS: CUBICIN 350 MG in NS 100 ML IV SCH (10:08)
[2016-11-15] MEDS: NS 1,000 ML IV SCH (15:51)
--- NOTE | 2016-11-15 16:04 | PROGRESS NOTE ---
DATE: 11/15/2016 SUBJECTIVE: Patient as per nursing staff was combative and restless. Upon my examination this morning, he was more calmed down. Awake, but does not follow commands. Does not talk to me. OBJECTIVE: Vital Signs: Temperature 99.2 degrees, heart rate 89, respiratory rate 14, blood pressure 115/57, O2 saturation 95% 2 L nasal cannula. General: This is a chronically ill- appearing and frail 86-year-old male, lying in bed in no acute distress. HEENT: Head is normocephalic, atraumatic. Anicteric sclerae and pale conjunctivae. Mucous membranes moist. Neck: Supple. No JVD noted. No carotid bruits. No lymphadenopathy. No thyromegaly. Cardiovascular: Irregularly irregular heart rhythm. Systolic murmur noted in the aortic area. Respiratory: Decreased breath sounds globally. Mild rhonchi and coarse breath sounds in both bases. The patient is not using any accessory muscles or having work of breathing. Abdomen: Soft, nontender to palpation. Bowel sounds present. No organomegaly. Extremities: No clubbing, cyanosis, or edema. Patient had a lesion in both heels which are covered by dressing. Neurological: Patient is awake, but does not follow commands. Does not want to talk. Moves 4 extremities spontaneously. LABORATORY DATA: No labs from today. ASSESSMENT AND PLAN: 1. Acute coronary syndrome. Patient had [id number] myocardial infarction. Cardiology following. The patient is going to have medical treatment only. They are not planning to do any aggressive treatment with left heart catheterization. 2. Congestive heart failure. Systolic and diastolic. The patient is on furosemide orally. That has been switched from IV 2 days ago. Patient does not look to be in any CHF exacerbation at this time. 3. Atypical pneumonia. Dr. Whitmore from Infectious Disease is following this patient. He is on daptomycin, azithromycin and cefepime. 4. Left heel cellulitis secondary to MRSA. Patient has been started on daptomycin. We will see how long this patient needs to be on those antibiotics. 5. Severe coronary artery disease, status post coronary artery bypass graft . Aware. 6. Hypertension. By now, the blood pressure is well controlled. We will continue with the same management. 7. Hyperlipidemia. We will continue with the same medication. 8. Peripheral vascular disease is stable. Patient is not complaining of any pain right now. 9. Peripheral vascular disease. Stable. Patient is not complaining of any pain right now. 10. Hypernatremia. We have not checked labs today. We are going to do it tomorrow, but I think this hypernatremia could be because of the dehydration. He is going to be on normal saline at 75 mL/hour. 11. Advanced dementia. Confusion is on and off according to previous records. No this point, patient is somewhat confused and does not want to talk. I think that is part of dementia. We will continue with the same management. 12. Physical deconditioning and Physical Therapy is evaluating this patient. 13. Iron-deficiency anemia, aware. 14. Chronic obstructive pulmonary disease. Patient is not in any exacerbation. We will continue providing breathing treatments as needed for shortness of breath. 15. Code status. Do Not Resuscitate, level 1. 16. Disposition. The plan, we have talked over this with child welfare social worker. He is to send him to a more permanent facility like a care home. We are waiting for them to find a bed. 17. Patient medically stable. cc: Aristeo Barriga MD
[2016-11-16] MEDS: DUONEB (A & A) INH SCH ×4 (03:46→21:50)
[2016-11-16] MEDS: MAXIPIME 2 GM/NS 2 GM/100 ML IVPB IV SCH (04:31)
[2016-11-16] MEDS: NS 1,000 ML IV SCH ×2 (06:31→22:35)
[2016-11-16] MEDS: LOPRESSOR PO SCH ×4 (07:40→17:35)
[2016-11-16] MEDS: PRAVACHOL PO SCH ×2 (07:40→22:47)
[2016-11-16] MEDS: PRILOSEC PO SCH (07:41)
[2016-11-16] MEDS: HEPARIN SUBQ SCH ×3 (08:03→22:44)
[2016-11-16] MEDS: BROVANA NEB INH SCH ×2 (09:04→19:55)
[2016-11-16] MEDS: HALDOL IV PRN (09:32)
[2016-11-16] MEDS: LANOXIN IV SCH (09:35)
[2016-11-16] MEDS: CUBICIN 350 MG in NS 100 ML IV SCH (10:00)
[2016-11-16] MEDS: ASPIRIN PO SCH (13:51)
[2016-11-16] MEDS: ZITHROMAX PO SCH (13:52)
[2016-11-16] MEDS: UROXATRAL PO SCH (13:52)
[2016-11-16] MEDS: PREDNISONE PO SCH (13:52)
[2016-11-16] MEDS: KLOR-CON PO SCH (13:53)
[2016-11-16] MEDS: LASIX PO SCH (13:53)
[2016-11-16] MEDS: NEURONTIN PO SCH ×3 (13:53→17:35)
[2016-11-16] MEDS: FOLIC ACID PO SCH (13:54)
[2016-11-16] MEDS: SANTYL OINT TOP SCH (13:55)
[2016-11-16] MEDS: TYLENOL PR PRN ×2 (13:55→22:38)
[2016-11-16] MEDS: TEFLARO 600 MG in NS 250 ML IV SCH (17:54)
--- NOTE | 2016-11-16 17:59 | PROGRESS NOTE ---
DATE: 11/16/2016 PRESENT ILLNESS: The patient has bilateral pneumonia and a methicillin-resistant Staph aureus cellulitis of the left heel. MEDICATIONS: The patient is on a combination of daptomycin, azithromycin, and cefepime. PHYSICAL EXAMINATION: Vital Signs: Temperature is 100.3 degrees, pulse 102, respirations 22, blood pressure 153/84. General: This is an ill-appearing, elderly male who is delirious. Lungs: Clear to auscultation. Cardiovascular: Heart rate is regular. Abdomen: Soft and nontender. Left foot dressing is intact. PHYSICAL EXAMINATION: Vital Signs: Temperature is 100.3 degrees, pulse 102, respirations 22, blood pressure 153/84. General: This is a chronically ill-appearing, elderly male. He is obtunded. Lungs: Clear to auscultation. Cardiovascular: The heart rate is irregular. Abdomen: Soft and nontender. Thorax: Patient has an increased AP diameter of the chest. He also has a Port-A-Cath in the upper part of the right chest, the site is not erythematous or swollen. LAB AND X-RAY: CBC shows a white count of 13,710, hemoglobin 11.8, and platelet count 258,000. Creatinine is 1.5. GFR is 44. Culture from the left heel grew methicillin-resistant Staph aureus. ASSESSMENT AND PLAN: My plan is to discontinue azithromycin, cefepime and daptomycin, and start the patient on ceftaroline. I have ordered a chest x-ray to be done on November 19 of this year. cc: Gurpreet Whitmore MD
--- NOTE | 2016-11-16 18:17 | PROGRESS NOTE ---
DATE: 11/16/2016 SUBJECTIVE: Patient continues to be more lethargic. He is easily arousable but he does not talk and he does not follow commands. OBJECTIVE: Vital Signs: Temperature 100.3 degrees, heart rate 102, respiratory rate 22, blood pressure 153/84, O2 saturation 92% on 2 L nasal cannula. General Examination: This is a chronically ill-looking and frail, 86-year-old male, lying in bed, in no acute distress. HEENT: Head is normocephalic, atraumatic. Anicteric sclerae and pale conjunctivae. Mucous membranes dry. Neck: Supple. No JVD noted. No carotid bruits. No lymphadenopathy. No thyromegaly. Cardiovascular Examination: Irregularly irregular heart rhythm. Systolic murmur noted in the aortic area radiating to the neck. Respiratory: Decreased breath sounds globally with mild rhonchi and coarse breath sounds present in both bases unchanged in comparing with previous days. Patient is not using any accessory muscles or having work of breathing. Abdomen: Soft, nontender to palpation. Bowel sounds present. No organomegaly. Extremities: No clubbing, cyanosis, or edema. The patient had a lesion in both heels which are covered by dressing. Neurological: Patient is now sleepy. He does not follow commands but responds to verbal stimuli. Moves 4 extremities spontaneously. LABORATORY DATA: No labs from today. ASSESSMENT AND PLAN: 1. Acute coronary syndrome. Patient had a non ST-segment elevation myocardial infarction. Cardiology is following. They said that they are not going to do any aggressive treatment like left heart catheterization so, they will recommend medical treatment only. Now he is not complaining of any chest pain. 2. Congestive heart failure. Systolic and diastolic. Patient is on furosemide orally and he has been switched from IV furosemide 3 days ago. He does not look to be in any exacerbation. At this point, we will continue with the same management. 3. Atypical pneumonia. Patient is on daptomycin, azithromycin and cefepime. Dr. Whitmore is following this patient. 4. Left heel cellulitis likely secondary to MRSA. Patient is on daptomycin for both pneumonia and left heel cellulitis. Patient started spiking fever, so we have ordered another set of 2 blood cultures. In the meantime we are going to continue with the same antibiotic management. We will see what that blood culture shows. If patient continues to spike fever for 48 hours we will consider definitely to switch antibiotics. 5. Severe coronary artery disease. Status post CABG. Aware. 6. Hypertension. Blood pressure is under control with most of the time blood pressure runs between 140s and 150. We will continue with same management. 7. Hyperlipidemia. We will continue home medications. 8. Peripheral vascular disease. The patient not complaining of any lower extremity pain. We will continue home medications. 9. Hypernatremia. We are going to check BMP tomorrow. 10. Advanced dementia. Patient is still confused. I guess this is worsened dementia multifactorial because of the recent [place] and also congestive heart failure and pneumonia as well that is making this dementia worse. 11. Physical deconditioning. Physical therapy has been consulted but this patient is not participating. 12. Iron-deficient anemia. Aware. Hemoglobin stable. 13. COPD. Patient is not on any exacerbation. We will continue providing breathing treatments as needed for shortness of breath. 14. Code status. DNR level 1. 15. Disposition. Initially we were planning to send this patient to a permanent fdc but considering that this patient started spiking fever, I prefer to keep him over the weekend, check blood cultures, switch antibiotics if needed if the patient continues to have high blood pressure for 48 hours. Otherwise we will continue watching this patient closely here in the hospital. cc: Aristeo Barriga MD
[2016-11-17] MEDS: DUONEB (A & A) INH SCH ×4 (03:30→22:48)
[2016-11-17] MEDS: LOPRESSOR PO SCH ×6 (04:30→22:27)
[2016-11-17] MEDS: TEFLARO 600 MG in NS 250 ML IV SCH ×2 (06:51→19:42)
[2016-11-17] MEDS: PRILOSEC PO SCH (07:02)
[2016-11-17 07:20] LABS: BASO% 0.2 % (0.0-0.8); EOS# 0.05 X1000 (0.0-0.7); EOS% 0.3 % (0.0-10.0); HEMATOCRIT 39.3 % (42.0-52.0); IMM GRAN# 0.08 X1000 (0.0-0.04); IMM GRAN% 0.4 % (0.0-0.5); LYMPH% 4.8 % (20.5-51.1); MANUAL DIFF NEEDED? YES; MCH 29.9 PG (27-31); MCHC 30.5 g/dL (33-37); MCV 97.8 FL (81-99); MONO# 1.65 X1000 (0.11-0.59); MONO% 8.8 % (1.7-9.3); MPV 10.5 FL (7.4-10.4); NEUT% 85.5 % (42.2-75.2); PLT 194 X1000 (130-400); RBC 4.02 XMIL (4.7-6.1)
[2016-11-17 07:36] LABS: CALCIUM 8.7 mg/dL (8.8-10.2); POTASSIUM 3.1 mmol/L (3.5-5.1)
[2016-11-17 07:47] LABS: BANDS 2 % (0-1); EOS 2 % (1-10); LYMPHS 4 % (21-51); MONO 2 % (1-9)
[2016-11-17] MEDS ORDERED: BROVANA NEB ONE (08:29)
[2016-11-17] MEDS: LANOXIN IV SCH (10:48)
[2016-11-17] MEDS: KLOR-CON PO SCH (10:49)
[2016-11-17] MEDS: UROXATRAL PO SCH (10:49)
[2016-11-17] MEDS: FOLIC ACID PO SCH (10:49)
[2016-11-17] MEDS: LASIX PO SCH (10:49)
[2016-11-17] MEDS: PREDNISONE PO SCH (10:49)
[2016-11-17] MEDS: ASPIRIN PO SCH (10:51)
[2016-11-17] MEDS: HEPARIN SUBQ SCH ×2 (10:52→22:22)
[2016-11-17] MEDS: HALDOL IV PRN (10:52)
[2016-11-17] MEDS: NEURONTIN PO SCH ×3 (10:52→18:06)
[2016-11-17] MEDS: BROVANA NEB INH SCH ×2 (11:18→22:48)
[2016-11-17] MEDS: NS 1,000 ML IV SCH (12:43)
[2016-11-17] MEDS: SANTYL OINT TOP SCH (12:43)
[2016-11-17] MEDS ORDERED: MERREM 1 GM in NS 50 ML IV SCH (14:30)
--- NOTE | 2016-11-17 17:31 | PROGRESS NOTE ---
DATE: 11/17/2016 SUBJECTIVE: Patient is still the same in compared with the 3, 4 days lethargic, sometimes he is arousable, does not talk, does not follow commands. OBJECTIVE: Vital Signs: Temperature 98.7 degrees, heart rate 86, respiratory rate 16, blood pressure 161/68, O2 saturation 93% on 3 L nasal cannula. General Examination: This is a chronically ill-looking and frail 86-year-old male lying in bed in no acute distress. HEENT: Head is normocephalic, atraumatic. Neck: Supple. No JVD noted. No carotid bruits. No lymphadenopathy. No thyromegaly. Cardiovascular: Regular and irregular heart rhythm, systolic murmur noted in aortic area radiating to neck intensity 3/. Respiratory: Decreased breath sounds globally with mild rhonchi and coarse breath sounds in both bases same in comparing with previous days. Patient not using any accessory muscles or having work of breathing. Abdomen: Soft, nontender to palpation. Bowel sounds present. No organomegaly. Extremities: No clubbing, cyanosis, or edema. Peripheral pulses present both legs. Patient had a lesion both heels which are covered by dressing. Neurologic: Patient is sleepy, does not follow commands, apparently moves 4 extremities continuously. LABORATORY DATA: White cell count 18.78, hemoglobin 12.0, hematocrit 39.3, platelets 194,000. BMP remarkable for potassium 3.1, chloride 124, BUN 38 and creatinine 1.2. ASSESSMENT AND PLAN: 1. Metabolic encephalopathy that is most likely secondary to dehydration. Sodium is very high 156 so we are going to start 150 mL per hour and recheck BMP tomorrow. 2. Acute coronary syndrome. The patient had a non ST-segment elevation myocardial infarction. Cardiology is following this patient but as we mentioned before they are not going to do any aggressive treatment. They recommend medical management only. Will follow recommendation. 3. Congestive heart failure systolic and diastolic. Patient was on furosemide IV and now is on oral furosemide. Although this condition is stable will definitely need to provide more fluid so in case this patient get volume overload will need to restart furosemide. 4. Atypical pneumonia. The patient is on antibiotics as per Dr. Whitmore. 5. Left heel cellulitis secondary to methicillin-resistant Staphylococcus aureus. Patient was initially on daptomycin, cefepime and azithromycin. Because this patient started spiking fever from yesterday and now today on Dr. Whitmore stopped all antibiotics and started on ceftaroline because of history of MRSA infection. Will see how this patient does. If tomorrow he continues to have fever we may need to add a 2nd antibiotic. 6. Severe coronary artery disease status post coronary artery bypass graft aware. Patient not complaining of any chest pain. 7. Hypertension. Blood pressure is well controlled and will continue with the same management. 8. Hyperlipidemia. Will continue home medications. 9. Peripheral vascular disease. Patient is not complaining of any lower extremity pain. Will continue with home medications. 10. Advanced dementia. Patient is still confused and definitely because of many medical conditions going on this dementia definitely getting worse. 11. Physical deconditioning. Physical therapy trying to work with him but he is not cooperating at all. 12. Iron deficiency anemia. Hemoglobin stable so far. 13. Chronic obstructive pulmonary disease. Patient is not on exacerbation but will be given breathing treatment as needed for shortness of breath or drops on oxygen saturation. cc: Aristeo Barriga MD
[2016-11-17] MEDS: ULTRAM PO PRN (17:52)
[2016-11-17] MEDS: D5W 1,000 ML IV SCH (18:06)
[2016-11-17] MEDS: PRAVACHOL PO SCH ×2 (22:22→22:28)
[2016-11-18] MEDS: D5W 1,000 ML IV SCH ×3 (01:47→20:48)
[2016-11-18] MEDS: DUONEB (A & A) INH SCH ×4 (03:20→22:30)
[2016-11-18] MEDS: LOPRESSOR PO SCH ×3 (04:44→16:57)
[2016-11-18] MEDS: TEFLARO 600 MG in NS 250 ML IV SCH ×2 (05:56→18:36)
[2016-11-18] MEDS: PRILOSEC PO SCH (05:59)
[2016-11-18 07:44] LABS: BASO% 0.1 % (0.0-0.8); EOS# 0.04 X1000 (0.0-0.7); EOS% 0.3 % (0.0-10.0); HEMATOCRIT 32.8 % (42.0-52.0); HEMOGLOBIN 9.7 g/dL (14.0-18.0); IMM GRAN# 0.05 X1000 (0.0-0.04); IMM GRAN% 0.3 % (0.0-0.5); LYMPH# 0.64 X1000 (1.2-3.4); LYMPH% 4.1 % (20.5-51.1); MANUAL DIFF NEEDED? YES; MCHC 29.6 g/dL (33-37); MCV 98.2 FL (81-99); MONO# 1.24 X1000 (0.11-0.59); MONO% 7.9 % (1.7-9.3); MPV 11.1 FL (7.4-10.4); NEUT% 87.3 % (42.2-75.2); PLT 125 X1000 (130-400); RBC 3.34 XMIL (4.7-6.1)
[2016-11-18 07:47] LABS: CALCIUM 8.3 mg/dL (8.8-10.2)
[2016-11-18 08:14] LABS: BANDS 6 % (0-1); LARGE PLATELETS 1+; LYMPHS 6 % (21-51); MONO 2 % (1-9)
[2016-11-18] MEDS ORDERED: BROVANA NEB ONE (08:15)
[2016-11-18] MEDS: BROVANA NEB INH SCH ×2 (09:02→22:30)
[2016-11-18] MEDS: HEPARIN SUBQ SCH ×2 (09:12→20:48)
[2016-11-18] MEDS: LANOXIN IV SCH (09:12)
[2016-11-18] MEDS: PREDNISONE PO SCH (10:35)
[2016-11-18] MEDS: UROXATRAL PO SCH (10:35)
[2016-11-18] MEDS: ASPIRIN PO SCH (10:35)
[2016-11-18] MEDS: NEURONTIN PO SCH ×3 (10:35→16:56)
[2016-11-18] MEDS: KLOR-CON PO SCH (10:36)
[2016-11-18] MEDS: FOLIC ACID PO SCH (10:36)
[2016-11-18] MEDS: LASIX PO SCH (10:36)
[2016-11-18] MEDS ORDERED: POTASSIUM CHLORIDE 60 MEQ in NS 500 ML IV ONE (13:30)
--- NOTE | 2016-11-18 15:33 | PROGRESS NOTE ---
DATE: 11/18/2016 SUBJECTIVE: Patient continues to be lethargic. As per nursing staff, no acute issues overnight. OBJECTIVE: Vital Signs: Temperature 99.2 degrees, heart rate 77, respiratory rate 16, blood pressure 110/51, O2 saturation 91% on 3 L nasal cannula. General: This is a chronically ill- looking, malnourished and frail 86-year-old male lying in bed in no acute distress. HEENT: Head is normocephalic, atraumatic. Anicteric sclerae and pale conjunctivae. Mucous membranes moist. Neck: Supple. No JVD noted. No carotid bruits. No lymphadenopathy. No thyromegaly. Cardiovascular: S1, S2 heard. No murmurs, gallops, or rubs. Regular rate and rhythm. Respiratory: Breath sounds globally with mild rhonchi and coarse breath sounds that have been getting a little worse in comparing with the previous days. The patient is not using any accessory muscles or having work of breathing. Abdomen: Soft, nontender to palpation. Bowel sounds present. No organomegaly. Extremities: No clubbing, cyanosis, or edema. The patient at lesions on both heels which are covered by dressing. Peripheral pulses present in both legs, but faint. Neurological: Patient continues to be sleepy for last 3 days. Does not follow commands. Sometimes moves 4 extremities spontaneously. LABORATORY DATA: White cell count 15.68, hemoglobin 9.7, hematocrit 32.8, platelets 125,000. Sodium 154, potassium 3, chloride 119, bicarbonate 20, BUN 34, creatinine 1.2. ASSESSMENT AND PLAN: 1. Metabolic encephalopathy. Most likely secondary to dehydration. Sodium 166 yesterday and today 154. We will continue with D5W at 150 mL/hour. I understand that this is pretty much vigorous hydration, but I think this is one of the factors that is definitely playing a main role in the clinical situation of this patient. 2. Acute coronary syndrome. As we mentioned before, patient had a non ST-segment elevation myocardial infarction and Cardiology is following report. They are not going to do any aggressive treatment. 3. Congestive heart failure, systolic and diastolic. Patient is on furosemide p.o. We will continue with same management. 4. Atypical pneumonia. Patient is on antibiotics as per Dr. Whitmore. 5. Left heel cellulitis secondary to methicillin-resistant Staphylococcus aureus. The patient currently on vancomycin and ceftaroline which has been started by Dr. Whitmore 2 days ago when this patient started spiking fever while he was on vancomycin. In any case, we will continue with the same management. Patient is not spiking fever any more. We have ordered 2 sets of blood cultures which are not available at the time of dictation. 6. Hypertension, blood pressure is well controlled. We will continue with the same management. 7. Hyperlipidemia. We will continue we will continue home medications. 8. Peripheral vascular disease. The patient is not complaining of any pain now. We will continue with the same management. 9. Advanced dementia. The patient is confused this is because of many medical conditions that this making this dementia worse. In any case, I prefer to do a CT of the head with contrast to see there is any stroke that may have happened to him. 10. Physical deconditioning. Although physical therapy has been consulted and they are on board, the patient, of course, because of the clinical situation is not cooperating at all. 11. Iron deficiency anemia. Hemoglobin is stable so far. 12. Chronic obstructive pulmonary disease. Patient is not in any exacerbation. We will continue with nebulizations with Atrovent p.r.n. 13. Code status. Do Not Resuscitate, level 1. cc: Aristeo Barriga MD
[2016-11-18] MEDS: SANTYL OINT TOP SCH (16:56)
--- NOTE | 2016-11-18 17:17 | Diag Imaging Result Doc PS360 ---
EXAM: CT HEAD W/CONTRAST TECHNIQUE: Dose reduction protocol was used. INDICATION: lethargic for last 2 days COMPARISON: None. FINDINGS: There is extensive low-attenuation in the periventricular and subcortical white matter consistent with advanced microangiopathy. 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 There is no definite acute infarct given the limited sensitivity of CT versus MRI. There is no discrete intracranial mass, mass effect, or intracranial hemorrhage. The surrounding soft tissues and bony structures are essentially unremarkable. IMPRESSION: Advanced chronic changes as described but no definite acute intracranial pathology. Electronically signed by Conner Jimenez 11/18/2016 5:15 PM
[2016-11-18] MEDS: PRAVACHOL PO SCH (20:48)
[2016-11-19] MEDS: LOPRESSOR PO SCH ×5 (00:44→23:02)
[2016-11-19] MEDS: DUONEB (A & A) INH SCH ×3 (03:23→16:14)
[2016-11-19] MEDS: D5W 1,000 ML IV SCH ×4 (04:05→20:47)
[2016-11-19] MEDS: TEFLARO 600 MG in NS 250 ML IV SCH ×2 (05:12→19:03)
[2016-11-19] MEDS: PRILOSEC PO SCH (06:26)
[2016-11-19 06:55] LABS: MANUAL DIFF NEEDED? NO
[2016-11-19 07:05] LABS: BASO% 0.1 % (0.0-0.8); EOS% 1.9 % (0.0-10.0); HEMATOCRIT 30.5 % (42.0-52.0); HEMOGLOBIN 9.2 g/dL (14.0-18.0); IMM GRAN# 0.07 X1000 (0.0-0.04); IMM GRAN% 0.7 % (0.0-0.5); LYMPH# 0.67 X1000 (1.2-3.4); LYMPH% 6.3 % (20.5-51.1); MCH 29.4 PG (27-31); MCHC 30.2 g/dL (33-37); MCV 97.4 FL (81-99); MONO% 8.4 % (1.7-9.3); MPV 11.7 FL (7.4-10.4); NEUT% 82.6 % (42.2-75.2); PLT 125 X1000 (130-400); RBC 3.13 XMIL (4.7-6.1)
[2016-11-19 07:32] LABS: CALCIUM 7.5 mg/dL (8.8-10.2); POTASSIUM 3.4 mmol/L (3.5-5.1)
--- NOTE | 2016-11-19 08:26 | Diag Imaging Result Doc PS360 ---
CHEST-1 VIEW - 11/19/2016 INDICATION: pneumonia TECHNIQUE: COMPARISON: 11/07/2016 FINDINGS: Stable right chest port. Stable sternotomy wires. Stable cardiomegaly and pulmonary vascular congestion. Slight worsening in the extensive bilateral mixed, predominantly alveolar infiltrates. These appear nonspecific. IMPRESSION: Worsening bilateral infiltrates, indeterminate. Electronically signed by Jesus Segundo 11/19/2016 8:23 AM
[2016-11-19] MEDS ORDERED: BROVANA NEB ONE (10:19)
[2016-11-19] MEDS: BROVANA NEB INH SCH (10:24)
[2016-11-19] MEDS: HEPARIN SUBQ SCH ×2 (10:41→20:48)
[2016-11-19] MEDS: LANOXIN IV SCH (10:42)
[2016-11-19] MEDS: LASIX PO SCH ×2 (10:53→15:27)
[2016-11-19] MEDS: KLOR-CON PO SCH ×2 (10:53→15:26)
[2016-11-19] MEDS: ASPIRIN PO SCH ×2 (10:53→15:25)
[2016-11-19] MEDS: FOLIC ACID PO SCH ×2 (10:53→15:26)
[2016-11-19] MEDS: PREDNISONE PO SCH ×2 (10:54→15:28)
[2016-11-19] MEDS: NEURONTIN PO SCH ×4 (10:55→18:28)
[2016-11-19] MEDS: UROXATRAL PO SCH (10:56)
--- NOTE | 2016-11-19 11:27 | PROGRESS NOTE ---
DATE: 11/19/2016 PRESENT ILLNESS: The patient has bilateral pulmonary infiltrates that could be due to pulmonary venous congestion or infection, or a combination of both. The patient also has a methicillin- resistant Staphylococcus aureus cellulitis of the left heel. MEDICATIONS: This is the 3rd day of treatment with ceftaroline as a single agent. PHYSICAL EXAMINATION: Vital Signs: Temperature is 100 degrees, pulse 79, respirations 20, blood pressure 110/58. General: This is a chronically ill-appearing, elderly male. He is obtunded. He does not respond to verbal stimuli. Lungs: Clear to auscultation. Cardiovascular: Regular heart rate. Abdomen: Soft and not tender. Extremities: The left foot and ankle have a dressing on them. The dressing is intact. Chest: Portacath site not red or swollen. LAB AND X-RAY: Patient's CBC shows a white count of 10,680, hemoglobin 9.2, and platelet count 125,000. Chest x-ray shows worsening of the bilateral infiltrates. CT scan of the head showed advanced chronic changes and no acute disease. ASSESSMENT AND PLAN: The patient has possible pneumonia and a methicillin- resistant Staphylococcus aureus cellulitis of the left heel. My plan is to continue ceftaroline. This is the 3rd day of treatment with the antibiotic. COMORBIDITIES: He is very elderly and he has COPD also. cc: MD TOMAS Abbott
[2016-11-19] MEDS: SANTYL OINT TOP SCH (14:30)
[2016-11-19] MEDS ORDERED: LASIX IV ONE (17:34)
--- NOTE | 2016-11-19 18:11 | PROGRESS NOTE ---
DATE: 11/19/2016 SUBJECTIVE: Patient continues to be lethargic and does not follow any commands. Does not respond to verbal stimuli. As per nursing staff, no acute issues overnight. OBJECTIVE: Vital Signs: Temperature 99 degrees, heart rate 91, respiratory rate 20, blood pressure 86/59, O2 saturation 94% on 15 L Venturi mask. General: This is a chronically ill- looking man, frail, 86-year-old male, lying in bed, in no acute distress. HEENT: Head is normocephalic, atraumatic. Anicteric sclerae and pale conjunctivae. Mucous membranes moist. Neck: Supple. No JVD noted. No carotid bruits. No lymphadenopathy. No thyromegaly. Cardiovascular: S1, S2 heard. No murmurs, gallops, or rubs. Regular rate and rhythm. Respiratory: Decreased breath sounds globally with coarse breath sounds. That has been getting a little bit worse in comparing with previous days. Patient is not using any accessory muscles or having work of breathing. Abdomen: Soft. Bowel sounds present. No organomegaly. The. Extremities: No clubbing, cyanosis, or edema. Patient has both heels covered by dressing. Peripheral pulses present, but faint. Neurological: Patient continues to be lethargic, sometimes moves 4 extremities spontaneously, but definitely he does not follow commands. LABORATORY DATA: White cell count 10.68, hemoglobin 9.2, hematocrit 30.5, platelets 125,000. BMP shows sodium 147, potassium 3.4, chloride 114, bicarb 19, BUN 34, creatinine 1.3. ASSESSMENT AND PLAN: 1. Metabolic encephalopathy, multifactorial. Most likely secondary to dehydration and also to infection. Sodium was 158 two days ago and after we started this patient on D5W, sodium is progressively going down to 147 today. Patient is receiving 150 mL/hour of this fluid, so we will continue with the same management. We prefer to give 1 dose of Lasix to avoid any volume overload. 2. Atypical pneumonia. Patient on antibiotics per Dr. Whitmore. 3. Left heel cellulitis secondary to methicillin-resistant Staphylococcus aureus. Patient is on ceftaroline day #3 which has been started by Dr. Whitmore because this patient started spiking fever while he was on vancomycin. In any case, the fever has subsided. We will continue with the same management. Blood cultures are still negative. 4. Acute coronary syndrome. Patient has [id number] elevation myocardial infarction and Cardiology was following this patient at the beginning, but they are not going to do any aggressive treatment with him. 5. Congestive heart failure. Systolic and diastolic. The patient is on furosemide p.o. 60 mg daily. Because of the fact that this patient is receiving D5 normal saline to correct metabolic derangement, I am going to order one dose of Lasix 80 mg IV and we will go from there. 6. Hypertension, blood pressure is well controlled. We will continue with the same management. 7. Hyperlipidemia, we will continue home medications. 8. Peripheral vascular disease. Patient is not complaining of any pain now. We will continue with the same management. 9. Advanced dementia. 10. Condition is getting worse and is multifactorial, so yesterday because during the last 3 or 4 days the mental status was getting worse, we ordered a CT of the head with contrast and there was no stroke or anything that could explain his worsening mental status. I think this is multifactorial because of all medical conditions having been mentioned here. 11. Physical deconditioning. Aware. Although in his current situation, he is not a candidate for have any physical therapy. 12. Iron-deficiency anemia. Hemoglobin is stable. 13. Chronic obstructive pulmonary disease. Patient is not in any exacerbation. We will continue with nebulizations with Atrovent p.r.n. 14. Code status. Do Not Resuscitate level 1. cc: Aristeo Barriga MD
[2016-11-19 19:12] LABS: URINE CULTURE NEEDED? NO; URINE SOURCE CATH
[2016-11-19 19:19] LABS: BILIRUBIN URINE NEGATIVE (NEGATIVE); BLOOD URINE LARGE (NEGATIVE); COLOR YELLOW; GLUCOSE URINE NEGATIVE (NEGATIVE); LEUKOCYTES URINE NEGATIVE (NEGATIVE); NITRITE URINE NEGATIVE (NEGATIVE); PH URINE 5.5; PROTEIN URINE 70 mg/dL (NEGATIVE); SP GRAVITY URINE 1.016; TURBIDITY URINE HAZY (CLEAR); UROBILINOGEN URINE NORMAL (NORMAL)
[2016-11-19 19:28] LABS: UR EPITHELIAL CELLS <10 /HPF (<10); URINE BACTERIA NEGATIVE /HPF; URINE MICRO REVIEW NEEDED? YES; URINE WBC <10 /HPF (<10)
[2016-11-19 19:38] LABS: URINE CASTS NONE SEEN
[2016-11-19] MEDS: PRAVACHOL PO SCH ×2 (20:48→20:56)
[2016-11-20] MEDS: BROVANA NEB INH SCH ×3 (00:19→22:29)
[2016-11-20] MEDS: DUONEB (A & A) INH SCH ×5 (00:19→22:29)
[2016-11-20] MEDS: D5W 1,000 ML IV SCH ×3 (03:30→13:10)
[2016-11-20] MEDS: PRILOSEC PO SCH (06:07)
[2016-11-20] MEDS: LOPRESSOR PO SCH ×3 (06:07→23:04)
[2016-11-20] MEDS: TEFLARO 600 MG in NS 250 ML IV SCH ×2 (06:23→19:55)
[2016-11-20 06:43] LABS: MANUAL DIFF NEEDED? NO
[2016-11-20 06:59] LABS: BASO% 0.1 % (0.0-0.8); EOS# 0.19 X1000 (0.0-0.7); EOS% 1.6 % (0.0-10.0); HEMATOCRIT 30.2 % (42.0-52.0); HEMOGLOBIN 9.4 g/dL (14.0-18.0); IMM GRAN# 0.05 X1000 (0.0-0.04); IMM GRAN% 0.4 % (0.0-0.5); LYMPH# 0.88 X1000 (1.2-3.4); LYMPH% 7.4 % (20.5-51.1); MCHC 31.1 g/dL (33-37); MCV 93.2 FL (81-99); MONO# 0.92 X1000 (0.11-0.59); MONO% 7.8 % (1.7-9.3); MPV 11.7 FL (7.4-10.4); NEUT% 82.7 % (42.2-75.2); PLT 163 X1000 (130-400); RBC 3.24 XMIL (4.7-6.1)
[2016-11-20 07:39] LABS: AGAP 16; BUN 31 mg/dL (8-22); CALCIUM 7.8 mg/dL (8.8-10.2); CHLORIDE 105 mmol/L (98-107); COSMO 288; POTASSIUM 3.4 mmol/L (3.5-5.1); SODIUM 141 mmol/L (136-145); TCO2 20 mmol/L (25-35)
[2016-11-20] MEDS: LANOXIN IV SCH (08:28)
[2016-11-20] MEDS: HEPARIN SUBQ SCH ×2 (08:30→23:04)
[2016-11-20] MEDS: PREDNISONE PO SCH (08:32)
[2016-11-20] MEDS: NEURONTIN PO SCH ×3 (08:32→23:04)
[2016-11-20] MEDS: KLOR-CON PO SCH (08:32)
[2016-11-20] MEDS: LASIX PO SCH (08:32)
[2016-11-20] MEDS: ASPIRIN PO SCH (08:32)
[2016-11-20] MEDS: FOLIC ACID PO SCH (08:32)
[2016-11-20] MEDS: VITAMIN D PO SCH (08:33)
[2016-11-20] MEDS: UROXATRAL PO SCH (08:33)
--- NOTE | 2016-11-20 10:18 | PROGRESS NOTE ---
DATE: 11/20/2016 SUBJECTIVE: The patient definitely is more alert today. Able to talk to me. Still a little bit confused, but he reports breathing better. OBJECTIVE: Vital Signs: Temperature 97.4 degrees, heart rate 82, respiratory rate 24, blood pressure 121/84, O2 saturation 92% on room air. General Examination: This is a chronically ill- looking man, frail, 86-year-old male, lying in bed in no acute distress. HEENT: Head is normocephalic, atraumatic. Anicteric sclerae and pale conjunctivae. Mucous membranes moist. The patient is on Ventimask. Neck: Supple. No JVD noted. No carotid bruits. No lymphadenopathy. No thyromegaly. Cardiovascular exam: S1, S2 heard. No murmurs, gallops, or rubs. Regular rate and rhythm. Respiratory exam: Decreased breath sounds globally with some coarse breath sounds. That is the same in comparing with previous day. Patient is not using any accessory muscles or having work of breathing. Abdomen: Soft, nontender to palpation. Bowel sounds present. No organomegaly. Extremities: No clubbing, cyanosis, or edema. Peripheral pulses present in both legs. Neurological exam: Patient is alert, awake, moves 4 extremities. Does follow basic commands. LABORATORY DATA: White cell count 11.86, hemoglobin 9.4, hematocrit 30.2, platelets 163. The BMP is remarkable for potassium 3.4 and creatinine 1.1 with a BUN of 16. ASSESSMENT/PLAN: 1. Metabolic encephalopathy. That condition is multifactorial. This is getting better. I guess high sodium 158 three days ago and, after this, the patient was on D 5W. The sodium is final today 4141. At this time, we are going to definitely back up in the intravenous fluids and, at this point, we are going to reduce the rate to 75 mL/hour. 2. He received also 1 dose of Lasix for void volume overload. I guess this patient may need to have another dose of Lasix too. 3. Atypical pneumonia. The patient is on antibiotics per Dr. Whitmore. 4. Left heel cellulitis secondary to methicillin-resistant Staphylococcus aureus. Patient is on ceftaroline day four which had been started by Dr. Whitmore because while he was on daptomycin he was spiking fever. I think this patient is responding to that therapy and definitely more awake and alert, although still is sick. We will continue with the same management and blood cultures are still negative. 5. Acute coronary syndrome. Patient has had non ST-segment elevation myocardial infarction. The patient was being followed by cardiology. They said no aggressive treatment for him. 6. Congestive heart failure, systolic and diastolic. Patient was on furosemide daily, but because the patient is receiving D 5 normal saline to correct metabolic derangement, he received 80 mg intravenous yesterday. I think we will continue with the normal dose of Lasix today. 7. Hypertension. Blood pressure is well controlled. 8. Hyperlipidemia. Patient is on home medications. 9. Peripheral vascular disease. Patient is not complaining of any leg pain. Will continue with the same management. 10. Advanced dementia. This condition is getting a little bit better today. He is more alert and awake. A CT scan was done 2 days ago to see if there is any stroke or anything else that could explain this worsening mental status, but now as I mentioned before he is getting better. At this time, we will continue with the same antibiotic management. 11. Physical deconditioning. Now I think this patient we will be able to work. Physical therapy will put in an order today. 12. Iron deficiency anemia. Hemoglobin is stable, but will transfuse if hemoglobin drops to 7 or below. 13. Chronic obstructive pulmonary disease. The patient is not on any exacerbation. At this point, we will continue with the same management. 14. Code status. Do not resuscitate level 1. cc: Aristeo Barriga MD
[2016-11-20] MEDS ORDERED: BROVANA NEB ONE (10:19)
[2016-11-20] MEDS: SANTYL OINT TOP SCH (15:01)
[2016-11-20] MEDS: PRAVACHOL PO SCH (23:05)
[2016-11-21] MEDS: D5W 1,000 ML IV SCH ×2 (03:34→17:18)
[2016-11-21] MEDS: DUONEB (A & A) INH SCH ×4 (04:28→22:45)
[2016-11-21] MEDS: TEFLARO 600 MG in NS 250 ML IV SCH ×2 (06:01→17:19)
[2016-11-21] MEDS: LOPRESSOR PO SCH ×5 (06:14→22:45)
[2016-11-21] MEDS: PRILOSEC PO SCH (06:14)
[2016-11-21] MEDS: TYLENOL PR PRN (06:14)
[2016-11-21 07:39] LABS: BASO% 0.1 % (0.0-0.8); EOS# 0.17 X1000 (0.0-0.7); EOS% 1.3 % (0.0-10.0); HEMATOCRIT 30.4 % (42.0-52.0); HEMOGLOBIN 9.7 g/dL (14.0-18.0); IMM GRAN# 0.08 X1000 (0.0-0.04); IMM GRAN% 0.6 % (0.0-0.5); LYMPH# 0.79 X1000 (1.2-3.4); LYMPH% 5.9 % (20.5-51.1); MANUAL DIFF NEEDED? YES; MCH 29.2 PG (27-31); MCHC 31.9 g/dL (33-37); MCV 91.6 FL (81-99); MONO% 8.2 % (1.7-9.3); MPV 11.4 FL (7.4-10.4); NEUT% 83.9 % (42.2-75.2); PLT 213 X1000 (130-400); RBC 3.32 XMIL (4.7-6.1)
[2016-11-21] MEDS: BROVANA NEB INH SCH ×2 (07:54→22:45)
[2016-11-21 08:10] LABS: LYMPHS 5 % (21-51)
[2016-11-21] MEDS: LASIX PO SCH (10:19)
[2016-11-21] MEDS: NEURONTIN PO SCH ×3 (10:19→17:19)
[2016-11-21] MEDS: PREDNISONE PO SCH (10:19)
[2016-11-21] MEDS: UROXATRAL PO SCH (10:19)
[2016-11-21] MEDS: KLOR-CON PO SCH (10:20)
[2016-11-21] MEDS: FOLIC ACID PO SCH (10:20)
[2016-11-21] MEDS: LANOXIN IV SCH (10:20)
[2016-11-21] MEDS: ASPIRIN PO SCH (10:20)
[2016-11-21] MEDS: HEPARIN SUBQ SCH ×2 (10:20→22:45)
[2016-11-21] MEDS: SANTYL OINT TOP SCH (10:21)
[2016-11-21 15:04] LABS: AGAP 18; BUN 25 mg/dL (8-22); CALCIUM 7.8 mg/dL (8.8-10.2); CHLORIDE 101 mmol/L (98-107); COSMO 280; POTASSIUM 3.7 mmol/L (3.5-5.1); SODIUM 137 mmol/L (136-145); TCO2 18 mmol/L (25-35)
--- NOTE | 2016-11-21 15:19 | PROGRESS NOTE ---
DATE: 11/21/2016 SUBJECTIVE: The patient unfortunately is again more lethargic. He does not answer any questions. He does not answer to verbal stimuli. OBJECTIVE: Vital Signs: Temperature 97.7 degrees, heart rate 86, respiratory rate 16, blood pressure 109/49, O2 saturation 96% on Venturi mask 15 L. General Examination: This is a chronically ill-looking and frail, 86-year-old male, lying in bed, in no acute distress. HEENT: Head is normocephalic, atraumatic. Anicteric sclerae and pale conjunctivae. Mucous membranes dry. Neck: Supple. No JVD noted. No carotid bruits. No lymphadenopathy. No thyromegaly. Cardiovascular: S1, S2 heard. No murmurs, gallops, or rubs and regular rate and rhythm. Respiratory: There are decreased breath sounds globally with some coarse breath sounds same in comparing with yesterday. Patient is not using any accessory muscles or having work of breathing. Abdomen: Soft, nontender to palpation. Bowel sounds present. No organomegaly. Extremities: No clubbing, cyanosis, or edema. Peripheral pulses present in both legs. Neurological: Patient is lethargic. Does not follow any commands. He does not respond to verbal stimuli. LABORATORY DATA: White cell count 13.41, hemoglobin 9.7, hematocrit 30.4, platelets 213,000. BMP not available today. ASSESSMENT AND PLAN: 1. Metabolic encephalopathy that condition Today unfortunately, that is getting worse again. Sodium is getting better from yesterday. We do have results from BMP from today, but definitely should be fine. Yesterday sodium was 141. 2. Atypical pneumonia. Patient is under the care of Dr. Whitmore. 3. Left heel cellulitis secondary to MRSA infection. Patient is on ceftaroline, day #5. That medication was started because on daptomycin, the patient started spiking fever and since we switched antibiotics, fever has resolved. We will continue with the same management. 4. Acute coronary syndrome. Patient has had [id number] elevation myocardial infarction. Patient was being followed by Cardiology, but not aggressive treatment is the recommendation. 5. Congestive heart failure. Systolic and diastolic. The patient has been receiving plenty of fluids to try to correct hypernatremia. He has received Lasix yesterday and the day before. He does not sound clearly overloaded. In any case, the rate of IV fluids has dropped to 75 mL/hour. 6. Hypertension, blood pressure is under control. 7. Hyperlipidemia, patient is on home medication. 8. Peripheral vascular disease, aware. 9. Advanced dementia. Of course, this condition is getting worse today. We have checked a CT scan of the head because his condition what was actually the same. This condition today is getting worse. He is more confused. More lethargic. He has been like this over the last few days except yesterday when he was a little bit more awake. CT of the head checked a few days ago was normal. At this point, we will continue monitoring this patient closely. 10. Physical deconditioning. He is not a candidate for physical therapy considering all his mental status changes and his comorbidities. 11. Iron deficiency anemia. Hemoglobin is stable so far. We will continue with the same management. 12. Chronic obstructive pulmonary disease. Patient is not in an exacerbation. We will continue with home medications. 13. Code status. Do Not Resuscitate level 1. cc: Aristeo Barriga MD
--- NOTE | 2016-11-21 15:55 | PROGRESS NOTE ---
DATE: 11/21/2016 PRESENT ILLNESS: The patient has bilateral pneumonia and a methicillin-resistant Staph aureus cellulitis of the left leg. MEDICATIONS: This is the 5th day of treatment with ceftaroline as a single agent. PHYSICAL EXAMINATION: Vital Signs: Temperature is 97.8 degrees, pulse 87, respirations 16, blood pressure 111/53. Generally: This is a chronically ill-appearing, elderly male. He is in no acute distress. Lungs: Clear to auscultation. Cardiovascular: Regular heart rate. Neurologic: Patient is more awake today and he is talking. Abdomen: Soft and nontender. Extremities: The left leg erythema has cleared. LABORATORY AND X-RAY: There is no new x-ray. Creatinine is 1. GFR is greater than 60. CBC shows a white count of 13,410, hemoglobin 9.7, and platelet count 213,000. ASSESSMENT AND PLAN: 1. I plan to continue ceftazidime for the patient's pneumonia and left leg cellulitis. 2. Comorbidities: He is very elderly and he has COPD in addition. cc: Gurpreet Whitmore MD
[2016-11-21] MEDS: PRAVACHOL PO SCH (22:45)
[2016-11-22] MEDS: DUONEB (A & A) INH SCH ×4 (04:01→21:26)
[2016-11-22] MEDS: LOPRESSOR PO SCH ×3 (06:05→17:33)
[2016-11-22] MEDS: TEFLARO 600 MG in NS 250 ML IV SCH ×2 (06:28→17:33)
[2016-11-22] MEDS: D5W 1,000 ML IV SCH (06:28)
[2016-11-22] MEDS: PRILOSEC PO SCH (06:29)
[2016-11-22 07:34] LABS: BASO% 0.1 % (0.0-0.8); EOS# 0.13 X1000 (0.0-0.7); EOS% 1.1 % (0.0-10.0); HEMATOCRIT 28.1 % (42.0-52.0); HEMOGLOBIN 8.9 g/dL (14.0-18.0); IMM GRAN# 0.08 X1000 (0.0-0.04); IMM GRAN% 0.7 % (0.0-0.5); LYMPH# 0.65 X1000 (1.2-3.4); LYMPH% 5.5 % (20.5-51.1); MANUAL DIFF NEEDED? YES; MCHC 31.7 g/dL (33-37); MCV 91.5 FL (81-99); MONO# 1.02 X1000 (0.11-0.59); MONO% 8.6 % (1.7-9.3); MPV 11.3 FL (7.4-10.4); PLT 180 X1000 (130-400); RBC 3.07 XMIL (4.7-6.1)
[2016-11-22 07:47] LABS: AGAP 16; BUN 24 mg/dL (8-22); CALCIUM 7.9 mg/dL (8.8-10.2); CHLORIDE 104 mmol/L (98-107); COSMO 280; POTASSIUM 3.4 mmol/L (3.5-5.1); SODIUM 138 mmol/L (136-145); TCO2 18 mmol/L (25-35)
[2016-11-22 08:17] LABS: BANDS 4 % (0-1); LYMPHS 2 % (21-51)
[2016-11-22] MEDS ORDERED: BROVANA NEB ONE (09:29)
[2016-11-22] MEDS: BROVANA NEB INH SCH ×2 (09:56→19:23)
[2016-11-22] MEDS: PREDNISONE PO SCH (10:46)
[2016-11-22] MEDS: LASIX PO SCH (10:46)
[2016-11-22] MEDS: NEURONTIN PO SCH ×3 (10:47→17:33)
[2016-11-22] MEDS: KLOR-CON PO SCH (10:47)
[2016-11-22] MEDS: FOLIC ACID PO SCH (10:47)
[2016-11-22] MEDS: UROXATRAL PO SCH (10:47)
[2016-11-22] MEDS: ASPIRIN PO SCH (10:47)
[2016-11-22] MEDS: LANOXIN IV SCH (10:48)
[2016-11-22] MEDS: HEPARIN SUBQ SCH (10:48)
--- NOTE | 2016-11-22 14:27 | PROGRESS NOTE ---
DATE: 11/22/2016 SUBJECTIVE: Patient is a little bit awake today. He does answer questions like his name and date of . OBJECTIVE: Vital Signs: Temperature 97.9 degrees, heart rate 81, respiratory rate 20, blood pressure 116/45. O2 saturation 95% on Venturi mask15 liters per minute. General: This is a chronically ill-looking, frail, 86-year-old male, lying in bed, in no acute distress. HEENT: Head is normocephalic and atraumatic. Anicteric sclerae and pale conjunctivae. Mucous membranes moist. Neck supple. No JVD. No carotid bruits. No lymphadenopathy. No thyromegaly. Cardiovascular: S1, S2 heard. No murmurs, gallops, or rubs. Regular rate and rhythm. Respiratory: Decreased breath sounds globally with some coarse breath sounds in both bases; same when compared with yesterday. Patient is not using any accessory muscles or work of breathing. Abdomen is soft, nontender to palpation. Bowel sounds present. No organomegaly. Extremities: No clubbing, cyanosis, or edema. Peripheral pulses present in both legs. Neurological: Patient is a little bit more awake today but follows commands. Moves 4 extremities spontaneously. LABORATORY DATA: Reviewed. ASSESSMENT AND PLAN: 1. Metabolic encephalopathy. That condition is somewhat better today. The white cell count is slightly elevated but the sodium is back to normal. 2. Atypical pneumonia. Patient is under the care of Dr. Whitmore from Infectious Disease. 3. Left heel cellulitis secondary to Methicillin-resistant Staphylococcus aureus infection. Patient is on ceftaroline day #6. The patient is doing good. We will continue with the same management. 4. Acute coronary syndrome. The patient had a non ST-segment elevation myocardial infarction. The patient was followed by Cardiology. We will continue with the same management. 5. Congestive heart failure, systolic and diastolic. The patient has been receiving plenty of fluid to correct hypernatremia, but she had Lasix, 3 doses total, and apparently he does not seem to be overloaded. In any case, we can definitely stop some of his fluids. 6. Hypertension. Blood pressure is under control. 7. Hyperlipidemia. Patient is on home medications. 8. Peripheral vascular disease, aware. 9. Advanced dementia. This condition goes on and off and, by now, he is a little bit better. We will continue checking on this patient closely. 10. Physical deconditioning. Not a candidate apparently for physical therapy considering his mental status changes. 11. Iron deficiency anemia. Hemoglobin continues to be stable. 12. Chronic obstructive pulmonary disease. Patient is not in any exacerbation. We will continue with home medications. 13. CODE STATUS. DNR LEVEL 1. Addendum : I have asked nurse to talk to family to come to hospital tomorrow because patient prognosis is poor. They replied they agreed to have hospice involved in his care. Will put a consult. cc: Aristeo Barriga MD MTDD
--- NOTE | 2016-11-22 15:16 | PROGRESS NOTE ---
DATE: 11/22/2016 PRESENT ILLNESS: The patient has a bilateral pneumonia and methicillin-resistant Staphylococcus aureus cellulitis of the left leg. MEDICATIONS: The patient is on ceftaroline. This is the 6th day of treatment. PHYSICAL EXAMINATION: Vital Signs: Temperature is 98 degrees, pulse 81, respirations 20, blood pressure 116/45. Generally, this is a chronically ill-appearing, elderly male, who seems to be in some sort of delirium. Lungs clear to auscultation. Cardiovascular: Regular heart rate. Abdomen soft and nontender. Both feet have dressings around them. The dressings are intact. LABORATORY DATA AND X-RAY: There is no new x-ray. The CBC for today shows a white count of 11,850. Hemoglobin 8.9 and platelet count 180,000. Creatinine is 1. GFR is greater than 60. ASSESSMENT: The patient has pneumonia and leg cellulitis. PLAN: My plan is to continue Ceftaroline for the patient's pneumonia and left leg cellulitis. It is day 6 of the patient's use of the antibiotic. Comorbidities include the patient is very elderly. He has COPD, as well. cc: Gurpreet Whitmore MD
[2016-11-22] MEDS: SANTYL OINT TOP SCH (16:06)
[2016-11-23] MEDS: DUONEB (A & A) INH SCH (03:35)
[2016-11-23] MEDS: TEFLARO 600 MG in NS 250 ML IV SCH (06:23)
[2016-11-23] MEDS: PRILOSEC PO SCH (06:31)
[2016-11-23 06:47] LABS: BASO% 0.1 % (0.0-0.8); EOS# 0.09 X1000 (0.0-0.7); EOS% 0.8 % (0.0-10.0); HEMATOCRIT 27.8 % (42.0-52.0); HEMOGLOBIN 8.8 g/dL (14.0-18.0); IMM GRAN# 0.09 X1000 (0.0-0.04); IMM GRAN% 0.8 % (0.0-0.5); LYMPH# 0.55 X1000 (1.2-3.4); LYMPH% 4.8 % (20.5-51.1); MANUAL DIFF NEEDED? YES; MCH 29.2 PG (27-31); MCHC 31.7 g/dL (33-37); MCV 92.4 FL (81-99); MONO# 0.84 X1000 (0.11-0.59); MONO% 7.3 % (1.7-9.3); MPV 11.5 FL (7.4-10.4); NEUT% 86.2 % (42.2-75.2); PLT 202 X1000 (130-400); RBC 3.01 XMIL (4.7-6.1)
[2016-11-23 07:00] LABS: AGAP 14; BUN 25 mg/dL (8-22); CHLORIDE 106 mmol/L (98-107); COSMO 282; POTASSIUM 3.9 mmol/L (3.5-5.1); SODIUM 139 mmol/L (136-145); TCO2 19 mmol/L (25-35)
[2016-11-23 07:10] LABS: BANDS 2 % (0-1); LYMPHS 6 % (21-51); MONO 2 % (1-9); NRBC 1 % (0-0)
[2016-11-23] MEDS: LANOXIN IV SCH (10:22)
[2016-11-23] MEDS: NEURONTIN PO SCH (10:23)
[2016-11-23] MEDS: LASIX PO SCH (10:23)
[2016-11-23] MEDS: FOLIC ACID PO SCH (10:23)
[2016-11-23] MEDS: KLOR-CON PO SCH (10:24)
[2016-11-23] MEDS: PREDNISONE PO SCH (10:24)
[2016-11-23] MEDS: UROXATRAL PO SCH (10:24)
[2016-11-23] MEDS: SANTYL OINT TOP SCH (10:24)
[2016-11-23] MEDS: ASPIRIN PO SCH (10:24)
[2016-11-23] MEDS: BROVANA NEB INH SCH (11:40)
--- NOTE | 2016-11-23 12:23 | PROGRESS NOTE ---
DATE: 11/23/2016 SUBJECTIVE: Patient is more lethargic today. He does not answer any questions or follows commands. OBJECTIVE: Vital Signs: Temperature 98.4 degrees, heart rate 78, respiratory 25, blood pressure 129/56, O2 saturation 97% on Venturi mask. General: This is a chronically ill-looking 86-year- old, male, lying in bed, in no acute distress. HEENT: Head is normocephalic and atraumatic. Neck: Supple. No JVD noted. No carotid bruits. No lymphadenopathy. No thyromegaly. Cardiovascular: S1, S2 heard. No murmurs, gallops, or rubs. Regular rate and rhythm. Respiratory: Coarse breath sounds in both bases; getting definitely worse. Patient is not using any accessory muscles or having work of breathing. Abdomen soft, nontender to palpation. No organomegaly noted. Neurologic Patient does not answer any questions or moves any extremities because his is leaking. ASSESSMENT AND PLAN: 1. Metabolic encephalopathy. 2. Atypical pneumonia. 3. Left heel cellulitis secondary to Methicillin-resistant Staphylococcus aureus infection. 4. Acute coronary syndrome. 5. Congestive heart failure, systolic and diastolic. 6. Hypertension. 7. Hyperlipidemia. 8. Hypernatremia. 9. Peripheral vascular disease. 10. Advanced dementia. 11. Deconditioned. 12. Iron deficiency anemia. 13. Chronic obstructive pulmonary disease. 14. CODE STATUS. DNR LEVEL 1. PLAN: This patient has been admitted for the conditions mentioned above. He has been here in the hospital for 18 days but, unfortunately, he did not improve. At this time, as per daughter, we are going to consult hospice. They are supposed to come and evaluate this patient. As soon as we have everything arranged, we will send him home with hospice. At this time, we are going to provide medication for comfort care only. He will be on Dilaudid and Ativan and Haloperidol. We will continue following this patient here in the hospital. cc: Aristeo Barriga MD
[2016-11-23] MEDS: DILAUDID IV PRN ×7 (13:15→22:56)
[2016-11-23] MEDS ORDERED: NS 1,000 ML ONE (14:23)
[2016-11-23] MEDS: NS 1,000 ML IV SCH (14:40)
--- NOTE | 2016-11-23 17:37 | PROGRESS NOTE ---
DATE: 11/23/2016 PRESENT ILLNESS: The patient has a bilateral pneumonia and methicillin-resistant Staph aureus cellulitis of the left leg. MEDICATIONS: The patient was on ceftaroline, somehow it got deleted from the orders but my plan is to restart it today. This will be the 6th day of treatment with it. PHYSICAL EXAMINATION: Vital Signs: Temperature is 98.4 degrees, pulse 78, respirations 18, blood pressure 129/56. General: This is a chronically ill and malnourished appearing, elderly male. He is in no acute distress. Lungs: Clear to auscultation. Cardiovascular: Regular heart rate. Abdomen: Soft and nontender. Both feet have erythematous areas and some shallow ulcerated areas. LAB AND X-RAY: There is no new x-ray finding today. The lab work shows a CBC with a white count of 11,560, hemoglobin 8.8, and platelet count 202,200. Creatinine is 1.0. GFR is greater than 60.. ASSESSMENT AND PLAN: The patient has cellulitis and ulcers on both feet. He also has pneumonia. My plan is to restart ceftaroline. COMORBIDITIES: Include the following: The patient is elderly. He has COPD. cc: Gurpreet Whitmore MD
--- NOTE | 2016-11-23 17:55 | PROGRESS NOTE ---
DATE: 11/23/2016 There has been a change in the patient's care. He is on comfort measures only. Therefore I am discontinuing his antibiotic and I will be available to see the patient on a p.r.n. basis. I am signing off for now. cc: Gurpreet Whitmore MD MTDD
[2016-11-23] MEDS ORDERED: TEFLARO 600 MG in NS 250 ML IV SCH (18:00)
[2016-11-24] MEDS: DILAUDID IV PRN ×13 (03:14→23:30)
[2016-11-24 07:12] LABS: BASO% 0.2 % (0.0-0.8); EOS# 0.31 X1000 (0.0-0.7); EOS% 2.5 % (0.0-10.0); HEMATOCRIT 30.4 % (42.0-52.0); HEMOGLOBIN 9.3 g/dL (14.0-18.0); IMM GRAN# 0.15 X1000 (0.0-0.04); IMM GRAN% 1.2 % (0.0-0.5); LYMPH% 7.2 % (20.5-51.1); MANUAL DIFF NEEDED? YES; MCH 28.9 PG (27-31); MCHC 30.6 g/dL (33-37); MCV 94.4 FL (81-99); MONO# 0.89 X1000 (0.11-0.59); MONO% 7.1 % (1.7-9.3); MPV 10.8 FL (7.4-10.4); NEUT% 81.8 % (42.2-75.2); PLT 269 X1000 (130-400); RBC 3.22 XMIL (4.7-6.1)
[2016-11-24 07:37] LABS: EOS 4 % (1-10); LYMPHS 6 % (21-51); MONO 12 % (1-9)
[2016-11-24 07:42] LABS: AGAP 17; BUN 28 mg/dL (8-22); CALCIUM 8.2 mg/dL (8.8-10.2); CHLORIDE 108 mmol/L (98-107); COSMO 292; POTASSIUM 3.9 mmol/L (3.5-5.1); SODIUM 144 mmol/L (136-145); TCO2 19 mmol/L (25-35)
[2016-11-24] MEDS: NS 1,000 ML IV SCH ×2 (12:51→14:19)
--- NOTE | 2016-11-24 15:36 | PROGRESS NOTE ---
DATE: 11/24/2016 SUBJECTIVE: This patient is lethargic. As per the nurse this patient just received pain medication and he has been following simple commands for her and he is oriented x1 but not for me. OBJECTIVE: Vital Signs: Temperature 98.6 degrees, pulse 115, respiratory rate 19, blood pressure 95/44, oxygen saturation 92 on a Venturi mask, 40% FiO2. General: Chronically ill male lying in bed in no acute distress. HEENT: Head normocephalic. No trauma. PERRLA. Neck: Supple. No JVD. No masses. Central trachea. Cardiovascular: RRR. Chest: Coarse breath sounds globally. Abdomen: Soft, nontender, nondistended. No hepatosplenomegaly. Neurological: The patient is sleepy but arousable, looks lethargic. He is not following commands or answering questions for me. LABORATORY: WBC 12.5, hemoglobin 9.3, hematocrit 30.4, platelets 269,000. Sodium 144, potassium 3.9, chloride 108, bicarbonate 19, BUN 28, creatinine 1, glucose 90, calcium 8.2. ASSESSMENT AND PLAN: 1. Metabolic encephalopathy. 2. Atypical pneumonia. 3. Left heel cellulitis secondary to methicillin-resistant Staphylococcus aureus infection. 4. Acute coronary syndrome. 5. Congestive heart failure systolic and diastolic. 6. Hypertension. 7. Hyperlipidemia. 8. Hypernatremia, resolved. 9. Peripheral vascular disease. 10. Advanced dementia. 11. Physical deconditioning. 12. Iron deficiency anemia. 13. Chronic obstructive pulmonary disease not in exacerbation. 14. Code status do not resuscitate level 1. PLAN: This patient is in comfort measures only, he is lying on the bed with no distress, no family members at the bedside. I do believe that this patient can go home with hospice but I am not quite sure if the family can take care of him so once I am able to talk to the family and to the social media manager I am going to have a better picture of this. For now, I will continue with the same treatment. cc: Denny Dodge MD
[2016-11-25 06:59] LABS: BASO% 0.2 % (0.0-0.8); EOS# 0.08 X1000 (0.0-0.7); EOS% 0.6 % (0.0-10.0); HEMATOCRIT 29.5 % (42.0-52.0); HEMOGLOBIN 9.2 g/dL (14.0-18.0); IMM GRAN% 1.5 % (0.0-0.5); LYMPH# 0.86 X1000 (1.2-3.4); LYMPH% 6.4 % (20.5-51.1); MANUAL DIFF NEEDED? YES; MCH 29.1 PG (27-31); MCHC 31.2 g/dL (33-37); MCV 93.4 FL (81-99); MONO# 0.82 X1000 (0.11-0.59); MONO% 6.1 % (1.7-9.3); MPV 10.7 FL (7.4-10.4); NEUT% 85.2 % (42.2-75.2); PLT 318 X1000 (130-400); RBC 3.16 XMIL (4.7-6.1)
[2016-11-25 07:25] LABS: CALCIUM 8.4 mg/dL (8.8-10.2); POTASSIUM 3.9 mmol/L (3.5-5.1)
[2016-11-25 08:01] LABS: BANDS 6 % (0-1); LYMPHS 6 % (21-51); MONO 6 % (1-9)
[2016-11-25] MEDS: DILAUDID IV PRN ×12 (08:27→23:37)
--- NOTE | 2016-11-25 11:09 | PROGRESS NOTE ---
DATE: 11/25/2016 SUBJECTIVE: This patient is lethargic. He mumbles words but I cannot understand what he says. He is not following commands. I will continue with comfort measures only. OBJECTIVE: Vital Signs: Temperature 98 degrees, pulse 112, respiratory rate 26, blood pressure 140/72, oxygen saturation 87 on a Venturi mask, 15% oxygen flow. General: Chronically ill, male, lying in bed in no acute distress. HEENT: Head normocephalic. No trauma. PERRLA. Neck: Supple. No JVD. No masses. Central trachea. Cardiovascular: RRR. Chest: Coarse breath sounds globally with generalized rhonchi. Abdomen: Soft, nontender, nondistended. No hepatosplenomegaly. Neurological Examination: This patient is sleepy. He mumbles words. He is not following commands. He is lethargic. Laboratory: WBC 13.4, hemoglobin 9.2, hematocrit 29.5, platelets 318,000. Sodium 145, potassium 3.9, chloride 109, bicarbonate 18, BUN 37, creatinine 1.2, glucose 82, calcium 8.4. ASSESSMENT AND PLAN: 1. Metabolic encephalopathy. 2. Atypical pneumonia. 3. Left heel cellulitis secondary to methicillin-resistant Staphylococcus aureus infection. 4. Acute coronary syndrome. 5. Congestive heart failure, systolic and diastolic. 6. Hypertension. 7. Hyperlipidemia. 8. Hypernatremia, resolved. 9. Peripheral vascular disease. 10. Advanced dementia. 11. Physical deconditioning. 12. Iron deficiency anemia. 13. Chronic obstructive pulmonary disease, not in exacerbation. 14. Dx-[id number] level 1. PLAN: This patient is on comfort measures only. I will stop having lab work for this patient. He is lying in bed, in no distress. He is cachectic. I do believe this patient can go home with hospice but I am not quite sure if the family can take care of him so probably the director of social work is already involved. For now, I will continue with the same management. cc: Denny Dodge MD
[2016-11-25] MEDS: NS 1,000 ML IV SCH (14:35)
[2016-11-26] MEDS: DILAUDID IV PRN ×7 (03:09→21:37)
[2016-11-26] MEDS: NS 1,000 ML IV SCH ×2 (10:59→14:40)
--- NOTE | 2016-11-26 14:21 | PROGRESS NOTE ---
DATE: 11/26/2016 SUBJECTIVE: This patient is lethargic. He is able to open his eyes. He tried to mumble some words, but I cannot understand. He is not following commands for me. I will continue with comfort measures only. I do not think he qualifies for inpatient hospice, but probably we can send this patient to home or a facility with comfort measures only and/or hospice. OBJECTIVE: Vital Signs: Temperature 97.7, pulse 87, respiratory rate 18, blood pressure 125/64, oxygen saturation 98 on a nonrebreathing mask, 50% oxygen flow. HEENT: Head normocephalic. No trauma. PERRLA. Neck: Supple. No JVD. No masses. Central trachea. Chest: Coarse breath sounds with generalized rhonchi. Abdomen: Soft, nontender, nondistended. No hepatosplenomegaly. Neurological: This patient is lethargic. He mumbles words. He is not following commands. LABORATORY: No lab work done today. ASSESSMENT: 1. Metabolic encephalopathy. 2. Atypical pneumonia. 3. Left heel cellulitis secondary to MRSA infection. 4. Acute coronary syndrome. 5. Congestive heart failure, systolic and diastolic. 6. Hypertension. 7. Hyperlipidemia. 8. Hypernatremia/resolved. 9. Peripheral vascular disease. 10. Advanced dementia. 11. Physical deconditioning. 12. Iron-deficiency anemia. 13. Chronic obstructive pulmonary disease, not in exacerbation. CODE STATUS: Do Not Resuscitate level 1. PLAN: This patient is on comfort measures only, he is cachectic. I do not think he qualifies for inpatient hospice, but he does for outpatient hospice. utility worker driver on board. cc: Denny Dodge MD
[2016-11-26 19:42] VITALS: BP 134/64
[2016-11-26] MEDS ORDERED: ATROPINE 1% OPHTH SOLN SL PRN (22:12)
--- NOTE | 2016-11-27 15:44 | DISCHARGE SUMMARY ---
ADMISSION DATE: 11/05/2016 DISCHARGE DATE: 11/27/2016 DATE OF ADMISSION: 11/05/2016. DATE OF EXPIRATION: 11/26/2016 at 22:50. CONSULTATIONS: 1. Vicente Mcclure MD with Cardiology. 2. Gurpreet Whitmore MD with Infectious Disease. PERTINENT PROCEDURES: 1. Chest CT showed patchy atypical pneumonia with possible rapidly progressive fibrosis, right hilar and mediastinal adenopathy, ectasia of the ascending aorta, coronary atherosclerosis, thyroid nodules. 2. Nuclear bone scan showed no evidence of osteomyelitis. 3. Left foot x-ray showed no acute disease. 4. Head CT showed advanced chronic changes but no definite acute intracranial pathology. DISCHARGE DIAGNOSES: 1. Metabolic encephalopathy. 2. Atypical pneumonia. 3. Left heel cellulitis secondary to Methicillin-resistant Staphylococcus aureus infection. 4. Acute coronary syndrome. 5. Congestive heart failure systolic and diastolic. 6. Hypertension. 7. Hyperlipidemia. 8. Hyponatremia resolved. 9. Peripheral vascular disease. 10. Advanced dementia. 11. Physical deconditioning. 12. Iron deficiency anemia. 13. Chronic obstructive pulmonary disease not in exacerbation. 14. DNR level 1 on comfort measures. The patient on 11/26/2016 at 22: 50. HOSPITAL COURSE: Mr. Jang is an 86-year-old male with chronic systolic heart failure with EF of 35%, hypertensive heart disease, coronary artery disease, peripheral vascular disease, hyperlipidemia, BPH, prior history of bladder cancer, COPD, peptic ulcer disease who came to the ED for progressively getting short of breath, dyspnea on exertion, decreased exercise tolerance. However, in 1-2 weeks white count was 14,000, hemoglobin and hematocrit was 9 and 30, BUN was 14, creatinine was 1.8, troponin was 0.161, CK was 122, proBNP was 14,000, D-dimer was 1.73. The patient was admitted for acute on chronic heart failure and started on diuresis , as well as COPD exacerbation continued on bronchodilator, maintenance dose of steroids, supplemental O2, and aggressive pulmonary toilet. Cardiology recommended to continue with diuresis and noninvasive procedures. His enzymes are consistent with a non-STEMI. Results of the CT showed patchy atypical pneumonia. Dr. Gurpreet Whitmore was asked to see the patient. He switched him from Rocephin to cefepime and increased the dose of his azithromycin. He also cultured his left heel cellulitis and did scans to rule out any osteomyelitis. It did grow out MRSA. He was made a DNR level 1. Dr. Whitmore discontinued his azithromycin, cefepime and daptomycin, and started the patient on ceftaroline. The patient's mental status was declining. He was oriented just to person. Dr. Blanco has been talking with the social media project manager. Because the patient lives by himself and at this point he would not be able to care for himself any longer (he does have family members that live in town but they cannot take care of him) and given his poor prognosis and all of his comorbidities, he will need a long-term care facility. Throughout his admission he became more confused, more lethargic, sometimes he was arousable but he did not talk. He does not follow commands. On 11/23/2016, the patient had been admitted for 18 days. Unfortunately he did not improve. The daughter requested a consultation for hospice and the patient was placed on comfort measures only. He was placed on Dilaudid, Ativan and Haldol. On 11/26/2016 at 22:50 the patient . Discharge time: 30 minutes Dictated by [employer] for Denny Dodge MD cc: MD Benja Jasmine MD MTDD
== END 2016-11-26 22:50 | disposition expired ==
LOC: ED 19:00 → 3N 22:59 → 3S 23:16 → SUATTDRO 23:16 → 3N 11-14 15:25
PROVIDERS: ATTEND Internal Medicine